=== PATIENT | male | born 1960 | race Caucasian/White ===

== ENCOUNTER 2018-01-22 16:58 | Inpatient (IN) | payer MEDICARE, MEDICAID ==
--- NOTE | 2018-01-22 17:34 | ED Physician Chart ---
ED Chief Complaint/HPI - Patient Information Date Seen:: 01/22/18 Time Seen:: 17:10 Chief Complaint:: Agitation History of Present Illness:: onset x 3 days of agitation and aggressive behavior; no report of trauma, H/as, neck pain, C/P, SOB, Abd. Pain, A/N/V/D/C, fever, chills, SIs, or urinary s/s Allergies:: Allergies Allergy/AdvReac Type Severity Reaction Status Date / Time fluphenazine Allergy Verified 01/22/18 17:13 haloperidol [From Haldol] Allergy Verified 01/22/18 17:12 PROLIXIN Allergy Uncoded 12/21/15 16:57 Vitals:: Vital Signs - 8 hr 01/22/18 17:14 Temp 98.7 F HR 82 RR 20 BP 136/82 O2 Sat % 100 Historian:: Patient, EMS Review:: Nurse's Note Reviewed, Old Chart Reviewed, EMS run form Reviewed ED Review of Systems - Review of Systems General/Constitutional: No fever, No chills, No weight loss, No weakness, No diaphoresis, No edema, No loss of appetite Skin: No skin lesions, No rash, No bruising Head: No headache, No light-headedness Eyes: No loss of vision, No pain, No diplopia ENT: No earache, No nasal drainage, No sore throat, No tinnitus Neck: No neck pain, No swelling, No thyromegaly, No stiffness, No mass noted Cardio Vascular: No chest pain, No palpitations, No PND, No orthopnea, No edema Pulmonary: No SOB, No cough, No sputum, No wheezing GI: No nausea, No vomiting, No diarrhea, No pain, No melena, No hematochezia, No constipation, No hematemesis G/U: No dysuria, No frequency, No hematuria, No nacturia Musculoskeletal: No bone or joint pain, No back pain, No muscle pain Endocrine: No polyuria, No polydipsia Psychiatric: Prior psych history, Depression, Anxiety, No suicidal ideation, No homicidal ideation, Auditory hallucination, No visual hallucination Hematopoietic: No bruising, No lymphadenopathy Allergic/Immuno: No urticaria, No angioedema Neurological: No syncope, No focal symptoms, No weakness, No paresthesia, No headache, No seizure, No dizziness, No confusion, No vertigo ED Past Medical History - Past Medical History Obtainable: Yes Past Medical History: HTN, DM, CAD, CHF, Asthma/COPD, ESRD Family History: HTN Social History: Non Smoker, No Alcohol, No Drug Use, Single, Care Facility Surgical History: None Psychiatricy History: Depression, Schizophrenia, Bipolar Medication: Reviewed Family Medical History - Family Member Mother History Unknown: Yes ED Physical Exam - Physical Examination General/Constitutional: Awake, Well-developed, well-nourished, Alert, No distress, GCS 15, Non-toxic appearing, Ambulatory Head: Atraumatic Eyes: Lids, conjuctiva normal, PERRL, EOMI Skin: Nl inspection, No rash, No skin lesions, No ecchymosis, Well hydrated, No lymphadenopathy ENMT: External ears, nose nl, TM canals nl, Nasal exam nl, Lips, teeth, gums nl , Oropharynx nl, Tonsils nl Neck: Nontender, Full ROM w/o pain, No JVD, No nuchal rigidity, No bruit, No mass, No stridor Respiratory: Nl effort/Exclusion, Clear to Auscultation, No Wheeze/Rhonchi/Rales Cardio Vascular: RRR, No murmur, gallop, rubs, NL S1 S2, Carotid/Femoral/Distal pulses equal bilaterally GI: No tenderness/rebounding/guarding, No organomegaly, No hernia, Normal BS's, Nondistended, No mass/bruits, No McBurney tenderness : No CVA tenderness Extremities: No tenderness or effusion, Full ROM, normal strength in all extremities, No edema, Normal digits & nails Neuro/Psych: Alert/oriented, DTR's symmetric, Normal sensory exam, Normal motor strength, Judgement/insight normal, Mood normal, Normal gait, No focal deficits Other Neuro/Psych comments:: + Psychomotor Agitation; Mood/Affect: Labile; no SIs Misc: Normal back, No paraspinal tenderness ED Labs/Radiology/EKG Results - Lab Results Comments:: unremarkable ED Septic Shock - . Is Septic Shock (SBP<90, OR Lactate>4 mmol\L) present?: No - <6hrs of presentation: Vital Signs: Vital Signs - 8 hr 01/22/18 17:14 Temp 98.7 F HR 82 RR 20 BP 136/82 O2 Sat % 100 ED Reassessment (Disposition) - Reassessment Reassessment Condition:: Improved - Diagnosis Diagnosis:: Dx: Agitation; Psychosis; Bipolar Disorder - Aftercare/Follow up Instructions Aftercare/Follow-Up Instructions:: Counseled pt regarding lab results/diagnosis & need follow up, Counseled pt & family regarding lab results/diagnosis & need follow up - Patient Disposition Discharge/Transfer:: Acute Care w/in this hosp Accepting Physician:: Dr. Foley Time Called:: 1899 Time Responded:: 19:00 Admitted to:: [facility] Spoke to:: Dr. Foley Admitting Medical Physician:: Dr. Foley Admitting Psych Physician:: Dr. Dhaliwal Condition at Disposition:: Stable, Improved
[2018-01-22 17:45] LABS: % BASOPHILS 1.3 % (0.0-2.0); % EOSINOPHILS 1.2 % (0.0-5.0); % LYMPHOCYTES 31.9 % (20.0-50.0); % MONOCYTES 10.4 % (2.0-10.0); % NEUTROPHILS 55.2 % (40.0-80.0); BASOPHILE ABSOLUTE 0.1 Th/cumm (0-0.2); EOSINOPHILE ABSOLUTE 0.1 Th/cmm (0.1-0.4); HEMATOCRIT 45.8 % (41.0-60); HEMOGLOBIN 15.5 gm/dL (12-16); LYMPHOCYTE ABSOLUTE 2.3 Th/cmm (1.5-3.0); MEAN CELL VOLUME 93.5 fl (80-99); MEAN CORPUSCULAR HEMOGLOBIN 31.6 pg (26.0-30.0); MEAN CORPUSCULAR HGB CONC 33.8 pg (28.0-36.0); MEAN PLATELET VOLUME 7.9 fl; MONOCYTE ABSOLUTE 0.8 Th/cmm (0.3-1.0); PLATELET COUNT 214 Th/cmm (150-400); RED CELL DISTRIBUTION WIDTH 12.3 % (11.5-20.0); WHITE BLOOD COUNT 7.3 Th/cmm (4.8-10.8)
[2018-01-22 18:04] LABS: ACETAMINOPHEN < 10.0 ug/mL (10.0-30.0); ALB/GLOB RATIO 1.1 (1.0-1.8); ALBUMIN 3.7 gm/dL (4.2-5.5); ALKALINE PHOSPHATASE 28 U/L (34-104); BILIRUBIN,TOTAL 0.3 mg/dL (0.3-1.0); BUN - UREA NITROGEN 29 mg/dL (7-25); CALCIUM SERUM 9.9 mg/dL (8.6-10.3); CARBON DIOXIDE 21.2 mEq/L (21.0-31.0); CHLORIDE 103 mEq/L (98-107); CHOLESTEROL 209 mg/dL (<200); CREATININE - SERUM 1.8 mg/dL (0.7-1.3); GFR AFRICAN-AMERICAN 50.4 ml/min (>90); GFR NON AFRICAN-AMERICAN 41.7 ml/min; GLUCOSE 186 mg/dL (70-105); HDL -HIGH DENSITY LIPOPROTEIN 34 mg/dL (23-92); POTASSIUM SERUM 4.2 mEq/L (3.5-5.1); SALICYLATES (ASPIRIN) < 25.0 mg/L (30.0-100.0); SGOT 16 U/L (13-39); SGPT/ALT 22 U/L (7-52); SODIUM SERUM 130 mEq/L (136-145); TRIGLYCERIDES 435 mg/dL (<150)
[2018-01-22 20:30] VITALS: BP 146/89
[2018-01-22] MEDS ORDERED: Non-Formulary Item 1 EA (Glucagon,Human Recombinant [Glucagon Emergency Kit] 1 MG) SUBQ PRN (22:56)
--- NOTE | 2018-01-23 02:03 | History & Physical ---
ADMIT DATE: 01/22/2018 HISTORY OF PRESENT ILLNESS: The patient is a 58-year-old male with long history of diabetes mellitus, hypertension, psychosis and Alzheimer disease, admitted to our [facility] and Dr. Dhaliwal's service for treatment. The patient will resume his medication and diet. No fever, no chills, no nausea, no vomiting. PAST MEDICAL HISTORY: Significant for psychosis, hypertension, diabetes mellitus and hyperlipidemia. PAST SURGICAL HISTORY: No recent surgery. ALLERGIES: He is allergic to FLUPHENAZINE, HALOPERIDOL and PROLIXIN. SOCIAL HISTORY: No smoking, no alcohol, no drug. FAMILY HISTORY: Noncontributory. REVIEW OF SYSTEMS: IMMUNOSYSTEM: No history of chronic renal disorder. CARDIOVASCULAR SYSTEM: He has history of hypertension. No coronary artery disease. ENDOCRINE SYSTEM: He has history of diabetes mellitus. GASTROINTESTINAL SYSTEM: No upper or lower gastrointestinal bleed. NEUROLOGICAL: He has history of psychosis. SKELETOMUSCULAR SYSTEM: No muscular dystrophy. HEMATOLOGICAL SYSTEM: No bleeding tendency. RESPIRATORY SYSTEM: No asthma. GENITOURINARY: No dysuria or hematuria. PHYSICAL EXAMINATION: GENERAL: He is awake. Not coherent. VITAL SIGNS: Temperature 98.7, heart rate 82 and blood pressure is 132/92. HEENT: Normocephalic. Pupils reactive to light and accommodation. Sclerae clear. NECK: Supple. Negative for lymphadenopathy, JVD or bruit. CHEST: Entry of air bilateral normal. No rhonchi or wheezing. HEART: S1 and S2 normal. No gallop rhythm. ABDOMEN: Soft, bowel sounds positive. EXTREMITIES: No edema. BACK: Nontender. SKIN: Intact. GENITALIA AND RECTAL: Done by primary physician. NEUROLOGIC: Awake, alert and confused. No focal motor or sensory deficit. Cranial nerves 2-12 intact. LABORATORY DATA: White blood cell 7.3, hemoglobin 15.5, hematocrit 45.8 and platelet 214. Sodium 130, potassium 4.2, BUN 29, creatinine 2.8, triglycerides 435 and cholesterol 209. ASSESSMENT: 1. Diabetes mellitus. 2. Hypertension. 3. Hyperlipidemia. 4. Hyponatremia. 5. Chronic kidney disease. 6. Psychosis. PLAN: The patient will be admitted to the hospital under Dr. Dhaliwal's service. Medical problems addressed during the hospitalization psychosis. Medical problems addressed at discharge, hypertension, diabetes mellitus and hyperlipidemia. The patient is medically stable for activity. Thank you, Dr. Dhaliwal, for asking me to see your patient. JOB# [id number]
[2018-01-23] MEDS: INSULIN ASPART SLIDING SCALE 100 UNITS/ML UNIT SUBQ SCH ×4 (06:32→21:13)
[2018-01-23] MEDS ORDERED: INSULIN ASPART, RECOMBINANT 100 UNITS/ML SUBQ SCH (09:00)
[2018-01-23] MEDS ORDERED: LEVOCARNITINE PO SCH (09:00)
[2018-01-23] MEDS: Lactulose 10 Gm/15 mL 30mL UDC PO SCH (09:04)
[2018-01-23 18:41] LABS: A1C % 8.1 % (4.0-6.0)
[2018-01-23] MEDS ORDERED: Insulin Detemir 100 units/mL 10mL Vial SUBQ SCH (21:00)
[2018-01-23] MEDS: Atorvastatin Calcium 10 MG TAB PO SCH (21:12)
[2018-01-23] MEDS: Fenofibrate, Micronized 134 mg Cap PO SCH (21:13)
--- NOTE | 2018-01-23 21:16 | Internal Medicine Prog Note ---
Internal Medicine Subjective - Subjective Service Date: 01/23/18 Patient seen and examined:: with staff Patient is:: awake, in bed, talking Per staff patient has:: no adverse event (HE FEELS WELL) Internal Medicine Objective - Results Result Diagrams: 01/22/18 17:35 01/22/18 17:35 Recent Labs: Laboratory Last Values WBC 7.3 Th/cmm (4.8-10.8) 01/22/18 17:35 RBC 4.90 Mil/cmm (4.30-5.70) 01/22/18 17:35 Hgb 15.5 gm/dL (12-16) 01/22/18 17:35 Hct 45.8 % (41.0-60) 01/22/18 17:35 MCV 93.5 fl (80-99) 01/22/18 17:35 MCH 31.6 pg (26.0-30.0) H 01/22/18 17:35 MCHC Differential 33.8 pg (28.0-36.0) 01/22/18 17:35 RDW 12.3 % (11.5-20.0) 01/22/18 17:35 Plt Count 214 Th/cmm (150-400) 01/22/18 17:35 MPV 7.9 fl 01/22/18 17:35 Neutrophils % 55.2 % (40.0-80.0) 01/22/18 17:35 Lymphocytes % 31.9 % (20.0-50.0) 01/22/18 17:35 Monocytes % 10.4 % (2.0-10.0) H 01/22/18 17:35 Eosinophils % 1.2 % (0.0-5.0) 01/22/18 17:35 Basophils % 1.3 % (0.0-2.0) 01/22/18 17:35 Sodium 130 mEq/L (136-145) L 01/22/18 17:35 Potassium 4.2 mEq/L (3.5-5.1) 01/22/18 17:35 Chloride 103 mEq/L (98-107) 01/22/18 17:35 Carbon Dioxide 21.2 mEq/L (21.0-31.0) 01/22/18 17:35 Anion Gap 10.0 (7.0-16.0) 01/22/18 17:35 BUN 29 mg/dL (7-25) H 01/22/18 17:35 Creatinine 1.8 mg/dL (0.7-1.3) H 01/22/18 17:35 Est GFR ( Amer) 50.4 ml/min (>90) 01/22/18 17:35 Est GFR (Non-Af Amer) 41.7 ml/min 01/22/18 17:35 BUN/Creatinine Ratio 16.1 01/22/18 17:35 Glucose 186 mg/dL (70-105) H 01/22/18 17:35 POC Glucose 99 MG/DL (70 - 105) 01/23/18 17:29 Hemoglobin A1c % 8.1 % (4.0-6.0) H 01/22/18 17:35 Calcium 9.9 mg/dL (8.6-10.3) 01/22/18 17:35 Total Bilirubin 0.3 mg/dL (0.3-1.0) 01/22/18 17:35 AST 16 U/L (13-39) 01/22/18 17:35 ALT 22 U/L (7-52) 01/22/18 17:35 Alkaline Phosphatase 28 U/L (34-104) L 01/22/18 17:35 Total Protein 7.0 gm/dL (6.0-8.3) 01/22/18 17:35 Albumin 3.7 gm/dL (4.2-5.5) L 01/22/18 17:35 Globulin 3.3 gm/dL 01/22/18 17:35 Albumin/Globulin Ratio 1.1 (1.0-1.8) 01/22/18 17:35 Triglycerides 435 mg/dL (<150) H 01/22/18 17:35 Cholesterol 209 mg/dL (<200) H 01/22/18 17:35 LDL Cholesterol Direct 106 mg/dL (75-193) 01/22/18 17:35 HDL Cholesterol 34 mg/dL (23-92) 01/22/18 17:35 TSH 0.66 uIU/ml (0.34-5.60) 01/22/18 17:35 Salicylates < 25.0 mg/L (30.0-100.0) L 01/22/18 17:35 Acetaminophen < 10.0 ug/mL (10.0-30.0) L 01/22/18 17:35 Ethyl Alcohol < 10 mg/dL (0-10) 01/22/18 17:35 RPR NONREACTIVE (NONREACTIVE) 01/22/18 17:35 - Physical Exam Vitals and I&O: Vital Signs Temp 97.5 F 01/23/18 13:56 Pulse 83 01/23/18 13:56 Resp 20 01/23/18 13:56 BP 145/84 01/23/18 13:56 Pulse Ox 94 01/23/18 13:56 Intake & Output 01/23/18 01/23/18 01/24/18 06:59 18:59 06:59 Intake Total 1200 Balance 1200 Intake: Oral 1200 Other: # Voids 3 Active Medications: Current Medications Aspirin (Ecotrin) 81 mg PO DAILY [facility] Stop: 03/24/18 08:59 Last Admin: 01/23/18 09:04 Dose: Not Given Atorvastatin Calcium (Lipitor) 40 mg PO HS [facility] Stop: 03/24/18 20:59 Chlorpromazine (Thorazine) 100 mg PO BID [facility] Stop: 03/24/18 08:59 Last Admin: 01/23/18 16:22 Dose: 100 mg Clonazepam (Klonopin) 0.5 mg PO BID [facility] PRN Reason: Protocol Stop: 03/24/18 08:59 Last Admin: 01/23/18 16:22 Dose: 0.5 mg Fenofibrate (Tricor) 134 mg PO HS [facility] Stop: 03/24/18 20:59 Insulin Aspart (Novolog Insulin Sliding Scale) 0 units SUBQ ACHS [facility] PRN Reason: Protocol Stop: 03/24/18 07:29 Last Admin: 01/23/18 17:33 Dose: Not Given Insulin Aspart (Novolog) units SUBQ TID [facility] PRN Reason: Protocol Stop: 03/24/18 08:59 Insulin Detemir (Levemir Insulin) 30 units SUBQ HS [facility] Stop: 03/24/18 20:59 Lactulose (Cephulac) 30 gm PO DAILY [facility] Stop: 03/24/18 08:59 Last Admin: 01/23/18 09:04 Dose: Not Given Lisinopril (Zestril) 5 mg PO DAILY [facility] Stop: 03/24/18 16:59 Last Admin: 01/23/18 17:33 Dose: Not Given Lorazepam (Ativan) 0.5 mg PO Q6HR PRN; Protocol PRN Reason: Agitation Stop: 03/23/18 23:41 Miscellaneous (Glucagon,Human Recombinant [Glucagon Emergency Kit]) 1 mg SUBQ ONCE PRN PRN Reason: low sugar level Miscellaneous (Insulin Glargine, Recombinan [Lantus]) 30 unit SUBQ DAILY [facility] Stop: 03/24/18 08:59 Quetiapine Fumarate (Seroquel) 300 mg PO TID [facility] PRN Reason: Protocol Stop: 03/24/18 08:59 Last Admin: 01/23/18 14:11 Dose: 300 mg Zolpidem Tartrate (Ambien) 5 mg PO HS PRN PRN Reason: Insomnia Stop: 03/23/18 23:43 General: demented HEENT: NC/AT, PERRLA, EOMI, anicteric sclerae, throat clear Neck: Supple, No JVD, No thyromegaly, +2 carotid pulse wo bruit, No LAD, + JVD Lungs: CTAB Cardiovascular: RRR, Normal S1, Normal S2, without murmur Abdomen: non-tender, non-distended Neurological: no change Internal Medicine Assmt/Plan - Assessment Assessment: 1.DM. 2.HTN. 3.HYPELIPEDEMIA 4.PSYCHOSIS. - Plan Plan: CONTINUE ON CURRENT MEDICATION AND DIET. Nutritional Asmnt/Malnutr-PDOC - Dietary Evaluation Malnutrition Findings (Please click <Entered> for more info): Nutritional Asmnt/Malnutrition Start: 01/23/18 13: 46 Text: Status: Complete Freq: Document 01/23/18 13:46 HENG (Rec: 01/23/18 13:58 [email or web address] [email or web address]) Nutritional Asmnt/Malnutrition Patient General Information Nutritional Screening High Risk Diagnosis psychosis Pertinent Medical Hx/Surgical Hx psychosis, HTN, DM, hyperlipidemia Subjective Information Pt seen sitting in hallway, confused, eating lunch at time of visit. By observation, pt consumed 90% of his lunch. Pt got angry when talking about diabetes and blood sugar. Pt stated he has no diabetes. glucose 186 at admitting noted . Current [facility]/ [facility] Pertinent Medications novolog, cephulac, seroquel Pertinent Labs 3/21 Na 130, BUN 29, Cr 1.8, glucose 186, POC 267 Nutritional Hx/Data Height 1.78 m Height (Calculated Centimeters) 177.8 Current Weight (lbs) 68.039 kg Weight (Calculated Kilograms) 68.0 Weight (Calculated Grams) 79047.9 [place] Body Weight 166 % [place] Body Weight 90 Body Mass Index (BMI) 21.5 Weight Status Approriate GI Symptoms GI Symptoms None Last BM no record Difficult in: None Skin Integrity/Comment: not indicated Estimated Nutritional Goals BEE in Kcals: Using Current wt Calories/Kcals/Kg 25-30 Kcals Calculated 0458-1192 Protein: Using Current wt Protein g/k-1.2 Protein Calculated 68-82 Fluid: ml 1700-2040ml (1ml/kcal) Nutritional Problem 1. Problem Problem altered nutrition related labs Etiology chronic renal suff, hx of DM Signs/Symptoms: BUN 29, Cr 1.8, glucose 186, POC 267 Malnutrition Alert Protein-Calorie Malnutrition N/A Is there a minimum of two criteria No selected? Query Text:Check all the applicable criteria. A minimum of two criteria are recommended for diagnosis of either severe or non-severe malnutrition. Intervention/Recommendation Comments 1. Continue with CCHO-60gm diet as ordered. Monitor accucheck. 2. Monitor PO intake, wt, labs and skin integrity 3. F/U as moderate risk in 3-5 days, 01/26-01/28 Expected Outcomes/Goals Expected Outcomes/Goals 1. PO intake to meet at least 75% of nutritional needs. 2. Wt stability, skin to remain intact, labs to approach WNL.
[2018-01-24] MEDS: INSULIN ASPART SLIDING SCALE 100 UNITS/ML UNIT SUBQ SCH ×5 (07:45→20:28)
[2018-01-24] MEDS: Lactulose 10 Gm/15 mL 30mL UDC PO SCH (09:23)
[2018-01-24] MEDS: Insulin Detemir 100 units/mL 10mL Vial SUBQ SCH ×2 (10:08→22:13)
[2018-01-24] MEDS: Fenofibrate, Micronized 134 mg Cap PO SCH ×2 (20:23→20:28)
[2018-01-24] MEDS: Atorvastatin Calcium 10 MG TAB PO SCH ×2 (20:23→20:28)
--- NOTE | 2018-01-24 20:45 | Progress Notes ---
DATE: SUBJECTIVE: Chart reviewed and the patient interviewed. Also discussed the patient's condition with the staff and reviewed records and labs. The patient seems to be more depressed and isolative today and he wants to be left alone and stays by himself most of the time. The patient also is still guarded and still seems to be suspicious and paranoid. Also, easily agitated and still have episodes of threatening staff and getting aggressive. Otherwise, the patient is compliant with taking his medications with no side effect of medications. ASSESSMENT: The patient is still agitated and still psychotic. TREATMENT PLAN: Continue monitoring his behavior and work on behavioral modification. Also, yesterday, I increased Seroquel to 300 mg 3 times a day and will continue at same dose. Also, continue Thorazine in a dose of 100 mg twice a day and will continue to follow up his behavior and his condition closely. JOB# [id number]
--- NOTE | 2018-01-24 21:35 | Internal Medicine Prog Note ---
Internal Medicine Subjective - Subjective Service Date: 01/24/18 Patient seen and examined:: with staff Patient is:: awake, in bed, talking Per staff patient has:: no adverse event (HE FEELS WELL) Internal Medicine Objective - Results Result Diagrams: 01/22/18 17:35 01/22/18 17:35 Recent Labs: Laboratory Last Values WBC 7.3 Th/cmm (4.8-10.8) 01/22/18 17:35 RBC 4.90 Mil/cmm (4.30-5.70) 01/22/18 17:35 Hgb 15.5 gm/dL (12-16) 01/22/18 17:35 Hct 45.8 % (41.0-60) 01/22/18 17:35 MCV 93.5 fl (80-99) 01/22/18 17:35 MCH 31.6 pg (26.0-30.0) H 01/22/18 17:35 MCHC Differential 33.8 pg (28.0-36.0) 01/22/18 17:35 RDW 12.3 % (11.5-20.0) 01/22/18 17:35 Plt Count 214 Th/cmm (150-400) 01/22/18 17:35 MPV 7.9 fl 01/22/18 17:35 Neutrophils % 55.2 % (40.0-80.0) 01/22/18 17:35 Lymphocytes % 31.9 % (20.0-50.0) 01/22/18 17:35 Monocytes % 10.4 % (2.0-10.0) H 01/22/18 17:35 Eosinophils % 1.2 % (0.0-5.0) 01/22/18 17:35 Basophils % 1.3 % (0.0-2.0) 01/22/18 17:35 Sodium 130 mEq/L (136-145) L 01/22/18 17:35 Potassium 4.2 mEq/L (3.5-5.1) 01/22/18 17:35 Chloride 103 mEq/L (98-107) 01/22/18 17:35 Carbon Dioxide 21.2 mEq/L (21.0-31.0) 01/22/18 17:35 Anion Gap 10.0 (7.0-16.0) 01/22/18 17:35 BUN 29 mg/dL (7-25) H 01/22/18 17:35 Creatinine 1.8 mg/dL (0.7-1.3) H 01/22/18 17:35 Est GFR ( Amer) 50.4 ml/min (>90) 01/22/18 17:35 Est GFR (Non-Af Amer) 41.7 ml/min 01/22/18 17:35 BUN/Creatinine Ratio 16.1 01/22/18 17:35 Glucose 186 mg/dL (70-105) H 01/22/18 17:35 POC Glucose 99 MG/DL (70 - 105) 01/23/18 17:29 Hemoglobin A1c % 8.1 % (4.0-6.0) H 01/22/18 17:35 Calcium 9.9 mg/dL (8.6-10.3) 01/22/18 17:35 Total Bilirubin 0.3 mg/dL (0.3-1.0) 01/22/18 17:35 AST 16 U/L (13-39) 01/22/18 17:35 ALT 22 U/L (7-52) 01/22/18 17:35 Alkaline Phosphatase 28 U/L (34-104) L 01/22/18 17:35 Total Protein 7.0 gm/dL (6.0-8.3) 01/22/18 17:35 Albumin 3.7 gm/dL (4.2-5.5) L 01/22/18 17:35 Globulin 3.3 gm/dL 01/22/18 17:35 Albumin/Globulin Ratio 1.1 (1.0-1.8) 01/22/18 17:35 Triglycerides 435 mg/dL (<150) H 01/22/18 17:35 Cholesterol 209 mg/dL (<200) H 01/22/18 17:35 LDL Cholesterol Direct 106 mg/dL (75-193) 01/22/18 17:35 HDL Cholesterol 34 mg/dL (23-92) 01/22/18 17:35 TSH 0.66 uIU/ml (0.34-5.60) 01/22/18 17:35 Salicylates < 25.0 mg/L (30.0-100.0) L 01/22/18 17:35 Acetaminophen < 10.0 ug/mL (10.0-30.0) L 01/22/18 17:35 Ethyl Alcohol < 10 mg/dL (0-10) 01/22/18 17:35 RPR NONREACTIVE (NONREACTIVE) 01/22/18 17:35 - Physical Exam Vitals and I&O: Vital Signs Temp 98.7 F 01/24/18 20:31 Pulse 92 01/24/18 20:31 Resp 20 01/24/18 20:31 BP 129/67 01/24/18 20:31 Pulse Ox 98 01/24/18 20:31 Intake & Output 01/24/18 01/24/18 01/25/18 06:59 18:59 06:59 Intake Total 1000 320 Balance 1000 320 Intake: Oral 320 Other 1000 Other: # Voids 3 1 # Bowel Movements 1 Active Medications: Current Medications Aspirin (Ecotrin) 81 mg PO DAILY [facility] Stop: 03/24/18 08:59 Last Admin: 01/24/18 09:25 Dose: 81 mg Atorvastatin Calcium (Lipitor) 40 mg PO HS [facility] Stop: 03/24/18 20:59 Last Admin: 01/24/18 20:28 Dose: Not Given Chlorpromazine (Thorazine) 100 mg PO BID [facility] Stop: 03/24/18 08:59 Last Admin: 01/24/18 16:38 Dose: 100 mg Clonazepam (Klonopin) 0.5 mg PO BID [facility] PRN Reason: Protocol Stop: 03/24/18 08:59 Last Admin: 01/24/18 16:39 Dose: 0.5 mg Fenofibrate (Tricor) 134 mg PO HS [facility] Stop: 03/24/18 20:59 Last Admin: 01/24/18 20:28 Dose: Not Given Insulin Aspart (Novolog Insulin Sliding Scale) 0 units SUBQ ACHS [facility] PRN Reason: Protocol Stop: 03/24/18 07:29 Last Admin: 01/24/18 20:28 Dose: Not Given Insulin Aspart (Novolog) units SUBQ TID [facility] PRN Reason: Protocol Stop: 03/24/18 08:59 Insulin Detemir (Levemir Insulin) 30 units SUBQ Q12H [facility] Stop: 03/24/18 10:59 Last Admin: 01/24/18 10:08 Dose: Not Given Lactulose (Cephulac) 30 gm PO DAILY [facility] Stop: 03/24/18 08:59 Last Admin: 01/24/18 09:23 Dose: 30 gm Lisinopril (Zestril) 5 mg PO DAILY [facility] Stop: 03/24/18 16:59 Last Admin: 01/24/18 09:24 Dose: 5 mg Lorazepam (Ativan) 0.5 mg PO Q6HR PRN; Protocol PRN Reason: Agitation Stop: 03/23/18 23:41 Quetiapine Fumarate (Seroquel) 300 mg PO TID [facility] PRN Reason: Protocol Stop: 03/24/18 08:59 Last Admin: 01/24/18 20:29 Dose: Not Given Zolpidem Tartrate (Ambien) 5 mg PO HS PRN PRN Reason: Insomnia Stop: 03/23/18 23:43 General: demented HEENT: NC/AT, PERRLA, EOMI, anicteric sclerae, throat clear Neck: Supple, No JVD, No thyromegaly, +2 carotid pulse wo bruit, No LAD, + JVD Lungs: CTAB Cardiovascular: RRR, Normal S1, Normal S2, without murmur Abdomen: non-tender, non-distended Neurological: no change Internal Medicine Assmt/Plan - Assessment Assessment: 1.DM. 2.HTN. 3.HYPELIPEDEMIA 4.PSYCHOSIS. - Plan Plan: CONTINUE ON CURRENT MEDICATION AND DIET. Nutritional Asmnt/Malnutr-PDOC - Dietary Evaluation Malnutrition Findings (Please click <Entered> for more info): Nutritional Asmnt/Malnutrition Start: 01/23/18 13: 46 Text: Status: Complete Freq: Document 01/23/18 13:46 HENG (Rec: 01/23/18 13:58 LCHENG [email or web address]) Nutritional Asmnt/Malnutrition Patient General Information Nutritional Screening High Risk Diagnosis psychosis Pertinent Medical Hx/Surgical Hx psychosis, HTN, DM, hyperlipidemia Subjective Information Pt seen sitting in hallway, confused, eating lunch at time of visit. By observation, pt consumed 90% of his lunch. Pt got angry when talking about diabetes and blood sugar. Pt stated he has no diabetes. glucose 186 at admitting noted . Current Diet Order/ Nutrition Support CCHO-60gm Pertinent Medications novolog, cephulac, seroquel Pertinent Labs 01/22 Na 130, BUN 29, Cr 1.8, glucose 186, POC 267 Nutritional Hx/Data Height 1.78 m Height (Calculated Centimeters) 177.8 Current Weight (lbs) 68.039 kg Weight (Calculated Kilograms) 68.0 Weight (Calculated Grams) 90522.9 [place] Body Weight 166 % [place] Body Weight 90 Body Mass Index (BMI) 21.5 Weight Status Approriate GI Symptoms GI Symptoms None Last BM no record Difficult in: None Skin Integrity/Comment: not indicated Estimated Nutritional Goals BEE in Kcals: Using Current wt Calories/Kcals/Kg 25-30 Kcals Calculated 1956-3793 Protein: Using Current wt Protein g/k-1.2 Protein Calculated 68-82 Fluid: ml 1700-2040ml (1ml/kcal) Nutritional Problem 1. Problem Problem altered nutrition related labs Etiology chronic renal suff, hx of DM Signs/Symptoms: BUN 29, Cr 1.8, glucose 186, POC 267 Malnutrition Alert Protein-Calorie Malnutrition N/A Is there a minimum of two criteria No selected? Query Text:Check all the applicable criteria. A minimum of two criteria are recommended for diagnosis of either severe or non-severe malnutrition. Intervention/Recommendation Comments 1. Continue with CCHO-60gm diet as ordered. Monitor accucheck. 2. Monitor PO intake, wt, labs and skin integrity 3. F/U as moderate risk in 3-5 days, 01/26-01/28 Expected Outcomes/Goals Expected Outcomes/Goals 1. PO intake to meet at least 75% of nutritional needs. 2. Wt stability, skin to remain intact, labs to approach WNL.
--- NOTE | 2018-01-25 06:07 | Psychosocial Evaluation ---
DATE OF SERVICE: 01/22/2018 PSYCHIATRIC INITIAL EVALUATION AND MENTAL STATUS EXAMINATION PATIENT'S AGE: 58-year-old. SEX: Male. PHYSICIAN: Chanelle Dhaliwal MD, MPH CHIEF COMPLAINT: Agitation and aggressive behavior. HISTORY OF PRESENT ILLNESS: The patient is a 58-year-old male who lives in [facility]. The patient has been extremely agitated and aggressive with the staff and has not been able to follow any of staff directions. The patient was hitting other patients and staff. Also was not able to comply with taking medications. He also has been suspicious and has been paranoid. In the hospital, the patient has been in angry and in irritable mood and has been also agitated. PAST PSYCHIATRIC HISTORY: The patient has history of multiple psychiatric hospitalizations and treatment of schizophrenia. PAST MEDICAL HISTORY: The patient has diabetes mellitus as well as hypertension, hyperlipidemia, hyponatremia and chronic kidney disease. SOCIAL HISTORY: The patient lives in [facility]. No known alcohol or street drug use. ALLERGIES: No known allergies. MENTAL STATUS EXAMINATION: The patient appears slightly older than his stated age. Disheveled. Angry and irritable moods. Thought processes are circumstantial with flight of ideas. The patient denies auditory or visual hallucinations but actively responding to stimuli. The patient did not answer questions regarding suicide or homicide. The patient is alert and oriented to . Unable to assess his memory at this time, but this patient is agitated and in irritable mood. Poor insight. Poor judgment. ASSESSMENT: Primary diagnosis: Chronic paranoid schizophrenia with psychotic exacerbation. TREATMENT PLAN: We will continue to monitor the patient's behavior and condition closely. We will continue Thorazine and Seroquel and Depakote and we will adjust the dose. ESTIMATED LENGTH OF STAY: 5-7 days. THE PATIENT'S STRENGTHS AND WEAKNESSES: The patient's strength is not clear at this time. Weaknesses is ineffective coping and poor impulse control. AFTER DISCHARGE PLAN: The patient's treatment and followup will continue as an outpatient. CRITERIA FOR DISCHARGE: The patient will not be psychotic and will stabilize psychotropic medications and have better impulse control and we will establish outpatient treatment plans. JOB# [id number]
[2018-01-25] MEDS: INSULIN ASPART SLIDING SCALE 100 UNITS/ML UNIT SUBQ SCH ×4 (06:44→22:06)
[2018-01-25] MEDS: Lactulose 10 Gm/15 mL 30mL UDC PO SCH (09:21)
[2018-01-25] MEDS: Insulin Detemir 100 units/mL 10mL Vial SUBQ SCH ×2 (12:02→23:20)
--- NOTE | 2018-01-25 12:08 | Internal Medicine Prog Note ---
Internal Medicine Subjective - Subjective Service Date: 01/25/18 Patient seen and examined:: with staff Patient is:: awake, in bed, talking Per staff patient has:: no adverse event (HE FEELS WELL) Internal Medicine Objective - Results Result Diagrams: 01/22/18 17:35 01/22/18 17:35 Recent Labs: Laboratory Last Values WBC 7.3 Th/cmm (4.8-10.8) 01/22/18 17:35 RBC 4.90 Mil/cmm (4.30-5.70) 01/22/18 17:35 Hgb 15.5 gm/dL (12-16) 01/22/18 17:35 Hct 45.8 % (41.0-60) 01/22/18 17:35 MCV 93.5 fl (80-99) 01/22/18 17:35 MCH 31.6 pg (26.0-30.0) H 01/22/18 17:35 MCHC Differential 33.8 pg (28.0-36.0) 01/22/18 17:35 RDW 12.3 % (11.5-20.0) 01/22/18 17:35 Plt Count 214 Th/cmm (150-400) 01/22/18 17:35 MPV 7.9 fl 01/22/18 17:35 Neutrophils % 55.2 % (40.0-80.0) 01/22/18 17:35 Lymphocytes % 31.9 % (20.0-50.0) 01/22/18 17:35 Monocytes % 10.4 % (2.0-10.0) H 01/22/18 17:35 Eosinophils % 1.2 % (0.0-5.0) 01/22/18 17:35 Basophils % 1.3 % (0.0-2.0) 01/22/18 17:35 Sodium 130 mEq/L (136-145) L 01/22/18 17:35 Potassium 4.2 mEq/L (3.5-5.1) 01/22/18 17:35 Chloride 103 mEq/L (98-107) 01/22/18 17:35 Carbon Dioxide 21.2 mEq/L (21.0-31.0) 01/22/18 17:35 Anion Gap 10.0 (7.0-16.0) 01/22/18 17:35 BUN 29 mg/dL (7-25) H 01/22/18 17:35 Creatinine 1.8 mg/dL (0.7-1.3) H 01/22/18 17:35 Est GFR ( Amer) 50.4 ml/min (>90) 01/22/18 17:35 Est GFR (Non-Af Amer) 41.7 ml/min 01/22/18 17:35 BUN/Creatinine Ratio 16.1 01/22/18 17:35 Glucose 186 mg/dL (70-105) H 01/22/18 17:35 POC Glucose 99 MG/DL (70 - 105) 01/23/18 17:29 Hemoglobin A1c % 8.1 % (4.0-6.0) H 01/22/18 17:35 Calcium 9.9 mg/dL (8.6-10.3) 01/22/18 17:35 Total Bilirubin 0.3 mg/dL (0.3-1.0) 01/22/18 17:35 AST 16 U/L (13-39) 01/22/18 17:35 ALT 22 U/L (7-52) 01/22/18 17:35 Alkaline Phosphatase 28 U/L (34-104) L 01/22/18 17:35 Total Protein 7.0 gm/dL (6.0-8.3) 01/22/18 17:35 Albumin 3.7 gm/dL (4.2-5.5) L 01/22/18 17:35 Globulin 3.3 gm/dL 01/22/18 17:35 Albumin/Globulin Ratio 1.1 (1.0-1.8) 01/22/18 17:35 Triglycerides 435 mg/dL (<150) H 01/22/18 17:35 Cholesterol 209 mg/dL (<200) H 01/22/18 17:35 LDL Cholesterol Direct 106 mg/dL (75-193) 01/22/18 17:35 HDL Cholesterol 34 mg/dL (23-92) 01/22/18 17:35 TSH 0.66 uIU/ml (0.34-5.60) 01/22/18 17:35 Salicylates < 25.0 mg/L (30.0-100.0) L 01/22/18 17:35 Acetaminophen < 10.0 ug/mL (10.0-30.0) L 01/22/18 17:35 Ethyl Alcohol < 10 mg/dL (0-10) 01/22/18 17:35 RPR NONREACTIVE (NONREACTIVE) 01/22/18 17:35 - Physical Exam Vitals and I&O: Vital Signs Temp 97.8 F 01/25/18 05:16 Pulse 94 01/25/18 09:20 Resp 20 01/25/18 05:16 BP 154/97 01/25/18 09:20 Pulse Ox 98 01/25/18 05:16 Intake & Output 01/24/18 01/25/18 01/25/18 18:59 06:59 18:59 Intake Total 1000 880 Balance 1000 880 Intake: Oral 880 Other 1000 Other: # Voids 3 1 # Bowel Movements 1 Active Medications: Current Medications Aspirin (Ecotrin) 81 mg PO DAILY CORIE Stop: 03/24/18 08:59 Last Admin: 01/25/18 09:21 Dose: 81 mg Atorvastatin Calcium (Lipitor) 40 mg PO HS CORIE Stop: 03/24/18 20:59 Last Admin: 01/24/18 20:28 Dose: Not Given Chlorpromazine (Thorazine) 100 mg PO BID CORIE Stop: 03/24/18 08:59 Last Admin: 01/25/18 09:19 Dose: 100 mg Clonazepam (Klonopin) 0.5 mg PO BID CORIE PRN Reason: Protocol Stop: 03/24/18 08:59 Last Admin: 01/25/18 09:20 Dose: 0.5 mg Fenofibrate (Tricor) 134 mg PO HS [facility] Stop: 03/24/18 20:59 Last Admin: 01/24/18 20:28 Dose: Not Given Insulin Aspart (Novolog Insulin Sliding Scale) 0 units SUBQ ACHS CORIE PRN Reason: Protocol Stop: 03/24/18 07:29 Last Admin: 01/25/18 12:01 Dose: 5 units Insulin Aspart (Novolog) units SUBQ TID CORIE PRN Reason: Protocol Stop: 03/24/18 08:59 Insulin Detemir (Levemir Insulin) 30 units SUBQ Q12H CORIE Stop: 03/24/18 10:59 Last Admin: 01/25/18 12:02 Dose: 30 units Lactulose (Cephulac) 30 gm PO DAILY [facility] Stop: 03/24/18 08:59 Last Admin: 01/25/18 09:21 Dose: 30 gm Lisinopril (Zestril) 5 mg PO DAILY [facility] Stop: 03/24/18 16:59 Last Admin: 01/25/18 09:20 Dose: 5 mg Lorazepam (Ativan) 0.5 mg PO Q6HR PRN; Protocol PRN Reason: Agitation Stop: 03/23/18 23:41 Quetiapine Fumarate (Seroquel) 300 mg PO TID CORIE PRN Reason: Protocol Stop: 03/24/18 08:59 Last Admin: 01/25/18 09:20 Dose: 300 mg Zolpidem Tartrate (Ambien) 5 mg PO HS PRN PRN Reason: Insomnia Stop: 03/23/18 23:43 General: demented HEENT: NC/AT, PERRLA, EOMI, anicteric sclerae, throat clear Neck: Supple, No JVD, No thyromegaly, +2 carotid pulse wo bruit, No LAD, + JVD Lungs: CTAB Cardiovascular: RRR, Normal S1, Normal S2, without murmur Abdomen: non-tender, non-distended Neurological: no change Internal Medicine Assmt/Plan - Assessment Assessment: 1.DM. 2.HTN. 3.HYPELIPEDEMIA 4.PSYCHOSIS. - Plan Plan: CONTINUE ON CURRENT MEDICATION AND DIET. Nutritional Asmnt/Malnutr-PDOC - Dietary Evaluation Malnutrition Findings (Please click <Entered> for more info): Nutritional Asmnt/Malnutrition Start: 01/23/18 13: 46 Text: Status: Complete Freq: Document 01/23/18 13:46 HENG (Rec: 01/23/18 13:58 HENG [email or web address]) Nutritional Asmnt/Malnutrition Patient General Information Nutritional Screening High Risk Diagnosis psychosis Pertinent Medical Hx/Surgical Hx psychosis, HTN, DM, hyperlipidemia Subjective Information Pt seen sitting in hallway, confused, eating lunch at time of visit. By observation, pt consumed 90% of his lunch. Pt got angry when talking about diabetes and blood sugar. Pt stated he has no diabetes. glucose 186 at admitting noted . Current Diet Order/ Nutrition Support CCHO-60gm Pertinent Medications novolog, cephulac, seroquel Pertinent Labs 01/22 Na 130, BUN 29, Cr 1.8, glucose 186, POC 267 Nutritional Hx/Data Height 1.78 m Height (Calculated Centimeters) 177.8 Current Weight (lbs) 68.039 kg Weight (Calculated Kilograms) 68.0 Weight (Calculated Grams) 82323.9 [place] Body Weight 166 % [place] Body Weight 90 Body Mass Index (BMI) 21.5 Weight Status Approriate GI Symptoms GI Symptoms None Last BM no record Difficult in: None Skin Integrity/Comment: not indicated Estimated Nutritional Goals BEE in Kcals: Using Current wt Calories/Kcals/Kg 25-30 Kcals Calculated 7450-9404 Protein: Using Current wt Protein g/k-1.2 Protein Calculated 68-82 Fluid: ml 1700-2040ml (1ml/kcal) Nutritional Problem 1. Problem Problem altered nutrition related labs Etiology chronic renal suff, hx of DM Signs/Symptoms: BUN 29, Cr 1.8, glucose 186, POC 267 Malnutrition Alert Protein-Calorie Malnutrition N/A Is there a minimum of two criteria No selected? Query Text:Check all the applicable criteria. A minimum of two criteria are recommended for diagnosis of either severe or non-severe malnutrition. Intervention/Recommendation Comments 1. Continue with CCHO-60gm diet as ordered. Monitor accucheck. 2. Monitor PO intake, wt, labs and skin integrity 3. F/U as moderate risk in 3-5 days, 01/26-01/28 Expected Outcomes/Goals Expected Outcomes/Goals 1. PO intake to meet at least 75% of nutritional needs. 2. Wt stability, skin to remain intact, labs to approach WNL.
--- NOTE | 2018-01-25 20:54 | Progress Notes ---
DATE: SUBJECTIVE: The patient was seen and evaluated. The patient's chart reviewed. Psychiatric follow up now covering for Dr. Dhaliwal. He is a 58-year-old male who was initially brought in here, who lives in [facility]. He was extremely agitated and aggressive to staff and I have not been able to redirect him, becoming very psychotic and responding heavily. Today on [id number] evaluation, the patient continues to be extremely irritable, agitated. Nursing staff reported the patient continues to be verbally aggressive and easily agitated. MENTAL STATUS EXAMINATION: Irritable, agitated, responding with severe thought blocking. CURRENT MEDICATIONS: He is on Thorazine 100 mg p.o. b.i.d., clonazepam 0.5 b.i.d. and Seroquel 300 mg b.i.d. ASSESSMENT AND PLAN: The patient is a [id number] with a history of paranoid schizophrenia becoming aggressive, assaultive. We will continue with the current medication regimen as he is still reaching steady state, to continue with target the patient's severe psychotic and aggressive behavior. Overall, we will continue him on collateral baseline information. He can potentially benefit from monotherapy to continue targeting the patient's severe psychotic symptoms. [facility]# [id number]
[2018-01-25] MEDS: Fenofibrate, Micronized 134 mg Cap PO SCH (21:30)
[2018-01-25] MEDS: Atorvastatin Calcium 10 MG TAB PO SCH (21:30)
[2018-01-26] MEDS: INSULIN ASPART SLIDING SCALE 100 UNITS/ML UNIT SUBQ SCH ×4 (06:47→20:54)
[2018-01-26] MEDS: Lactulose 10 Gm/15 mL 30mL UDC PO SCH (09:31)
[2018-01-26] MEDS: Insulin Detemir 100 units/mL 10mL Vial SUBQ SCH ×3 (12:00→22:01)
--- NOTE | 2018-01-26 20:13 | Internal Medicine Prog Note ---
Internal Medicine Subjective - Subjective Service Date: 01/26/18 Patient seen and examined:: with staff Patient is:: awake, in bed, talking Per staff patient has:: no adverse event (HE FEELS WELL) Internal Medicine Objective - Results Result Diagrams: 01/22/18 17:35 01/22/18 17:35 Recent Labs: Laboratory Last Values WBC 7.3 Th/cmm (4.8-10.8) 01/22/18 17:35 RBC 4.90 Mil/cmm (4.30-5.70) 01/22/18 17:35 Hgb 15.5 gm/dL (12-16) 01/22/18 17:35 Hct 45.8 % (41.0-60) 01/22/18 17:35 MCV 93.5 fl (80-99) 01/22/18 17:35 MCH 31.6 pg (26.0-30.0) H 01/22/18 17:35 MCHC Differential 33.8 pg (28.0-36.0) 01/22/18 17:35 RDW 12.3 % (11.5-20.0) 01/22/18 17:35 Plt Count 214 Th/cmm (150-400) 01/22/18 17:35 MPV 7.9 fl 01/22/18 17:35 Neutrophils % 55.2 % (40.0-80.0) 01/22/18 17:35 Lymphocytes % 31.9 % (20.0-50.0) 01/22/18 17:35 Monocytes % 10.4 % (2.0-10.0) H 01/22/18 17:35 Eosinophils % 1.2 % (0.0-5.0) 01/22/18 17:35 Basophils % 1.3 % (0.0-2.0) 01/22/18 17:35 Sodium 130 mEq/L (136-145) L 01/22/18 17:35 Potassium 4.2 mEq/L (3.5-5.1) 01/22/18 17:35 Chloride 103 mEq/L (98-107) 01/22/18 17:35 Carbon Dioxide 21.2 mEq/L (21.0-31.0) 01/22/18 17:35 Anion Gap 10.0 (7.0-16.0) 01/22/18 17:35 BUN 29 mg/dL (7-25) H 01/22/18 17:35 Creatinine 1.8 mg/dL (0.7-1.3) H 01/22/18 17:35 Est GFR ( Amer) 50.4 ml/min (>90) 01/22/18 17:35 Est GFR (Non-Af Amer) 41.7 ml/min 01/22/18 17:35 BUN/Creatinine Ratio 16.1 01/22/18 17:35 Glucose 186 mg/dL (70-105) H 01/22/18 17:35 POC Glucose 99 MG/DL (70 - 105) 01/23/18 17:29 Hemoglobin A1c % 8.1 % (4.0-6.0) H 01/22/18 17:35 Calcium 9.9 mg/dL (8.6-10.3) 01/22/18 17:35 Total Bilirubin 0.3 mg/dL (0.3-1.0) 01/22/18 17:35 AST 16 U/L (13-39) 01/22/18 17:35 ALT 22 U/L (7-52) 01/22/18 17:35 Alkaline Phosphatase 28 U/L (34-104) L 01/22/18 17:35 Total Protein 7.0 gm/dL (6.0-8.3) 01/22/18 17:35 Albumin 3.7 gm/dL (4.2-5.5) L 01/22/18 17:35 Globulin 3.3 gm/dL 01/22/18 17:35 Albumin/Globulin Ratio 1.1 (1.0-1.8) 01/22/18 17:35 Triglycerides 435 mg/dL (<150) H 01/22/18 17:35 Cholesterol 209 mg/dL (<200) H 01/22/18 17:35 LDL Cholesterol Direct 106 mg/dL (75-193) 01/22/18 17:35 HDL Cholesterol 34 mg/dL (23-92) 01/22/18 17:35 TSH 0.66 uIU/ml (0.34-5.60) 01/22/18 17:35 Salicylates < 25.0 mg/L (30.0-100.0) L 01/22/18 17:35 Acetaminophen < 10.0 ug/mL (10.0-30.0) L 01/22/18 17:35 Ethyl Alcohol < 10 mg/dL (0-10) 01/22/18 17:35 RPR NONREACTIVE (NONREACTIVE) 01/22/18 17:35 - Physical Exam Vitals and I&O: Vital Signs Temp 97.7 F 01/26/18 14:00 Pulse 85 01/26/18 14:00 Resp 20 01/26/18 14:00 BP 151/87 01/26/18 14:00 Pulse Ox 96 01/26/18 14:00 Intake & Output 01/26/18 01/26/18 01/27/18 06:59 18:59 06:59 Intake Total 120 Balance 120 Intake: Oral 120 Other: # Voids 3 # Bowel Movements 0 Active Medications: Current Medications Aspirin (Ecotrin) 81 mg PO DAILY CORIE Stop: 03/24/18 08:59 Last Admin: 01/26/18 09:30 Dose: 81 mg Atorvastatin Calcium (Lipitor) 40 mg PO HS [facility] Stop: 03/24/18 20:59 Last Admin: 01/25/18 21:30 Dose: 40 mg Chlorpromazine (Thorazine) 100 mg PO BID CORIE Stop: 03/24/18 08:59 Last Admin: 01/26/18 17:01 Dose: 100 mg Clonazepam (Klonopin) 0.5 mg PO BID [facility] PRN Reason: Protocol Stop: 03/24/18 08:59 Last Admin: 01/26/18 17:01 Dose: 0.5 mg Fenofibrate (Tricor) 134 mg PO HS [facility] Stop: 03/24/18 20:59 Last Admin: 01/25/18 21:30 Dose: 134 mg Insulin Aspart (Novolog Insulin Sliding Scale) 0 units SUBQ ACHS [facility] PRN Reason: Protocol Stop: 03/24/18 07:29 Last Admin: 01/26/18 17:00 Dose: 5 units Insulin Detemir (Levemir Insulin) 30 units SUBQ Q12H CORIE Stop: 03/24/18 10:59 Last Admin: 01/26/18 12:02 Dose: 30 units Lactulose (Cephulac) 30 gm PO DAILY CORIE Stop: 03/24/18 08:59 Last Admin: 01/26/18 09:31 Dose: 30 gm Lisinopril (Zestril) 5 mg PO DAILY CORIE Stop: 03/24/18 16:59 Last Admin: 01/26/18 09:30 Dose: 5 mg Lorazepam (Ativan) 0.5 mg PO Q6HR PRN; Protocol PRN Reason: Agitation Stop: 03/23/18 23:41 Quetiapine Fumarate (Seroquel) 300 mg PO TID CORIE PRN Reason: Protocol Stop: 03/24/18 08:59 Last Admin: 01/26/18 14:29 Dose: 300 mg Zolpidem Tartrate (Ambien) 5 mg PO HS PRN PRN Reason: Insomnia Stop: 03/23/18 23:43 General: demented HEENT: NC/AT, PERRLA, EOMI, anicteric sclerae, throat clear Neck: Supple, No JVD, No thyromegaly, +2 carotid pulse wo bruit, No LAD, + JVD Lungs: CTAB Cardiovascular: RRR, Normal S1, Normal S2, without murmur Abdomen: non-tender, non-distended Neurological: no change Internal Medicine Assmt/Plan - Assessment Assessment: 1.DM. 2.HTN. 3.HYPELIPEDEMIA 4.PSYCHOSIS. - Plan Plan: CONTINUE ON CURRENT MEDICATION AND DIET. Nutritional Asmnt/Malnutr-PDOC - Dietary Evaluation Malnutrition Findings (Please click <Entered> for more info): Nutritional Asmnt/Malnutrition Start: 01/23/18 13: 46 Text: Status: Complete Freq: Document 01/23/18 13:46 BRUNA (Rec: 01/23/18 13:58 [email or web address] Nutritional Asmnt/Malnutrition Patient General Information Nutritional Screening High Risk Diagnosis psychosis Pertinent Medical Hx/Surgical Hx psychosis, HTN, DM, hyperlipidemia Subjective Information Pt seen sitting in hallway, confused, eating lunch at time of visit. By observation, pt consumed 90% of his lunch. Pt got angry when talking about diabetes and blood sugar. Pt stated he has no diabetes. glucose 186 at admitting noted . Current Diet Order/ [facility] Pertinent Medications novolog, cephulac, seroquel Pertinent Labs 01/22 Na 130, BUN 29, Cr 1.8, glucose 186, POC 267 Nutritional Hx/Data Height 1.78 m Height (Calculated Centimeters) 177.8 Current Weight (lbs) 68.039 kg Weight (Calculated Kilograms) 68.0 Weight (Calculated Grams) 43602.9 [place] Body Weight 166 % [place] Body Weight 90 Body Mass Index (BMI) 21.5 Weight Status Approriate GI Symptoms GI Symptoms None Last BM no record Difficult in: None Skin Integrity/Comment: not indicated Estimated Nutritional Goals BEE in Kcals: Using Current wt Calories/Kcals/Kg 25-30 Kcals Calculated 6128-3563 Protein: Using Current wt Protein g/k-1.2 Protein Calculated 68-82 Fluid: ml 1700-2040ml (1ml/kcal) Nutritional Problem 1. Problem Problem altered nutrition related labs Etiology chronic renal suff, hx of DM Signs/Symptoms: BUN 29, Cr 1.8, glucose 186, POC 267 Malnutrition Alert Protein-Calorie Malnutrition N/A Is there a minimum of two criteria No selected? Query Text:Check all the applicable criteria. A minimum of two criteria are recommended for diagnosis of either severe or non-severe malnutrition. Intervention/Recommendation Comments 1. Continue with CCHO-60gm diet as ordered. Monitor accucheck. 2. Monitor PO intake, wt, labs and skin integrity 3. F/U as moderate risk in 3-5 days, 01/26-01/28 Expected Outcomes/Goals Expected Outcomes/Goals 1. PO intake to meet at least 75% of nutritional needs. 2. Wt stability, skin to remain intact, labs to approach WNL.
[2018-01-26] MEDS: Fenofibrate, Micronized 134 mg Cap PO SCH (20:54)
[2018-01-26] MEDS: Atorvastatin Calcium 10 MG TAB PO SCH (20:54)
[2018-01-27] MEDS: INSULIN ASPART SLIDING SCALE 100 UNITS/ML UNIT SUBQ SCH ×3 (06:31→21:28)
[2018-01-27] MEDS: Insulin Detemir 100 units/mL 10mL Vial SUBQ SCH ×2 (09:59→21:15)
[2018-01-27] MEDS: Lactulose 10 Gm/15 mL 30mL UDC PO SCH (10:00)
--- NOTE | 2018-01-27 10:05 | Progress Notes ---
DATE: 01/26/2018 SUBJECTIVE: The patient was seen and evaluated. The patient's chart reviewed. Overnight, the patient continued to present disorganized via [id number] evaluation. When asked the patient how he was doing, the patient talks about ____ there needs to be good air on and then he talks about how in the old days there were different ways of being able to shake hard. ____ better linear conversation becomes ____ agitated. MENTAL STATUS EXAMINATION: Still observed to be disorganized in ____ agitated. ASSESSMENT AND PLAN: A 58-year-old male with a history of paranoid schizophrenia, continues to present ____ disorganized that impaired his ability to maintain a linear conversation ____. We will continue monitoring ____ his medications are currently being ____ without complications. JOB# [id number]
[2018-01-27] MEDS: Fenofibrate, Micronized 134 mg Cap PO SCH (21:29)
--- NOTE | 2018-01-27 21:35 | Progress Notes ---
DATE: 01/27/[address] Dhaliwal. Case was discussed with staff of the patient, reviewed records. This is a 58-year-old male who was admitted on the 01/22/2018 because of aggressive behavior, agitation. He came from [facility] has been extremely agitated with the staff. Unable to follow staff direction, hitting other patients and staff, not taking his medication, very paranoid, angry, irritable. When I talked to him, he was preoccupied to talk about his medication. He believes that he needs to be on Thorazine, which is here, he was already on Thorazine 100 mg twice a day and Klonopin 0.5 mg twice a day, and Seroquel 300 mg 3 times a day with no side effects, no sedation, no nausea and no extrapyramidal symptoms and still unable to follow direction appropriately, but in general, he seems to be a bit calmer. We will continue to work with the patient in group therapy, milieu therapy, and adjust the medications as needed. JOB# [id number]
--- NOTE | 2018-01-27 23:30 | Internal Medicine Prog Note ---
Internal Medicine Subjective - Subjective Service Date: 01/27/18 Patient seen and examined:: without staff Patient is:: awake, in bed, talking Per staff patient has:: no adverse event (HE FEELS WELL) Internal Medicine Objective - Results Result Diagrams: 01/22/18 17:35 01/22/18 17:35 Recent Labs: Laboratory Last Values WBC 7.3 Th/cmm (4.8-10.8) 01/22/18 17:35 RBC 4.90 Mil/cmm (4.30-5.70) 01/22/18 17:35 Hgb 15.5 gm/dL (12-16) 01/22/18 17:35 Hct 45.8 % (41.0-60) 01/22/18 17:35 MCV 93.5 fl (80-99) 01/22/18 17:35 MCH 31.6 pg (26.0-30.0) H 01/22/18 17:35 MCHC Differential 33.8 pg (28.0-36.0) 01/22/18 17:35 RDW 12.3 % (11.5-20.0) 01/22/18 17:35 Plt Count 214 Th/cmm (150-400) 01/22/18 17:35 MPV 7.9 fl 01/22/18 17:35 Neutrophils % 55.2 % (40.0-80.0) 01/22/18 17:35 Lymphocytes % 31.9 % (20.0-50.0) 01/22/18 17:35 Monocytes % 10.4 % (2.0-10.0) H 01/22/18 17:35 Eosinophils % 1.2 % (0.0-5.0) 01/22/18 17:35 Basophils % 1.3 % (0.0-2.0) 01/22/18 17:35 Sodium 130 mEq/L (136-145) L 01/22/18 17:35 Potassium 4.2 mEq/L (3.5-5.1) 01/22/18 17:35 Chloride 103 mEq/L (98-107) 01/22/18 17:35 Carbon Dioxide 21.2 mEq/L (21.0-31.0) 01/22/18 17:35 Anion Gap 10.0 (7.0-16.0) 01/22/18 17:35 BUN 29 mg/dL (7-25) H 01/22/18 17:35 Creatinine 1.8 mg/dL (0.7-1.3) H 01/22/18 17:35 Est GFR ( Amer) 50.4 ml/min (>90) 01/22/18 17:35 Est GFR (Non-Af Amer) 41.7 ml/min 01/22/18 17:35 BUN/Creatinine Ratio 16.1 01/22/18 17:35 Glucose 186 mg/dL (70-105) H 01/22/18 17:35 POC Glucose 99 MG/DL (70 - 105) 01/23/18 17:29 Hemoglobin A1c % 8.1 % (4.0-6.0) H 01/22/18 17:35 Calcium 9.9 mg/dL (8.6-10.3) 01/22/18 17:35 Total Bilirubin 0.3 mg/dL (0.3-1.0) 01/22/18 17:35 AST 16 U/L (13-39) 01/22/18 17:35 ALT 22 U/L (7-52) 01/22/18 17:35 Alkaline Phosphatase 28 U/L (34-104) L 01/22/18 17:35 Total Protein 7.0 gm/dL (6.0-8.3) 01/22/18 17:35 Albumin 3.7 gm/dL (4.2-5.5) L 01/22/18 17:35 Globulin 3.3 gm/dL 01/22/18 17:35 Albumin/Globulin Ratio 1.1 (1.0-1.8) 01/22/18 17:35 Triglycerides 435 mg/dL (<150) H 01/22/18 17:35 Cholesterol 209 mg/dL (<200) H 01/22/18 17:35 LDL Cholesterol Direct 106 mg/dL (75-193) 01/22/18 17:35 HDL Cholesterol 34 mg/dL (23-92) 01/22/18 17:35 TSH 0.66 uIU/ml (0.34-5.60) 01/22/18 17:35 Salicylates < 25.0 mg/L (30.0-100.0) L 01/22/18 17:35 Acetaminophen < 10.0 ug/mL (10.0-30.0) L 01/22/18 17:35 Ethyl Alcohol < 10 mg/dL (0-10) 01/22/18 17:35 RPR NONREACTIVE (NONREACTIVE) 01/22/18 17:35 - Physical Exam Vitals and I&O: Vital Signs Temp 98.1 F 01/27/18 20:10 Pulse 76 01/27/18 20:10 Resp 18 01/27/18 20:10 BP 123/68 01/27/18 20:10 Pulse Ox 94 01/27/18 20:10 Intake & Output 01/27/18 01/27/18 01/28/18 06:59 18:59 06:59 Intake Total 240 240 Balance 240 240 Intake: Oral 240 240 Other: # Voids 1 1 Active Medications: Current Medications Aspirin (Ecotrin) 81 mg PO DAILY CORIE Stop: 03/24/18 08:59 Last Admin: 01/27/18 09:58 Dose: 81 mg Atorvastatin Calcium (Lipitor) 40 mg PO HS [facility] Stop: 03/28/18 20:59 Last Admin: 01/27/18 21:29 Dose: 40 mg Chlorpromazine (Thorazine) 100 mg PO BID CORIE Stop: 03/24/18 08:59 Last Admin: 01/27/18 16:27 Dose: 100 mg Clonazepam (Klonopin) 0.5 mg PO BID CORIE PRN Reason: Protocol Stop: 03/24/18 08:59 Last Admin: 01/27/18 16:27 Dose: 0.5 mg Fenofibrate (Tricor) 134 mg PO HS [facility] Stop: 03/24/18 20:59 Last Admin: 01/27/18 21:29 Dose: 134 mg Insulin Aspart (Novolog Insulin Sliding Scale) 0 units SUBQ ACHS CORIE PRN Reason: Protocol Stop: 03/24/18 07:29 Last Admin: 01/27/18 21:28 Dose: Not Given Insulin Detemir (Levemir Insulin) 30 units SUBQ Q12HR CORIE Stop: 03/28/18 08:59 Last Admin: 01/27/18 21:15 Dose: Not Given Lactulose (Cephulac) 30 gm PO DAILY CORIE Stop: 03/24/18 08:59 Last Admin: 01/27/18 10:00 Dose: 30 gm Lisinopril (Zestril) 5 mg PO DAILY CORIE Stop: 03/24/18 16:59 Last Admin: 01/27/18 10:00 Dose: Not Given Lorazepam (Ativan) 0.5 mg PO Q6HR PRN; Protocol PRN Reason: Agitation Stop: 03/23/18 23:41 Quetiapine Fumarate (Seroquel) 300 mg PO TID CORIE PRN Reason: Protocol Stop: 03/24/18 08:59 Last Admin: 01/27/18 21:30 Dose: 300 mg Zolpidem Tartrate (Ambien) 5 mg PO HS PRN PRN Reason: Insomnia Stop: 03/23/18 23:43 General: demented HEENT: NC/AT, PERRLA, EOMI, anicteric sclerae, throat clear Neck: Supple, No JVD, No thyromegaly, +2 carotid pulse wo bruit, No LAD, + JVD Lungs: CTAB Cardiovascular: RRR, Normal S1, Normal S2, without murmur Abdomen: non-tender, non-distended Neurological: no change Internal Medicine Assmt/Plan - Assessment Assessment: 1.DM. 2.HTN. 3.HYPELIPEDEMIA 4.PSYCHOSIS. - Plan Plan: CONTINUE ON CURRENT MEDICATION AND DIET. Nutritional Asmnt/Malnutr-PDOC - Dietary Evaluation Malnutrition Findings (Please click <Entered> for more info): Nutritional Asmnt/Malnutrition Start: 01/23/18 13: 46 Text: Status: Complete Freq: Document 01/23/18 13:46 BRUNA (Rec: 01/23/18 13:58 [email or web address] Nutritional Asmnt/Malnutrition Patient General Information Nutritional Screening High Risk Diagnosis psychosis Pertinent Medical Hx/Surgical Hx psychosis, HTN, DM, hyperlipidemia Subjective Information Pt seen sitting in hallway, confused, eating lunch at time of visit. By observation, pt consumed 90% of his lunch. Pt got angry when talking about diabetes and blood sugar. Pt stated he has no diabetes. glucose 186 at admitting noted . Current Diet Order/ [facility] Pertinent Medications novolog, cephulac, seroquel Pertinent Labs 01/22 Na 130, BUN 29, Cr 1.8, glucose 186, POC 267 Nutritional Hx/Data Height 1.78 m Height (Calculated Centimeters) 177.8 Current Weight (lbs) 68.039 kg Weight (Calculated Kilograms) 68.0 Weight (Calculated Grams) 43863.9 [place] Body Weight 166 % [place] Body Weight 90 Body Mass Index (BMI) 21.5 Weight Status Approriate GI Symptoms GI Symptoms None Last BM no record Difficult in: None Skin Integrity/Comment: not indicated Estimated Nutritional Goals BEE in Kcals: Using Current wt Calories/Kcals/Kg 25-30 Kcals Calculated 0493-8267 Protein: Using Current wt Protein g/k-1.2 Protein Calculated 68-82 Fluid: ml 1700-2040ml (1ml/kcal) Nutritional Problem 1. Problem Problem altered nutrition related labs Etiology chronic renal suff, hx of DM Signs/Symptoms: BUN 29, Cr 1.8, glucose 186, POC 267 Malnutrition Alert Protein-Calorie Malnutrition N/A Is there a minimum of two criteria No selected? Query Text:Check all the applicable criteria. A minimum of two criteria are recommended for diagnosis of either severe or non-severe malnutrition. Intervention/Recommendation Comments 1. Continue with CCHO-60gm diet as ordered. Monitor accucheck. 2. Monitor PO intake, wt, labs and skin integrity 3. F/U as moderate risk in 3-5 days, 01/26-01/28 Expected Outcomes/Goals Expected Outcomes/Goals 1. PO intake to meet at least 75% of nutritional needs. 2. Wt stability, skin to remain intact, labs to approach WNL.
[2018-01-28] MEDS: INSULIN ASPART SLIDING SCALE 100 UNITS/ML UNIT SUBQ SCH ×5 (06:45→21:16)
[2018-01-28] MEDS: Insulin Detemir 100 units/mL 10mL Vial SUBQ SCH ×2 (08:28→21:16)
[2018-01-28] MEDS: Lactulose 10 Gm/15 mL 30mL UDC PO SCH (08:29)
--- NOTE | 2018-01-28 19:13 | Internal Medicine Prog Note ---
Internal Medicine Subjective - Subjective Service Date: 01/28/18 Patient seen and examined:: with staff Patient is:: awake, in bed, talking Per staff patient has:: no adverse event (HE FEELS WELL) Internal Medicine Objective - Results Result Diagrams: 01/22/18 17:35 01/22/18 17:35 Recent Labs: Laboratory Last Values WBC 7.3 Th/cmm (4.8-10.8) 01/22/18 17:35 RBC 4.90 Mil/cmm (4.30-5.70) 01/22/18 17:35 Hgb 15.5 gm/dL (12-16) 01/22/18 17:35 Hct 45.8 % (41.0-60) 01/22/18 17:35 MCV 93.5 fl (80-99) 01/22/18 17:35 MCH 31.6 pg (26.0-30.0) H 01/22/18 17:35 MCHC Differential 33.8 pg (28.0-36.0) 01/22/18 17:35 RDW 12.3 % (11.5-20.0) 01/22/18 17:35 Plt Count 214 Th/cmm (150-400) 01/22/18 17:35 MPV 7.9 fl 01/22/18 17:35 Neutrophils % 55.2 % (40.0-80.0) 01/22/18 17:35 Lymphocytes % 31.9 % (20.0-50.0) 01/22/18 17:35 Monocytes % 10.4 % (2.0-10.0) H 01/22/18 17:35 Eosinophils % 1.2 % (0.0-5.0) 01/22/18 17:35 Basophils % 1.3 % (0.0-2.0) 01/22/18 17:35 Sodium 130 mEq/L (136-145) L 01/22/18 17:35 Potassium 4.2 mEq/L (3.5-5.1) 01/22/18 17:35 Chloride 103 mEq/L (98-107) 01/22/18 17:35 Carbon Dioxide 21.2 mEq/L (21.0-31.0) 01/22/18 17:35 Anion Gap 10.0 (7.0-16.0) 01/22/18 17:35 BUN 29 mg/dL (7-25) H 01/22/18 17:35 Creatinine 1.8 mg/dL (0.7-1.3) H 01/22/18 17:35 Est GFR ( Amer) 50.4 ml/min (>90) 01/22/18 17:35 Est GFR (Non-Af Amer) 41.7 ml/min 01/22/18 17:35 BUN/Creatinine Ratio 16.1 01/22/18 17:35 Glucose 186 mg/dL (70-105) H 01/22/18 17:35 POC Glucose 99 MG/DL (70 - 105) 01/23/18 17:29 Hemoglobin A1c % 8.1 % (4.0-6.0) H 01/22/18 17:35 Calcium 9.9 mg/dL (8.6-10.3) 01/22/18 17:35 Total Bilirubin 0.3 mg/dL (0.3-1.0) 01/22/18 17:35 AST 16 U/L (13-39) 01/22/18 17:35 ALT 22 U/L (7-52) 01/22/18 17:35 Alkaline Phosphatase 28 U/L (34-104) L 01/22/18 17:35 Total Protein 7.0 gm/dL (6.0-8.3) 01/22/18 17:35 Albumin 3.7 gm/dL (4.2-5.5) L 01/22/18 17:35 Globulin 3.3 gm/dL 01/22/18 17:35 Albumin/Globulin Ratio 1.1 (1.0-1.8) 01/22/18 17:35 Triglycerides 435 mg/dL (<150) H 01/22/18 17:35 Cholesterol 209 mg/dL (<200) H 01/22/18 17:35 LDL Cholesterol Direct 106 mg/dL (75-193) 01/22/18 17:35 HDL Cholesterol 34 mg/dL (23-92) 01/22/18 17:35 TSH 0.66 uIU/ml (0.34-5.60) 01/22/18 17:35 Salicylates < 25.0 mg/L (30.0-100.0) L 01/22/18 17:35 Acetaminophen < 10.0 ug/mL (10.0-30.0) L 01/22/18 17:35 Ethyl Alcohol < 10 mg/dL (0-10) 01/22/18 17:35 RPR NONREACTIVE (NONREACTIVE) 01/22/18 17:35 - Physical Exam Vitals and I&O: Vital Signs Temp 98.1 F 01/27/18 20:10 Pulse 76 01/27/18 20:10 Resp 18 01/28/18 18:49 BP 123/68 01/27/18 20:10 Pulse Ox 94 01/27/18 20:10 Intake & Output 01/28/18 01/28/18 01/29/18 06:59 18:59 06:59 Intake Total 240 Balance 240 Intake: Oral 240 Other: # Voids 1 Active Medications: Current Medications Aspirin (Ecotrin) 81 mg PO DAILY CORIE Stop: 03/24/18 08:59 Last Admin: 01/28/18 08:28 Dose: 81 mg Atorvastatin Calcium (Lipitor) 40 mg PO HS [facility] Stop: 03/28/18 20:59 Last Admin: 01/27/18 21:29 Dose: 40 mg Chlorpromazine (Thorazine) 100 mg PO TID CORIE Stop: 03/29/18 13:59 Last Admin: 01/28/18 14:33 Dose: 100 mg Clonazepam (Klonopin) 0.5 mg PO BID CORIE PRN Reason: Protocol Stop: 03/24/18 08:59 Last Admin: 01/28/18 16:11 Dose: 0.5 mg Fenofibrate (Tricor) 134 mg PO HS [facility] Stop: 03/24/18 20:59 Last Admin: 01/27/18 21:29 Dose: 134 mg Insulin Aspart (Novolog Insulin Sliding Scale) 0 units SUBQ ACHS CORIE PRN Reason: Protocol Stop: 03/24/18 07:29 Last Admin: 01/28/18 16:11 Dose: Not Given Insulin Detemir (Levemir Insulin) 30 units SUBQ Q12HR CORIE Stop: 03/28/18 08:59 Last Admin: 01/28/18 08:28 Dose: Not Given Lactulose (Cephulac) 30 gm PO DAILY CORIE Stop: 03/24/18 08:59 Last Admin: 01/28/18 08:29 Dose: Not Given Lisinopril (Zestril) 5 mg PO DAILY CORIE Stop: 03/24/18 16:59 Last Admin: 01/28/18 08:29 Dose: Not Given Lorazepam (Ativan) 0.5 mg PO Q6HR PRN; Protocol PRN Reason: Agitation Stop: 03/23/18 23:41 Quetiapine Fumarate (Seroquel) 300 mg PO TID CORIE PRN Reason: Protocol Stop: 03/24/18 08:59 Last Admin: 01/28/18 14:33 Dose: 300 mg Zolpidem Tartrate (Ambien) 5 mg PO HS PRN PRN Reason: Insomnia Stop: 03/23/18 23:43 General: demented HEENT: NC/AT, PERRLA, EOMI, anicteric sclerae, throat clear Neck: Supple, No JVD, No thyromegaly, +2 carotid pulse wo bruit, No LAD, + JVD Lungs: CTAB Cardiovascular: RRR, Normal S1, Normal S2, without murmur Abdomen: non-tender, non-distended Neurological: no change Internal Medicine Assmt/Plan - Assessment Assessment: 1.DM. 2.HTN. 3.HYPELIPEDEMIA 4.PSYCHOSIS. - Plan Plan: CONTINUE ON CURRENT MEDICATION AND DIET. Nutritional Asmnt/Malnutr-PDOC - Dietary Evaluation Malnutrition Findings (Please click <Entered> for more info): Nutritional Asmnt/Malnutrition Start: 01/23/18 13: 46 Text: Status: Complete Freq: Document 01/23/18 13:46 BRUNA (Rec: 01/23/18 13:58 [email or web address]) Nutritional Asmnt/Malnutrition Patient General Information Nutritional Screening High Risk Diagnosis psychosis Pertinent Medical Hx/Surgical Hx psychosis, HTN, DM, hyperlipidemia Subjective Information Pt seen sitting in hallway, confused, eating lunch at time of visit. By observation, pt consumed 90% of his lunch. Pt got angry when talking about diabetes and blood sugar. Pt stated he has no diabetes. glucose 186 at admitting noted . [facility] Pertinent Medications novolog, cephulac, seroquel Pertinent Labs 01/22 Na 130, BUN 29, Cr 1.8, glucose 186, POC 267 Nutritional Hx/Data Height 1.78 m Height (Calculated Centimeters) 177.8 Current Weight (lbs) 68.039 kg Weight (Calculated Kilograms) 68.0 Weight (Calculated Grams) 48323.9 [place] Body Weight 166 % [place] Body Weight 90 Body Mass Index (BMI) 21.5 Weight Status Approriate GI Symptoms GI Symptoms None Last BM no record Difficult in: None Skin Integrity/Comment: not indicated Estimated Nutritional Goals BEE in Kcals: Using Current wt Calories/Kcals/Kg 25-30 Kcals Calculated 8799-5792 Protein: Using Current wt Protein g/k-1.2 Protein Calculated 68-82 Fluid: ml 1700-2040ml (1ml/kcal) Nutritional Problem 1. Problem Problem altered nutrition related labs Etiology chronic renal suff, hx of DM Signs/Symptoms: BUN 29, Cr 1.8, glucose 186, POC 267 Malnutrition Alert Protein-Calorie Malnutrition N/A Is there a minimum of two criteria No selected? Query Text:Check all the applicable criteria. A minimum of two criteria are recommended for diagnosis of either severe or non-severe malnutrition. Intervention/Recommendation Comments 1. Continue with CCHO-60gm diet as ordered. Monitor accucheck. 2. Monitor PO intake, wt, labs and skin integrity 3. F/U as moderate risk in 3-5 days, 01/26-01/28 Expected Outcomes/Goals Expected Outcomes/Goals 1. PO intake to meet at least 75% of nutritional needs. 2. Wt stability, skin to remain intact, labs to approach WNL.
[2018-01-28] MEDS: Fenofibrate, Micronized 134 mg Cap PO SCH (21:13)
--- NOTE | 2018-01-28 23:07 | Progress Notes ---
DATE: 01/28/2018 Case was discussed with staff of the patient, reviewed records. The patient continues to isolate himself. He is in his room preoccupied, wanting to be on Thorazine. Though he is on Thorazine, I did explain back to him, he said that he kept repeating himself. Continues to be inappropriate looking disheveled, disorganized, internally preoccupied. Continues to have poor insight. He is compliance with the medication with no side effects, no sedation, no nausea, no extrapyramidal symptoms. I will be increasing his Thorazine to 3 times a day as he reports he used to be on 500 mg a day and that his current dose is not enough so far no side effects. We will continue outpatient in group therapy, milieu therapy, and adjust the medications as needed. JOB# [id number]
[2018-01-29] MEDS: INSULIN ASPART SLIDING SCALE 100 UNITS/ML UNIT SUBQ SCH ×4 (06:37→21:03)
[2018-01-29] MEDS: Lactulose 10 Gm/15 mL 30mL UDC PO SCH (09:19)
[2018-01-29] MEDS: Insulin Detemir 100 units/mL 10mL Vial SUBQ SCH ×2 (09:19→21:04)
--- NOTE | 2018-01-29 19:53 | Internal Medicine Prog Note ---
Internal Medicine Subjective - Subjective Service Date: 01/29/18 Patient seen and examined:: with staff Patient is:: awake, in bed, talking Per staff patient has:: no adverse event (HE FEELS WELL) Internal Medicine Objective - Results Result Diagrams: 01/22/18 17:35 01/22/18 17:35 Recent Labs: Laboratory Last Values WBC 7.3 Th/cmm (4.8-10.8) 01/22/18 17:35 RBC 4.90 Mil/cmm (4.30-5.70) 01/22/18 17:35 Hgb 15.5 gm/dL (12-16) 01/22/18 17:35 Hct 45.8 % (41.0-60) 01/22/18 17:35 MCV 93.5 fl (80-99) 01/22/18 17:35 MCH 31.6 pg (26.0-30.0) H 01/22/18 17:35 MCHC Differential 33.8 pg (28.0-36.0) 01/22/18 17:35 RDW 12.3 % (11.5-20.0) 01/22/18 17:35 Plt Count 214 Th/cmm (150-400) 01/22/18 17:35 MPV 7.9 fl 01/22/18 17:35 Neutrophils % 55.2 % (40.0-80.0) 01/22/18 17:35 Lymphocytes % 31.9 % (20.0-50.0) 01/22/18 17:35 Monocytes % 10.4 % (2.0-10.0) H 01/22/18 17:35 Eosinophils % 1.2 % (0.0-5.0) 01/22/18 17:35 Basophils % 1.3 % (0.0-2.0) 01/22/18 17:35 Sodium 130 mEq/L (136-145) L 01/22/18 17:35 Potassium 4.2 mEq/L (3.5-5.1) 01/22/18 17:35 Chloride 103 mEq/L (98-107) 01/22/18 17:35 Carbon Dioxide 21.2 mEq/L (21.0-31.0) 01/22/18 17:35 Anion Gap 10.0 (7.0-16.0) 01/22/18 17:35 BUN 29 mg/dL (7-25) H 01/22/18 17:35 Creatinine 1.8 mg/dL (0.7-1.3) H 01/22/18 17:35 Est GFR ( Amer) 50.4 ml/min (>90) 01/22/18 17:35 Est GFR (Non-Af Amer) 41.7 ml/min 01/22/18 17:35 BUN/Creatinine Ratio 16.1 01/22/18 17:35 Glucose 186 mg/dL (70-105) H 01/22/18 17:35 POC Glucose 99 MG/DL (70 - 105) 01/23/18 17:29 Hemoglobin A1c % 8.1 % (4.0-6.0) H 01/22/18 17:35 Calcium 9.9 mg/dL (8.6-10.3) 01/22/18 17:35 Total Bilirubin 0.3 mg/dL (0.3-1.0) 01/22/18 17:35 AST 16 U/L (13-39) 01/22/18 17:35 ALT 22 U/L (7-52) 01/22/18 17:35 Alkaline Phosphatase 28 U/L (34-104) L 01/22/18 17:35 Total Protein 7.0 gm/dL (6.0-8.3) 01/22/18 17:35 Albumin 3.7 gm/dL (4.2-5.5) L 01/22/18 17:35 Globulin 3.3 gm/dL 01/22/18 17:35 Albumin/Globulin Ratio 1.1 (1.0-1.8) 01/22/18 17:35 Triglycerides 435 mg/dL (<150) H 01/22/18 17:35 Cholesterol 209 mg/dL (<200) H 01/22/18 17:35 LDL Cholesterol Direct 106 mg/dL (75-193) 01/22/18 17:35 HDL Cholesterol 34 mg/dL (23-92) 01/22/18 17:35 TSH 0.66 uIU/ml (0.34-5.60) 01/22/18 17:35 Salicylates < 25.0 mg/L (30.0-100.0) L 01/22/18 17:35 Acetaminophen < 10.0 ug/mL (10.0-30.0) L 01/22/18 17:35 Ethyl Alcohol < 10 mg/dL (0-10) 01/22/18 17:35 RPR NONREACTIVE (NONREACTIVE) 01/22/18 17:35 - Physical Exam Vitals and I&O: Vital Signs Temp 97.5 F 01/29/18 14:45 Pulse 113 01/29/18 14:45 Resp 20 01/29/18 19:13 BP 136/93 01/29/18 14:45 Pulse Ox 99 01/29/18 14:45 Intake & Output 01/29/18 01/29/18 01/30/18 06:59 18:59 06:59 Intake Total 200 1200 Balance 200 1200 Intake: Oral 200 1200 Other: # Voids 3 3 # Bowel Movements 0 Active Medications: Current Medications Aspirin (Ecotrin) 81 mg PO DAILY CORIE Stop: 03/24/18 08:59 Last Admin: 01/29/18 09:19 Dose: Not Given Atorvastatin Calcium (Lipitor) 40 mg PO HS [facility]IE Stop: 03/28/18 20:59 Last Admin: 01/28/18 21:13 Dose: Not Given Chlorpromazine (Thorazine) 100 mg PO TID CORIE Stop: 03/29/18 13:59 Last Admin: 01/29/18 13:04 Dose: 100 mg Clonazepam (Klonopin) 0.5 mg PO BID CORIE PRN Reason: Protocol Stop: 03/24/18 08:59 Last Admin: 01/29/18 16:34 Dose: Not Given Fenofibrate (Tricor) 134 mg PO HS [facility] Stop: 03/24/18 20:59 Last Admin: 01/28/18 21:13 Dose: Not Given Insulin Aspart (Novolog Insulin Sliding Scale) 0 units SUBQ ACHS CORIE PRN Reason: Protocol Stop: 03/24/18 07:29 Last Admin: 01/29/18 16:34 Dose: Not Given Insulin Detemir (Levemir Insulin) 30 units SUBQ Q12HR CORIE Stop: 03/28/18 08:59 Last Admin: 01/29/18 09:19 Dose: Not Given Lactulose (Cephulac) 30 gm PO DAILY CORIE Stop: 03/24/18 08:59 Last Admin: 01/29/18 09:19 Dose: Not Given Lisinopril (Zestril) 5 mg PO DAILY CORIE Stop: 03/24/18 16:59 Last Admin: 01/29/18 09:19 Dose: Not Given Lorazepam (Ativan) 0.5 mg PO Q6HR PRN; Protocol PRN Reason: Agitation Stop: 03/23/18 23:41 Quetiapine Fumarate (Seroquel) 300 mg PO TID CORIE PRN Reason: Protocol Stop: 03/24/18 08:59 Last Admin: 01/29/18 12:59 Dose: Not Given Zolpidem Tartrate (Ambien) 5 mg PO HS PRN PRN Reason: Insomnia Stop: 03/23/18 23:43 General: demented HEENT: NC/AT, PERRLA, EOMI, anicteric sclerae, throat clear Neck: Supple, No JVD, No thyromegaly, +2 carotid pulse wo bruit, No LAD, + JVD Lungs: CTAB Cardiovascular: RRR, Normal S1, Normal S2, without murmur Abdomen: non-tender, non-distended Neurological: no change Internal Medicine Assmt/Plan - Assessment Assessment: 1.DM. 2.HTN. 3.HYPELIPEDEMIA 4.PSYCHOSIS. - Plan Plan: CONTINUE ON CURRENT MEDICATION AND DIET. Nutritional Asmnt/Malnutr-PDOC - Dietary Evaluation Malnutrition Findings (Please click <Entered> for more info): Nutritional Asmnt/Malnutrition Start: 01/23/18 13: 46 Text: Status: Complete Freq: Document 01/23/18 13:46 LCBRUNAG (Rec: 01/23/18 13:58 [email or web address] Nutritional Asmnt/Malnutrition Patient General Information Nutritional Screening High Risk Diagnosis psychosis Pertinent Medical Hx/Surgical Hx psychosis, HTN, DM, hyperlipidemia Subjective Information Pt seen sitting in hallway, confused, eating lunch at time of visit. By observation, pt consumed 90% of his lunch. Pt got angry when talking about diabetes and blood sugar. Pt stated he has no diabetes. glucose 186 at admitting noted . Current Diet [facility]/ [facility] Pertinent Medications novolog, cephulac, seroquel Pertinent Labs 01/22 Na 130, BUN 29, Cr 1.8, glucose 186, POC 267 Nutritional Hx/Data Height 1.78 m Height (Calculated Centimeters) 177.8 Current Weight (lbs) 68.039 kg Weight (Calculated Kilograms) 68.0 Weight (Calculated Grams) 47286.9 [place] Body Weight 166 % [place] Body Weight 90 Body Mass Index (BMI) 21.5 Weight Status Approriate GI Symptoms GI Symptoms None Last BM no record Difficult in: None Skin Integrity/Comment: not indicated Estimated Nutritional Goals BEE in Kcals: Using Current wt Calories/Kcals/Kg 25-30 Kcals Calculated 9206-8530 Protein: Using Current wt Protein g/k-1.2 Protein Calculated 68-82 Fluid: ml 1700-2040ml (1ml/kcal) Nutritional Problem 1. Problem Problem altered nutrition related labs Etiology chronic renal suff, hx of DM Signs/Symptoms: BUN 29, Cr 1.8, glucose 186, POC 267 Malnutrition Alert Protein-Calorie Malnutrition N/A Is there a minimum of two criteria No selected? Query Text:Check all the applicable criteria. A minimum of two criteria are recommended for diagnosis of either severe or non-severe malnutrition. Intervention/Recommendation Comments 1. Continue with [facility] diet as ordered. Monitor accucheck. 2. Monitor PO intake, wt, labs and skin integrity 3. F/U as moderate risk in 3-5 days, 01/26-01/28 Expected Outcomes/Goals Expected Outcomes/Goals 1. PO intake to meet at least 75% of nutritional needs. 2. Wt stability, skin to remain intact, labs to approach WNL.
[2018-01-29] MEDS: Fenofibrate, Micronized 134 mg Cap PO SCH (21:23)
--- NOTE | 2018-01-30 00:50 | Progress Notes ---
DATE: Chart reviewed and the patient interviewed. Also discussed the patient's condition with the staff and reviewed records and labs. The patient continued to be easily agitated and easily irritable. He also is still paranoid. The patient also is still reluctant to take medications and seems to be selective when tried to take the medications. He needs prompts and instructions when taking medications. Otherwise, the patient denies any side effect of medications. ASSESSMENT: The patient is still agitated and in irritable mood. TREATMENT PLAN: We will continue Thorazine 100 mg 3 times a day and we will add Klonopin 1 mg twice a day and will continue to follow up closely. JOB# [id number]
[2018-01-30] MEDS: INSULIN ASPART SLIDING SCALE 100 UNITS/ML UNIT SUBQ SCH ×4 (06:49→21:02)
[2018-01-30] MEDS: Lactulose 10 Gm/15 mL 30mL UDC PO SCH (10:00)
[2018-01-30] MEDS: Insulin Detemir 100 units/mL 10mL Vial SUBQ SCH ×2 (10:00→21:03)
[2018-01-30] MEDS: Fenofibrate, Micronized 134 mg Cap PO SCH (21:02)
--- NOTE | 2018-01-31 00:13 | Internal Medicine Prog Note ---
Internal Medicine Subjective - Subjective Service Date: 01/30/18 Patient is:: awake, in bed, talking Per staff patient has:: no adverse event (HE FEELS WELL) Internal Medicine Objective - Results Result Diagrams: 01/22/18 17:35 01/22/18 17:35 Recent Labs: Laboratory Last Values WBC 7.3 Th/cmm (4.8-10.8) 01/22/18 17:35 RBC 4.90 Mil/cmm (4.30-5.70) 01/22/18 17:35 Hgb 15.5 gm/dL (12-16) 01/22/18 17:35 Hct 45.8 % (41.0-60) 01/22/18 17:35 MCV 93.5 fl (80-99) 01/22/18 17:35 MCH 31.6 pg (26.0-30.0) H 01/22/18 17:35 MCHC Differential 33.8 pg (28.0-36.0) 01/22/18 17:35 RDW 12.3 % (11.5-20.0) 01/22/18 17:35 Plt Count 214 Th/cmm (150-400) 01/22/18 17:35 MPV 7.9 fl 01/22/18 17:35 Neutrophils % 55.2 % (40.0-80.0) 01/22/18 17:35 Lymphocytes % 31.9 % (20.0-50.0) 01/22/18 17:35 Monocytes % 10.4 % (2.0-10.0) H 01/22/18 17:35 Eosinophils % 1.2 % (0.0-5.0) 01/22/18 17:35 Basophils % 1.3 % (0.0-2.0) 01/22/18 17:35 Sodium 130 mEq/L (136-145) L 01/22/18 17:35 Potassium 4.2 mEq/L (3.5-5.1) 01/22/18 17:35 Chloride 103 mEq/L (98-107) 01/22/18 17:35 Carbon Dioxide 21.2 mEq/L (21.0-31.0) 01/22/18 17:35 Anion Gap 10.0 (7.0-16.0) 01/22/18 17:35 BUN 29 mg/dL (7-25) H 01/22/18 17:35 Creatinine 1.8 mg/dL (0.7-1.3) H 01/22/18 17:35 Est GFR ( Amer) 50.4 ml/min (>90) 01/22/18 17:35 Est GFR (Non-Af Amer) 41.7 ml/min 01/22/18 17:35 BUN/Creatinine Ratio 16.1 01/22/18 17:35 Glucose 186 mg/dL (70-105) H 01/22/18 17:35 POC Glucose 99 MG/DL (70 - 105) 01/23/18 17:29 Hemoglobin A1c % 8.1 % (4.0-6.0) H 01/22/18 17:35 Calcium 9.9 mg/dL (8.6-10.3) 01/22/18 17:35 Total Bilirubin 0.3 mg/dL (0.3-1.0) 01/22/18 17:35 AST 16 U/L (13-39) 01/22/18 17:35 ALT 22 U/L (7-52) 01/22/18 17:35 Alkaline Phosphatase 28 U/L (34-104) L 01/22/18 17:35 Total Protein 7.0 gm/dL (6.0-8.3) 01/22/18 17:35 Albumin 3.7 gm/dL (4.2-5.5) L 01/22/18 17:35 Globulin 3.3 gm/dL 01/22/18 17:35 Albumin/Globulin Ratio 1.1 (1.0-1.8) 01/22/18 17:35 Triglycerides 435 mg/dL (<150) H 01/22/18 17:35 Cholesterol 209 mg/dL (<200) H 01/22/18 17:35 LDL Cholesterol Direct 106 mg/dL (75-193) 01/22/18 17:35 HDL Cholesterol 34 mg/dL (23-92) 01/22/18 17:35 TSH 0.66 uIU/ml (0.34-5.60) 01/22/18 17:35 Salicylates < 25.0 mg/L (30.0-100.0) L 01/22/18 17:35 Acetaminophen < 10.0 ug/mL (10.0-30.0) L 01/22/18 17:35 Ethyl Alcohol < 10 mg/dL (0-10) 01/22/18 17:35 RPR NONREACTIVE (NONREACTIVE) 01/22/18 17:35 - Physical Exam Vitals and I&O: Vital Signs Temp 97.8 F 01/30/18 21:32 Pulse 99 01/30/18 21:32 Resp 20 01/30/18 21:32 BP 120/74 01/30/18 21:32 Pulse Ox 98 01/30/18 21:32 Intake & Output 01/30/18 01/30/18 01/31/18 06:59 18:59 06:59 Intake Total 480 1100 420 Balance 480 1100 420 Intake: Oral 480 1100 420 Other: # Voids 1 5 1 # Bowel Movements 0 Active Medications: Current Medications Aspirin (Ecotrin) 81 mg PO DAILY [facility] Stop: 03/24/18 08:59 Last Admin: 01/30/18 10:00 Dose: Not Given Atorvastatin Calcium (Lipitor) 40 mg PO HS [facility] Stop: 03/28/18 20:59 Last Admin: 01/30/18 21:02 Dose: Not Given Chlorpromazine (Thorazine) 100 mg PO TID [facility] Stop: 03/29/18 13:59 Last Admin: 01/30/18 21:02 Dose: 100 mg Clonazepam (Klonopin) 0.5 mg PO BID [facility] PRN Reason: Protocol Stop: 03/24/18 08:59 Last Admin: 01/30/18 17:12 Dose: Not Given Fenofibrate (Tricor) 134 mg PO HS [facility] Stop: 03/24/18 20:59 Last Admin: 01/30/18 21:02 Dose: Not Given Insulin Aspart (Novolog Insulin Sliding Scale) 0 units SUBQ ACHS [facility] PRN Reason: Protocol Stop: 03/24/18 07:29 Last Admin: 01/30/18 21:02 Dose: Not Given Insulin Detemir (Levemir Insulin) 30 units SUBQ Q12HR [facility] Stop: 03/28/18 08:59 Last Admin: 01/30/18 21:03 Dose: Not Given Lactulose (Cephulac) 30 gm PO DAILY [facility] Stop: 03/24/18 08:59 Last Admin: 01/30/18 10:00 Dose: Not Given Lisinopril (Zestril) 5 mg PO DAILY [facility] Stop: 03/24/18 16:59 Last Admin: 01/30/18 10:00 Dose: Not Given Lorazepam (Ativan) 0.5 mg PO Q6HR PRN; Protocol PRN Reason: Agitation Stop: 03/23/18 23:41 Quetiapine Fumarate (Seroquel) 300 mg PO TID [facility] PRN Reason: Protocol Stop: 03/24/18 08:59 Last Admin: 01/30/18 21:03 Dose: Not Given Zolpidem Tartrate (Ambien) 5 mg PO HS PRN PRN Reason: Insomnia Stop: 03/23/18 23:43 General: demented HEENT: NC/AT, PERRLA, EOMI, anicteric sclerae, throat clear Neck: Supple, No JVD, No thyromegaly, +2 carotid pulse wo bruit, No LAD, + JVD Lungs: CTAB Cardiovascular: RRR, Normal S1, Normal S2, without murmur Abdomen: non-tender, non-distended Neurological: no change Internal Medicine Assmt/Plan - Assessment Assessment: 1.DM. 2.HTN. 3.HYPELIPEDEMIA 4.PSYCHOSIS. - Plan Plan: CONTINUE ON CURRENT MEDICATION AND DIET. Nutritional Asmnt/Malnutr-PDOC - Dietary Evaluation Malnutrition Findings (Please click <Entered> for more info): Nutritional Asmnt/Malnutrition Start: 01/23/18 13: 46 Text: Status: Complete Freq: Document 01/23/18 13:46 BRUNA (Rec: 01/23/18 13:58 [email or web address] Nutritional Asmnt/Malnutrition Patient General Information Nutritional Screening High Risk Diagnosis psychosis Pertinent Medical Hx/Surgical Hx psychosis, HTN, DM, hyperlipidemia Subjective Information Pt seen sitting in hallway, confused, eating lunch at time of visit. By observation, pt consumed 90% of his lunch. Pt got angry when talking about diabetes and blood sugar. Pt stated he has no diabetes. glucose 186 at admitting noted . [facility] Pertinent Medications novolog, cephulac, seroquel Pertinent Labs 01/22 Na 130, BUN 29, Cr 1.8, glucose 186, POC 267 Nutritional Hx/Data Height 1.78 m Height (Calculated Centimeters) 177.8 Current Weight (lbs) 68.039 kg Weight (Calculated Kilograms) 68.0 Weight (Calculated Grams) 94420.9 [place] Body Weight 166 % [place] Body Weight 90 Body Mass Index (BMI) 21.5 Weight Status Approriate GI Symptoms GI Symptoms None Last BM no record Difficult in: None Skin Integrity/Comment: not indicated Estimated Nutritional Goals BEE in Kcals: Using Current wt Calories/Kcals/Kg 25-30 Kcals Calculated 8326-0103 Protein: Using Current wt Protein g/k-1.2 Protein Calculated 68-82 Fluid: ml 1700-2040ml (1ml/kcal) Nutritional Problem 1. Problem Problem altered nutrition related labs Etiology chronic renal suff, hx of DM Signs/Symptoms: BUN 29, Cr 1.8, glucose 186, POC 267 Malnutrition Alert Protein-Calorie Malnutrition N/A Is there a minimum of two criteria No selected? Query Text:Check all the applicable criteria. A minimum of two criteria are recommended for diagnosis of either severe or non-severe malnutrition. Intervention/Recommendation Comments 1. Continue with CCHO-60gm diet as ordered. Monitor accucheck. 2. Monitor PO intake, wt, labs and skin integrity 3. F/U as moderate risk in 3-5 days, 01/26-01/28 Expected Outcomes/Goals Expected Outcomes/Goals 1. PO intake to meet at least 75% of nutritional needs. 2. Wt stability, skin to remain intact, labs to approach WNL.
[2018-01-31] MEDS: INSULIN ASPART SLIDING SCALE 100 UNITS/ML UNIT SUBQ SCH ×4 (06:59→20:29)
[2018-01-31] MEDS: Insulin Detemir 100 units/mL 10mL Vial SUBQ SCH ×3 (09:02→20:30)
[2018-01-31] MEDS: Lactulose 10 Gm/15 mL 30mL UDC PO SCH ×2 (10:01→10:22)
--- NOTE | 2018-01-31 19:16 | Internal Medicine Prog Note ---
Internal Medicine Subjective - Subjective Service Date: 01/31/18 Patient seen and examined:: with staff Patient is:: awake, in bed, talking Per staff patient has:: no adverse event (HE FEELS WELL) Internal Medicine Objective - Results Result Diagrams: 01/22/18 17:35 01/22/18 17:35 Recent Labs: Laboratory Last Values WBC 7.3 Th/cmm (4.8-10.8) 01/22/18 17:35 RBC 4.90 Mil/cmm (4.30-5.70) 01/22/18 17:35 Hgb 15.5 gm/dL (12-16) 01/22/18 17:35 Hct 45.8 % (41.0-60) 01/22/18 17:35 MCV 93.5 fl (80-99) 01/22/18 17:35 MCH 31.6 pg (26.0-30.0) H 01/22/18 17:35 MCHC Differential 33.8 pg (28.0-36.0) 01/22/18 17:35 RDW 12.3 % (11.5-20.0) 01/22/18 17:35 Plt Count 214 Th/cmm (150-400) 01/22/18 17:35 MPV 7.9 fl 01/22/18 17:35 Neutrophils % 55.2 % (40.0-80.0) 01/22/18 17:35 Lymphocytes % 31.9 % (20.0-50.0) 01/22/18 17:35 Monocytes % 10.4 % (2.0-10.0) H 01/22/18 17:35 Eosinophils % 1.2 % (0.0-5.0) 01/22/18 17:35 Basophils % 1.3 % (0.0-2.0) 01/22/18 17:35 Sodium 130 mEq/L (136-145) L 01/22/18 17:35 Potassium 4.2 mEq/L (3.5-5.1) 01/22/18 17:35 Chloride 103 mEq/L (98-107) 01/22/18 17:35 Carbon Dioxide 21.2 mEq/L (21.0-31.0) 01/22/18 17:35 Anion Gap 10.0 (7.0-16.0) 01/22/18 17:35 BUN 29 mg/dL (7-25) H 01/22/18 17:35 Creatinine 1.8 mg/dL (0.7-1.3) H 01/22/18 17:35 Est GFR ( Amer) 50.4 ml/min (>90) 01/22/18 17:35 Est GFR (Non-Af Amer) 41.7 ml/min 01/22/18 17:35 BUN/Creatinine Ratio 16.1 01/22/18 17:35 Glucose 186 mg/dL (70-105) H 01/22/18 17:35 POC Glucose 99 MG/DL (70 - 105) 01/23/18 17:29 Hemoglobin A1c % 8.1 % (4.0-6.0) H 01/22/18 17:35 Calcium 9.9 mg/dL (8.6-10.3) 01/22/18 17:35 Total Bilirubin 0.3 mg/dL (0.3-1.0) 01/22/18 17:35 AST 16 U/L (13-39) 01/22/18 17:35 ALT 22 U/L (7-52) 01/22/18 17:35 Alkaline Phosphatase 28 U/L (34-104) L 01/22/18 17:35 Total Protein 7.0 gm/dL (6.0-8.3) 01/22/18 17:35 Albumin 3.7 gm/dL (4.2-5.5) L 01/22/18 17:35 Globulin 3.3 gm/dL 01/22/18 17:35 Albumin/Globulin Ratio 1.1 (1.0-1.8) 01/22/18 17:35 Triglycerides 435 mg/dL (<150) H 01/22/18 17:35 Cholesterol 209 mg/dL (<200) H 01/22/18 17:35 LDL Cholesterol Direct 106 mg/dL (75-193) 01/22/18 17:35 HDL Cholesterol 34 mg/dL (23-92) 01/22/18 17:35 TSH 0.66 uIU/ml (0.34-5.60) 01/22/18 17:35 Salicylates < 25.0 mg/L (30.0-100.0) L 01/22/18 17:35 Acetaminophen < 10.0 ug/mL (10.0-30.0) L 01/22/18 17:35 Ethyl Alcohol < 10 mg/dL (0-10) 01/22/18 17:35 RPR NONREACTIVE (NONREACTIVE) 01/22/18 17:35 - Physical Exam Vitals and I&O: Vital Signs Temp 98.3 F 01/31/18 14:00 Pulse 99 01/31/18 14:00 Resp 20 01/31/18 14:00 BP 166/96 01/31/18 14:00 Pulse Ox 98 01/31/18 14:00 Intake & Output 01/31/18 01/31/18 02/01/18 06:59 18:59 06:59 Intake Total 740 1100 Balance 740 1100 Intake: Oral 740 1100 Other: # Voids 1 3 # Bowel Movements 0 Active Medications: Current Medications Aspirin (Ecotrin) 81 mg PO DAILY [facility] Stop: 03/24/18 08:59 Last Admin: 01/31/18 10:25 Dose: Not Given Atorvastatin Calcium (Lipitor) 40 mg PO HS [facility] Stop: 03/28/18 20:59 Last Admin: 01/30/18 21:02 Dose: Not Given Chlorpromazine (Thorazine) 100 mg PO TID [facility] Stop: 03/29/18 13:59 Last Admin: 01/31/18 14:21 Dose: 100 mg Clonazepam (Klonopin) 0.5 mg PO BID [facility] PRN Reason: Protocol Stop: 03/24/18 08:59 Last Admin: 01/31/18 17:40 Dose: Not Given Fenofibrate (Tricor) 134 mg PO HS [facility] Stop: 03/24/18 20:59 Last Admin: 01/30/18 21:02 Dose: Not Given Insulin Aspart (Novolog Insulin Sliding Scale) 0 units SUBQ ACHS [facility] PRN Reason: Protocol Stop: 03/24/18 07:29 Last Admin: 01/31/18 17:40 Dose: Not Given Insulin Detemir (Levemir Insulin) 30 units SUBQ Q12HR [facility] Stop: 03/28/18 08:59 Last Admin: 01/31/18 10:23 Dose: Not Given Lactulose (Cephulac) 30 gm PO DAILY [facility] Stop: 03/24/18 08:59 Last Admin: 01/31/18 10:22 Dose: Not Given Lisinopril (Zestril) 5 mg PO DAILY [facility] Stop: 03/24/18 16:59 Last Admin: 01/31/18 10:22 Dose: Not Given Lorazepam (Ativan) 0.5 mg PO Q6HR PRN; Protocol PRN Reason: Agitation Stop: 03/23/18 23:41 Quetiapine Fumarate (Seroquel) 300 mg PO TID [facility] PRN Reason: Protocol Stop: 03/24/18 08:59 Last Admin: 01/31/18 14:22 Dose: Not Given Zolpidem Tartrate (Ambien) 5 mg PO HS PRN PRN Reason: Insomnia Stop: 03/23/18 23:43 General: demented HEENT: NC/AT, PERRLA, EOMI, anicteric sclerae, throat clear Neck: Supple, No JVD, No thyromegaly, +2 carotid pulse wo bruit, No LAD, + JVD Lungs: CTAB Cardiovascular: RRR, Normal S1, Normal S2, without murmur Abdomen: non-tender, non-distended Neurological: no change Internal Medicine Assmt/Plan - Assessment Assessment: 1.DM. 2.HTN. 3.HYPELIPEDEMIA 4.PSYCHOSIS. - Plan Plan: CONTINUE ON CURRENT MEDICATION AND DIET. Nutritional Asmnt/Malnutr-PDOC - Dietary Evaluation Malnutrition Findings (Please click <Entered> for more info): Nutritional Asmnt/Malnutrition Start: 01/23/18 13: 46 Text: Status: Complete Freq: Document 01/23/18 13:46 LCHENG (Rec: 01/23/18 13:58 [email or web address] Nutritional Asmnt/Malnutrition Patient General Information Nutritional Screening High Risk Diagnosis psychosis Pertinent Medical Hx/Surgical Hx psychosis, HTN, DM, hyperlipidemia Subjective Information Pt seen sitting in hallway, confused, eating lunch at time of visit. By observation, pt consumed 90% of his lunch. Pt got angry when talking about diabetes and blood sugar. Pt stated he has no diabetes. glucose 186 at admitting noted . [facility] Pertinent Medications novolog, cephulac, seroquel Pertinent Labs 01/22 Na 130, BUN 29, Cr 1.8, glucose 186, POC 267 Nutritional Hx/Data Height 1.78 m Height (Calculated Centimeters) 177.8 Current Weight (lbs) 68.039 kg Weight (Calculated Kilograms) 68.0 Weight (Calculated Grams) 79197.9 [place] Body Weight 166 % [place] Body Weight 90 Body Mass Index (BMI) 21.5 Weight Status Approriate GI Symptoms GI Symptoms None Last BM no record Difficult in: None Skin Integrity/Comment: not indicated Estimated Nutritional Goals BEE in Kcals: Using Current wt Calories/Kcals/Kg 25-30 Kcals Calculated 9609-5406 Protein: Using Current wt Protein g/k-1.2 Protein Calculated 68-82 Fluid: ml 1700-2040ml (1ml/kcal) Nutritional Problem 1. Problem Problem altered nutrition related labs Etiology chronic renal suff, hx of DM Signs/Symptoms: BUN 29, Cr 1.8, glucose 186, POC 267 Malnutrition Alert Protein-Calorie Malnutrition N/A Is there a minimum of two criteria No selected? Query Text:Check all the applicable criteria. A minimum of two criteria are recommended for diagnosis of either severe or non-severe malnutrition. Intervention/Recommendation Comments 1. Continue with CCHO-60gm diet as ordered. Monitor accucheck. 2. Monitor PO intake, wt, labs and skin integrity 3. F/U as moderate risk in 3-5 days, 01/26-01/28 Expected Outcomes/Goals Expected Outcomes/Goals 1. PO intake to meet at least 75% of nutritional needs. 2. Wt stability, skin to remain intact, labs to approach WNL.
[2018-01-31] MEDS: Fenofibrate, Micronized 134 mg Cap PO SCH (20:29)
[2018-02-01] MEDS: INSULIN ASPART SLIDING SCALE 100 UNITS/ML UNIT SUBQ SCH ×4 (06:45→20:41)
[2018-02-01] MEDS: Insulin Detemir 100 units/mL 10mL Vial SUBQ SCH ×2 (09:23→20:41)
[2018-02-01] MEDS: Lactulose 10 Gm/15 mL 30mL UDC PO SCH (09:23)
--- NOTE | 2018-02-01 14:14 | General Progress Note ---
Subjective - Review of Systems Service Date: 02/01/18 Subjective: awake and alert no distress Objective - Results Result Diagrams: 01/22/18 17:35 01/22/18 17:35 Recent Labs: Laboratory Last Values WBC 7.3 Th/cmm (4.8-10.8) 01/22/18 17:35 RBC 4.90 Mil/cmm (4.30-5.70) 01/22/18 17:35 Hgb 15.5 gm/dL (12-16) 01/22/18 17:35 Hct 45.8 % (41.0-60) 01/22/18 17:35 MCV 93.5 fl (80-99) 01/22/18 17:35 MCH 31.6 pg (26.0-30.0) H 01/22/18 17:35 MCHC Differential 33.8 pg (28.0-36.0) 01/22/18 17:35 RDW 12.3 % (11.5-20.0) 01/22/18 17:35 Plt Count 214 Th/cmm (150-400) 01/22/18 17:35 MPV 7.9 fl 01/22/18 17:35 Neutrophils % 55.2 % (40.0-80.0) 01/22/18 17:35 Lymphocytes % 31.9 % (20.0-50.0) 01/22/18 17:35 Monocytes % 10.4 % (2.0-10.0) H 01/22/18 17:35 Eosinophils % 1.2 % (0.0-5.0) 01/22/18 17:35 Basophils % 1.3 % (0.0-2.0) 01/22/18 17:35 Sodium 130 mEq/L (136-145) L 01/22/18 17:35 Potassium 4.2 mEq/L (3.5-5.1) 01/22/18 17:35 Chloride 103 mEq/L (98-107) 01/22/18 17:35 Carbon Dioxide 21.2 mEq/L (21.0-31.0) 01/22/18 17:35 Anion Gap 10.0 (7.0-16.0) 01/22/18 17:35 BUN 29 mg/dL (7-25) H 03/21/18 17:35 Creatinine 1.8 mg/dL (0.7-1.3) H 01/22/18 17:35 Est GFR ( Amer) 50.4 ml/min (>90) 01/22/18 17:35 Est GFR (Non-Af Amer) 41.7 ml/min 01/22/18 17:35 BUN/Creatinine Ratio 16.1 01/22/18 17:35 Glucose 186 mg/dL (70-105) H 01/22/18 17:35 POC Glucose 99 MG/DL (70 - 105) 01/23/18 17:29 Hemoglobin A1c % 8.1 % (4.0-6.0) H 01/22/18 17:35 Calcium 9.9 mg/dL (8.6-10.3) 01/22/18 17:35 Total Bilirubin 0.3 mg/dL (0.3-1.0) 01/22/18 17:35 AST 16 U/L (13-39) 01/22/18 17:35 ALT 22 U/L (7-52) 01/22/18 17:35 Alkaline Phosphatase 28 U/L (34-104) L 01/22/18 17:35 Total Protein 7.0 gm/dL (6.0-8.3) 01/22/18 17:35 Albumin 3.7 gm/dL (4.2-5.5) L 01/22/18 17:35 Globulin 3.3 gm/dL 01/22/18 17:35 Albumin/Globulin Ratio 1.1 (1.0-1.8) 01/22/18 17:35 Triglycerides 435 mg/dL (<150) H 01/22/18 17:35 Cholesterol 209 mg/dL (<200) H 01/22/18 17:35 LDL Cholesterol Direct 106 mg/dL (75-193) 01/22/18 17:35 HDL Cholesterol 34 mg/dL (23-92) 01/22/18 17:35 TSH 0.66 uIU/ml (0.34-5.60) 01/22/18 17:35 Salicylates < 25.0 mg/L (30.0-100.0) L 01/22/18 17:35 Acetaminophen < 10.0 ug/mL (10.0-30.0) L 01/22/18 17:35 Ethyl Alcohol < 10 mg/dL (0-10) 01/22/18 17:35 RPR NONREACTIVE (NONREACTIVE) 01/22/18 17:35 - Physical Exam Vitals and I&O: Vital Signs Temp 97.5 F 01/31/18 20:00 Pulse 70 01/31/18 20:00 Resp 20 02/01/18 08:00 BP 135/80 01/31/18 20:00 Pulse Ox 97 01/31/18 20:00 Intake & Output 01/31/18 02/01/18 02/01/18 18:59 06:59 18:59 Intake Total 1100 480 Balance 1100 480 Intake: Oral 1100 480 Other: # Voids 3 2 # Bowel Movements 0 Active Medications: Current Medications Aspirin (Ecotrin) 81 mg PO DAILY [facility] Stop: 03/24/18 08:59 Last Admin: 02/01/18 09:23 Dose: Not Given Atorvastatin Calcium (Lipitor) 40 mg PO HS [facility] Stop: 03/28/18 20:59 Last Admin: 01/31/18 20:29 Dose: Not Given Chlorpromazine (Thorazine) 100 mg PO TID [facility] Stop: 03/29/18 13:59 Last Admin: 02/01/18 13:25 Dose: 100 mg Clonazepam (Klonopin) 0.5 mg PO BID [facility] PRN Reason: Protocol Stop: 03/24/18 08:59 Last Admin: 02/01/18 09:23 Dose: Not Given Fenofibrate (Tricor) 134 mg PO HS [facility] Stop: 03/24/18 20:59 Last Admin: 01/31/18 20:29 Dose: Not Given Insulin Aspart (Novolog Insulin Sliding Scale) 0 units SUBQ ACHS [facility] PRN Reason: Protocol Stop: 03/24/18 07:29 Last Admin: 02/01/18 13:23 Dose: Not Given Insulin Detemir (Levemir Insulin) 30 units SUBQ Q12HR [facility] Stop: 03/28/18 08:59 Last Admin: 02/01/18 09:23 Dose: Not Given Lactulose (Cephulac) 30 gm PO DAILY [facility] Stop: 03/24/18 08:59 Last Admin: 02/01/18 09:23 Dose: Not Given Lisinopril (Zestril) 5 mg PO DAILY [facility] Stop: 03/24/18 16:59 Last Admin: 02/01/18 09:23 Dose: Not Given Lorazepam (Ativan) 0.5 mg PO Q6HR PRN; Protocol PRN Reason: Agitation Stop: 03/23/18 23:41 Quetiapine Fumarate (Seroquel) 300 mg PO TID [facility] PRN Reason: Protocol Stop: 03/24/18 08:59 Last Admin: 02/01/18 13:25 Dose: 300 mg Zolpidem Tartrate (Ambien) 5 mg PO HS PRN PRN Reason: Insomnia Stop: 03/23/18 23:43 General: Alert, No acute distress HEENT: Atraumatic, PERRLA, EOMI Neck: Supple, JVD, Thyromegaly Cardiovascular: Regular rate, Normal S1, Normal S2 Abdomen: Bowel sounds, Soft Assessment/Plan - Assessment Assessment: 1.DM. 2.HTN. 3.HYPELIPEDEMIA 4.PSYCHOSIS. - Plan Plan: cont current treatment Nutritional Asmnt/Malnutr-PDOC - Dietary Evaluation Malnutrition Findings (Please click <Entered> for more info): Nutritional Asmnt/Malnutrition Start: 01/23/18 13: 46 Text: Status: Complete Freq: Document 01/23/18 13:46 LCHENG (Rec: 01/23/18 13:58 [email or web address]) Nutritional Asmnt/Malnutrition Patient General Information Nutritional Screening High Risk Diagnosis psychosis Pertinent Medical Hx/Surgical Hx psychosis, HTN, DM, hyperlipidemia Subjective Information Pt seen sitting in hallway, confused, eating lunch at time of visit. By observation, pt consumed 90% of his lunch. Pt got angry when talking about diabetes and blood sugar. Pt stated he has no diabetes. glucose 186 at admitting noted . [facility] Pertinent Medications novolog, cephulac, seroquel Pertinent Labs 01/22 Na 130, BUN 29, Cr 1.8, glucose 186, POC 267 Nutritional Hx/Data Height 1.78 m Height (Calculated Centimeters) 177.8 Current Weight (lbs) 68.039 kg Weight (Calculated Kilograms) 68.0 Weight (Calculated Grams) 74850.9 [place] Body Weight 166 % [place] Body Weight 90 Body Mass Index (BMI) 21.5 Weight Status Approriate GI Symptoms GI Symptoms None Last BM no record Difficult in: None Skin Integrity/Comment: not indicated Estimated Nutritional Goals BEE in Kcals: Using Current wt Calories/Kcals/Kg 25-30 Kcals Calculated 5274-3056 Protein: Using Current wt Protein g/k-1.2 Protein Calculated 68-82 Fluid: ml 1700-2040ml (1ml/kcal) Nutritional Problem 1. Problem Problem altered nutrition related labs Etiology chronic renal suff, hx of DM Signs/Symptoms: BUN 29, Cr 1.8, glucose 186, POC 267 Malnutrition Alert Protein-Calorie Malnutrition N/A Is there a minimum of two criteria No selected? Query Text:Check all the applicable criteria. A minimum of two criteria are recommended for diagnosis of either severe or non-severe malnutrition. Intervention/Recommendation Comments 1. Continue with CCHO-60gm diet as ordered. Monitor accucheck. 2. Monitor PO intake, wt, labs and skin integrity 3. F/U as moderate risk in 3-5 days, 01/26-01/28 Expected Outcomes/Goals Expected Outcomes/Goals 1. PO intake to meet at least 75% of nutritional needs. 2. Wt stability, skin to remain intact, labs to approach WNL.
[2018-02-01] MEDS: Fenofibrate, Micronized 134 mg Cap PO SCH (20:41)
--- NOTE | 2018-02-02 02:36 | Progress Notes ---
DATE: 02/01/2018 SUBJECTIVE: A 58-year-old male living in [facility] was agitated, aggressive with the staff, not following directions, hitting others, unable to comply with medication, suspicious and paranoid. On [id number], the patient remains unruly, talking about different topics, disorganized, paranoid, posturing at times, irritable, yelling for unknown reasons, unable to care for himself. He cannot be cared for at a lower level of care given his ongoing psychotic symptoms. Medications were noted. The patient talking about gasoline and then talking about "red people." ASSESSMENT: The patient is agitated, irritable, disorganized, nonsensical, talking nonsequiturs. PLAN: We will continue to monitor. Continue to titrate and adjust medications. The patient will likely need titration of antipsychotic medications. [facility]# [id number]
[2018-02-02] MEDS: INSULIN ASPART SLIDING SCALE 100 UNITS/ML UNIT SUBQ SCH ×4 (06:41→21:09)
--- NOTE | 2018-02-02 08:10 | General Progress Note ---
Subjective - Review of Systems Service Date: 02/02/18 Subjective: awake and alert no distress Objective - Results Result Diagrams: 01/22/18 17:35 01/22/18 17:35 Recent Labs: Laboratory Last Values WBC 7.3 Th/cmm (4.8-10.8) 01/22/18 17:35 RBC 4.90 Mil/cmm (4.30-5.70) 01/22/18 17:35 Hgb 15.5 gm/dL (12-16) 01/22/18 17:35 Hct 45.8 % (41.0-60) 01/22/18 17:35 MCV 93.5 fl (80-99) 01/22/18 17:35 MCH 31.6 pg (26.0-30.0) H 01/22/18 17:35 MCHC Differential 33.8 pg (28.0-36.0) 01/22/18 17:35 RDW 12.3 % (11.5-20.0) 01/22/18 17:35 Plt Count 214 Th/cmm (150-400) 01/22/18 17:35 MPV 7.9 fl 01/22/18 17:35 Neutrophils % 55.2 % (40.0-80.0) 01/22/18 17:35 Lymphocytes % 31.9 % (20.0-50.0) 01/22/18 17:35 Monocytes % 10.4 % (2.0-10.0) H 01/22/18 17:35 Eosinophils % 1.2 % (0.0-5.0) 01/22/18 17:35 Basophils % 1.3 % (0.0-2.0) 01/22/18 17:35 Sodium 130 mEq/L (136-145) L 01/22/18 17:35 Potassium 4.2 mEq/L (3.5-5.1) 01/22/18 17:35 Chloride 103 mEq/L (98-107) 01/22/18 17:35 Carbon Dioxide 21.2 mEq/L (21.0-31.0) 01/22/18 17:35 Anion Gap 10.0 (7.0-16.0) 01/22/18 17:35 BUN 29 mg/dL (7-25) H 03/21/18 17:35 Creatinine 1.8 mg/dL (0.7-1.3) H 01/22/18 17:35 Est GFR ( Amer) 50.4 ml/min (>90) 01/22/18 17:35 Est GFR (Non-Af Amer) 41.7 ml/min 01/22/18 17:35 BUN/Creatinine Ratio 16.1 01/22/18 17:35 Glucose 186 mg/dL (70-105) H 01/22/18 17:35 POC Glucose 99 MG/DL (70 - 105) 01/23/18 17:29 Hemoglobin A1c % 8.1 % (4.0-6.0) H 01/22/18 17:35 Calcium 9.9 mg/dL (8.6-10.3) 01/22/18 17:35 Total Bilirubin 0.3 mg/dL (0.3-1.0) 01/22/18 17:35 AST 16 U/L (13-39) 01/22/18 17:35 ALT 22 U/L (7-52) 01/22/18 17:35 Alkaline Phosphatase 28 U/L (34-104) L 01/22/18 17:35 Total Protein 7.0 gm/dL (6.0-8.3) 01/22/18 17:35 Albumin 3.7 gm/dL (4.2-5.5) L 01/22/18 17:35 Globulin 3.3 gm/dL 01/22/18 17:35 Albumin/Globulin Ratio 1.1 (1.0-1.8) 01/22/18 17:35 Triglycerides 435 mg/dL (<150) H 01/22/18 17:35 Cholesterol 209 mg/dL (<200) H 01/22/18 17:35 LDL Cholesterol Direct 106 mg/dL (75-193) 01/22/18 17:35 HDL Cholesterol 34 mg/dL (23-92) 01/22/18 17:35 TSH 0.66 uIU/ml (0.34-5.60) 01/22/18 17:35 Salicylates < 25.0 mg/L (30.0-100.0) L 01/22/18 17:35 Acetaminophen < 10.0 ug/mL (10.0-30.0) L 01/22/18 17:35 Ethyl Alcohol < 10 mg/dL (0-10) 01/22/18 17:35 RPR NONREACTIVE (NONREACTIVE) 01/22/18 17:35 - Physical Exam Vitals and I&O: Vital Signs Temp 98.4 F 02/01/18 20:11 Pulse 102 02/01/18 20:11 Resp 20 02/01/18 20:11 BP 139/82 02/01/18 20:11 Pulse Ox 97 02/01/18 20:11 Intake & Output 02/01/18 02/02/18 02/02/18 18:59 06:59 18:59 Intake Total 900 720 Balance 900 720 Intake: Oral 900 720 Other: # Voids 3 2 Active Medications: Current Medications Aspirin (Ecotrin) 81 mg PO DAILY [facility] Stop: 03/24/18 08:59 Last Admin: 02/01/18 09:23 Dose: Not Given Atorvastatin Calcium (Lipitor) 40 mg PO HS [facility] Stop: 03/28/18 20:59 Last Admin: 02/01/18 20:41 Dose: Not Given Chlorpromazine (Thorazine) 100 mg PO TID [facility] Stop: 03/29/18 13:59 Last Admin: 02/01/18 20:39 Dose: 100 mg Clonazepam (Klonopin) 0.5 mg PO BID [facility] PRN Reason: Protocol Stop: 03/24/18 08:59 Last Admin: 02/01/18 18:20 Dose: Not Given Fenofibrate (Tricor) 134 mg PO HS [facility] Stop: 03/24/18 20:59 Last Admin: 02/01/18 20:41 Dose: Not Given Insulin Aspart (Novolog Insulin Sliding Scale) 0 units SUBQ ACHS [facility] PRN Reason: Protocol Stop: 03/24/18 07:29 Last Admin: 02/02/18 06:41 Dose: Not Given Insulin Detemir (Levemir Insulin) 30 units SUBQ Q12HR [facility] Stop: 03/28/18 08:59 Last Admin: 02/01/18 20:41 Dose: Not Given Lactulose (Cephulac) 30 gm PO DAILY [facility] Stop: 03/24/18 08:59 Last Admin: 02/01/18 09:23 Dose: Not Given Lisinopril (Zestril) 5 mg PO DAILY [facility] Stop: 03/24/18 16:59 Last Admin: 02/01/18 09:23 Dose: Not Given Lorazepam (Ativan) 0.5 mg PO Q6HR PRN; Protocol PRN Reason: Agitation Stop: 03/23/18 23:41 Quetiapine Fumarate (Seroquel) 300 mg PO TID [facility] PRN Reason: Protocol Stop: 03/24/18 08:59 Last Admin: 02/01/18 20:42 Dose: Not Given Zolpidem Tartrate (Ambien) 5 mg PO HS PRN PRN Reason: Insomnia Stop: 03/23/18 23:43 General: Alert, No acute distress HEENT: Atraumatic, PERRLA, EOMI Neck: Supple, JVD, Thyromegaly Cardiovascular: Regular rate, Normal S1, Normal S2 Abdomen: Bowel sounds, Soft Assessment/Plan - Assessment Assessment: 1.DM. 2.HTN. 3.HYPELIPEDEMIA 4.PSYCHOSIS. - Plan Plan: cont current treatment Nutritional Asmnt/Malnutr-PDOC - Dietary Evaluation Malnutrition Findings (Please click <Entered> for more info): Nutritional Asmnt/Malnutrition Start: 01/23/18 13: 46 Text: Status: Complete Freq: Document 01/23/18 13:46 LCHENG (Rec: 01/23/18 13:58 [email or web address]) Nutritional Asmnt/Malnutrition Patient General Information Nutritional Screening High Risk Diagnosis psychosis Pertinent Medical Hx/Surgical Hx psychosis, HTN, DM, hyperlipidemia Subjective Information Pt seen sitting in hallway, confused, eating lunch at time of visit. By observation, pt consumed 90% of his lunch. Pt got angry when talking about diabetes and blood sugar. Pt stated he has no diabetes. glucose 186 at admitting noted . Current Diet Order/ [facility] Pertinent Medications novolog, cephulac, seroquel Pertinent Labs 01/22 Na 130, BUN 29, Cr 1.8, glucose 186, POC 267 Nutritional Hx/Data Height 1.78 m Height (Calculated Centimeters) 177.8 Current Weight (lbs) 68.039 kg Weight (Calculated Kilograms) 68.0 Weight (Calculated Grams) 35105.9 [place] Body Weight 166 % [place] Body Weight 90 Body Mass Index (BMI) 21.5 Weight Status Approriate GI Symptoms GI Symptoms None Last BM no record Difficult in: None Skin Integrity/Comment: not indicated Estimated Nutritional Goals BEE in Kcals: Using Current wt Calories/Kcals/Kg 25-30 Kcals Calculated 4939-6783 Protein: Using Current wt Protein g/k-1.2 Protein Calculated 68-82 Fluid: ml 1700-2040ml (1ml/kcal) Nutritional Problem 1. Problem Problem altered nutrition related labs Etiology chronic renal suff, hx of DM Signs/Symptoms: BUN 29, Cr 1.8, glucose 186, POC 267 Malnutrition Alert Protein-Calorie Malnutrition N/A Is there a minimum of two criteria No selected? Query Text:Check all the applicable criteria. A minimum of two criteria are recommended for diagnosis of either severe or non-severe malnutrition. Intervention/Recommendation Comments 1. Continue with CCHO-60gm diet as ordered. Monitor accucheck. 2. Monitor PO intake, wt, labs and skin integrity 3. F/U as moderate risk in 3-5 days, 01/26-01/28 Expected Outcomes/Goals Expected Outcomes/Goals 1. PO intake to meet at least 75% of nutritional needs. 2. Wt stability, skin to remain intact, labs to approach WNL.
[2018-02-02] MEDS: Insulin Detemir 100 units/mL 10mL Vial SUBQ SCH ×2 (09:06→21:09)
[2018-02-02] MEDS: Lactulose 10 Gm/15 mL 30mL UDC PO SCH (09:06)
--- NOTE | 2018-02-02 17:52 | Progress Notes ---
DATE: 02/02/2018 The patient remains bizarre, disoriented, asking for more Thorazine, not making any sense, speaking in , disorganized behaviors, yelling for unknown reasons. Medications were noted. He remains isolative, paranoid and suspicious. ASSESSMENT: The patient remains symptomatic, bizarre behaviors, disorganized behaviors, disorganized thoughts. PLAN: We will continue to monitor given ongoing symptoms. The patient is too psychotic to be cared for at a lower level of care. [facility]# [id number]
--- NOTE | 2018-02-02 18:12 | Progress Notes ---
DATE: 01/29/2018 SUBJECTIVE: Chart reviewed and the patient interviewed. Also discussed the patient's condition with the staff and reviewed the records and labs. The patient is still confused. The patient also is rambling. He is still actively hallucinating. During interview, the patient was talking to himself and easily irritable and agitated. Otherwise, the patient is compliant with taking his medications with no side effects of medications. ASSESSMENT: The patient is still psychotic. TREATMENT PLAN: We will continue Seroquel 300 mg twice a day, Thorazine 100 mg 3 times a day as well as Klonopin 0.5 twice a day and we will continue to follow up his behavior and his condition closely. [facility]# [id number]
--- NOTE | 2018-02-02 20:14 | Progress Notes ---
DATE: SUBJECTIVE: Chart reviewed and the patient interviewed. Also discussed the patient's condition with the staff and reviewed records and labs. The patient is still irritable and is still agitated. Also, still needs re-directions. Also, is still actively hallucinating. The patient also refused medications except taking Thorazine and the patient said that he likes Thorazine only. The patient also still threatening staff and is aggressive. Otherwise, the patient is compliant with taking his medications, Thorazine. ASSESSMENT: The patient is still psychotic and agitated. TREATMENT PLAN: Continue Thorazine same dose and will continue to follow up with his behavior and his condition closely. JOB# [id number]
[2018-02-02] MEDS: Fenofibrate, Micronized 134 mg Cap PO SCH (21:09)
[2018-02-03] MEDS: INSULIN ASPART SLIDING SCALE 100 UNITS/ML UNIT SUBQ SCH ×4 (06:33→21:10)
[2018-02-03] MEDS: Lactulose 10 Gm/15 mL 30mL UDC PO SCH (09:59)
[2018-02-03] MEDS: Insulin Detemir 100 units/mL 10mL Vial SUBQ SCH ×2 (09:59→21:10)
--- NOTE | 2018-02-03 18:20 | Internal Medicine Prog Note ---
Internal Medicine Subjective - Subjective Service Date: 02/03/18 Patient seen and examined:: with staff Patient is:: awake, in bed, talking Per staff patient has:: no adverse event (HE FEELS WELL) Internal Medicine Objective - Results Result Diagrams: 01/22/18 17:35 01/22/18 17:35 Recent Labs: Laboratory Last Values WBC 7.3 Th/cmm (4.8-10.8) 01/22/18 17:35 RBC 4.90 Mil/cmm (4.30-5.70) 01/22/18 17:35 Hgb 15.5 gm/dL (12-16) 01/22/18 17:35 Hct 45.8 % (41.0-60) 01/22/18 17:35 MCV 93.5 fl (80-99) 01/22/18 17:35 MCH 31.6 pg (26.0-30.0) H 01/22/18 17:35 MCHC Differential 33.8 pg (28.0-36.0) 01/22/18 17:35 RDW 12.3 % (11.5-20.0) 01/22/18 17:35 Plt Count 214 Th/cmm (150-400) 01/22/18 17:35 MPV 7.9 fl 01/22/18 17:35 Neutrophils % 55.2 % (40.0-80.0) 01/22/18 17:35 Lymphocytes % 31.9 % (20.0-50.0) 01/22/18 17:35 Monocytes % 10.4 % (2.0-10.0) H 01/22/18 17:35 Eosinophils % 1.2 % (0.0-5.0) 01/22/18 17:35 Basophils % 1.3 % (0.0-2.0) 01/22/18 17:35 Sodium 130 mEq/L (136-145) L 01/22/18 17:35 Potassium 4.2 mEq/L (3.5-5.1) 01/22/18 17:35 Chloride 103 mEq/L (98-107) 01/22/18 17:35 Carbon Dioxide 21.2 mEq/L (21.0-31.0) 01/22/18 17:35 Anion Gap 10.0 (7.0-16.0) 01/22/18 17:35 BUN 29 mg/dL (7-25) H 01/22/18 17:35 Creatinine 1.8 mg/dL (0.7-1.3) H 01/22/18 17:35 Est GFR ( Amer) 50.4 ml/min (>90) 01/22/18 17:35 Est GFR (Non-Af Amer) 41.7 ml/min 01/22/18 17:35 BUN/Creatinine Ratio 16.1 01/22/18 17:35 Glucose 186 mg/dL (70-105) H 01/22/18 17:35 POC Glucose 99 MG/DL (70 - 105) 01/23/18 17:29 Hemoglobin A1c % 8.1 % (4.0-6.0) H 01/22/18 17:35 Calcium 9.9 mg/dL (8.6-10.3) 01/22/18 17:35 Total Bilirubin 0.3 mg/dL (0.3-1.0) 01/22/18 17:35 AST 16 U/L (13-39) 01/22/18 17:35 ALT 22 U/L (7-52) 01/22/18 17:35 Alkaline Phosphatase 28 U/L (34-104) L 01/22/18 17:35 Total Protein 7.0 gm/dL (6.0-8.3) 01/22/18 17:35 Albumin 3.7 gm/dL (4.2-5.5) L 01/22/18 17:35 Globulin 3.3 gm/dL 01/22/18 17:35 Albumin/Globulin Ratio 1.1 (1.0-1.8) 01/22/18 17:35 Triglycerides 435 mg/dL (<150) H 01/22/18 17:35 Cholesterol 209 mg/dL (<200) H 01/22/18 17:35 LDL Cholesterol Direct 106 mg/dL (75-193) 01/22/18 17:35 HDL Cholesterol 34 mg/dL (23-92) 01/22/18 17:35 TSH 0.66 uIU/ml (0.34-5.60) 01/22/18 17:35 Salicylates < 25.0 mg/L (30.0-100.0) L 01/22/18 17:35 Acetaminophen < 10.0 ug/mL (10.0-30.0) L 01/22/18 17:35 Ethyl Alcohol < 10 mg/dL (0-10) 01/22/18 17:35 RPR NONREACTIVE (NONREACTIVE) 01/22/18 17:35 - Physical Exam Vitals and I&O: Vital Signs Temp 97.9 F 02/03/18 06:07 Pulse 82 02/03/18 10:00 Resp 20 02/03/18 08:00 BP 118/82 02/03/18 10:00 Pulse Ox 100 02/03/18 06:07 Intake & Output 02/02/18 02/03/18 02/03/18 18:59 06:59 18:59 Intake Total 620 720 Balance 620 720 Intake: Oral 620 720 Other: # Voids 2 1 Active Medications: Current Medications Aspirin (Ecotrin) 81 mg PO DAILY [facility] Stop: 03/24/18 08:59 Last Admin: 02/03/18 09:59 Dose: Not Given Atorvastatin Calcium (Lipitor) 40 mg PO HS [facility] Stop: 03/28/18 20:59 Last Admin: 02/02/18 21:40 Dose: Not Given Chlorpromazine (Thorazine) 200 mg PO TID [facility] Stop: 04/04/18 08:59 Last Admin: 02/03/18 14:28 Dose: 200 mg Clonazepam (Klonopin) 0.5 mg PO BID [facility] PRN Reason: Protocol Stop: 03/24/18 08:59 Last Admin: 02/03/18 09:59 Dose: Not Given Fenofibrate (Tricor) 134 mg PO HS [facility] Stop: 03/24/18 20:59 Last Admin: 02/02/18 21:09 Dose: Not Given Insulin Aspart (Novolog Insulin Sliding Scale) 0 units SUBQ ACHS [facility] PRN Reason: Protocol Stop: 03/24/18 07:29 Last Admin: 02/03/18 16:58 Dose: Not Given Insulin Detemir (Levemir Insulin) 30 units SUBQ Q12HR [facility] Stop: 03/28/18 08:59 Last Admin: 02/03/18 09:59 Dose: Not Given Lactulose (Cephulac) 30 gm PO DAILY [facility] Stop: 03/24/18 08:59 Last Admin: 02/03/18 09:59 Dose: Not Given Lisinopril (Zestril) 5 mg PO DAILY [facility] Stop: 03/24/18 16:59 Last Admin: 02/03/18 10:00 Dose: Not Given Lorazepam (Ativan) 0.5 mg PO Q6HR PRN; Protocol PRN Reason: Agitation Stop: 03/23/18 23:41 Quetiapine Fumarate (Seroquel) 100 mg PO TID [facility] PRN Reason: Protocol Stop: 04/04/18 08:59 Last Admin: 02/03/18 14:28 Dose: Not Given Zolpidem Tartrate (Ambien) 5 mg PO HS PRN PRN Reason: Insomnia Stop: 03/23/18 23:43 General: demented HEENT: NC/AT, PERRLA, EOMI, anicteric sclerae, throat clear Neck: Supple, No JVD, No thyromegaly, +2 carotid pulse wo bruit, No LAD, + JVD Lungs: CTAB Cardiovascular: RRR, Normal S1, Normal S2, without murmur Abdomen: non-tender, non-distended Neurological: no change Internal Medicine Assmt/Plan - Assessment Assessment: 1.DM. 2.HTN. 3.HYPELIPEDEMIA 4.PSYCHOSIS. - Plan Plan: CONTINUE ON CURRENT MEDICATION AND DIET. Nutritional Asmnt/Malnutr-PDOC - Dietary Evaluation Malnutrition Findings (Please click <Entered> for more info): Nutritional Asmnt/Malnutrition Start: 01/23/18 13: 46 Text: Status: Complete Freq: Document 01/23/18 13:46 BRUNA (Rec: 01/23/18 13:58 [email or web address] Nutritional Asmnt/Malnutrition Patient General Information Nutritional Screening High Risk Diagnosis psychosis Pertinent Medical Hx/Surgical Hx psychosis, HTN, DM, hyperlipidemia Subjective Information Pt seen sitting in hallway, confused, eating lunch at time of visit. By observation, pt consumed 90% of his lunch. Pt got angry when talking about diabetes and blood sugar. Pt stated he has no diabetes. glucose 186 at admitting noted . [facility] Pertinent Medications novolog, cephulac, seroquel Pertinent Labs 01/22 Na 130, BUN 29, Cr 1.8, glucose 186, POC 267 Nutritional Hx/Data Height 1.78 m Height (Calculated Centimeters) 177.8 Current Weight (lbs) 68.039 kg Weight (Calculated Kilograms) 68.0 Weight (Calculated Grams) 66871.9 [place] Body Weight 166 % [place] Body Weight 90 Body Mass Index (BMI) 21.5 Weight Status Approriate GI Symptoms GI Symptoms None Last BM no record Difficult in: None Skin Integrity/Comment: not indicated Estimated Nutritional Goals BEE in Kcals: Using Current wt Calories/Kcals/Kg 25-30 Kcals Calculated 1113-5033 Protein: Using Current wt Protein g/k-1.2 Protein Calculated 68-82 Fluid: ml 1700-2040ml (1ml/kcal) Nutritional Problem 1. Problem Problem altered nutrition related labs Etiology chronic renal suff, hx of DM Signs/Symptoms: BUN 29, Cr 1.8, glucose 186, POC 267 Malnutrition Alert Protein-Calorie Malnutrition N/A Is there a minimum of two criteria No selected? Query Text:Check all the applicable criteria. A minimum of two criteria are recommended for diagnosis of either severe or non-severe malnutrition. Intervention/Recommendation Comments 1. Continue with CCHO-60gm diet as ordered. Monitor accucheck. 2. Monitor PO intake, wt, labs and skin integrity 3. F/U as moderate risk in 3-5 days, 01/26-01/28 Expected Outcomes/Goals Expected Outcomes/Goals 1. PO intake to meet at least 75% of nutritional needs. 2. Wt stability, skin to remain intact, labs to approach WNL.
[2018-02-03] MEDS: Fenofibrate, Micronized 134 mg Cap PO SCH (21:10)
[2018-02-04] MEDS: INSULIN ASPART SLIDING SCALE 100 UNITS/ML UNIT SUBQ SCH ×4 (06:54→21:12)
[2018-02-04] MEDS: Lactulose 10 Gm/15 mL 30mL UDC PO SCH (09:13)
[2018-02-04] MEDS: Insulin Detemir 100 units/mL 10mL Vial SUBQ SCH ×2 (09:23→21:13)
[2018-02-04] MEDS: Fenofibrate, Micronized 134 mg Cap PO SCH (21:12)
--- NOTE | 2018-02-04 23:18 | Internal Medicine Prog Note ---
Internal Medicine Subjective - Subjective Service Date: 02/04/18 Patient seen and examined:: with staff Patient is:: awake, in bed, talking Per staff patient has:: no adverse event (HE FEELS WELL) Internal Medicine Objective - Results Result Diagrams: 01/22/18 17:35 01/22/18 17:35 Recent Labs: Laboratory Last Values WBC 7.3 Th/cmm (4.8-10.8) 01/22/18 17:35 RBC 4.90 Mil/cmm (4.30-5.70) 01/22/18 17:35 Hgb 15.5 gm/dL (12-16) 01/22/18 17:35 Hct 45.8 % (41.0-60) 01/22/18 17:35 MCV 93.5 fl (80-99) 01/22/18 17:35 MCH 31.6 pg (26.0-30.0) H 01/22/18 17:35 MCHC Differential 33.8 pg (28.0-36.0) 01/22/18 17:35 RDW 12.3 % (11.5-20.0) 01/22/18 17:35 Plt Count 214 Th/cmm (150-400) 01/22/18 17:35 MPV 7.9 fl 01/22/18 17:35 Neutrophils % 55.2 % (40.0-80.0) 01/22/18 17:35 Lymphocytes % 31.9 % (20.0-50.0) 01/22/18 17:35 Monocytes % 10.4 % (2.0-10.0) H 01/22/18 17:35 Eosinophils % 1.2 % (0.0-5.0) 01/22/18 17:35 Basophils % 1.3 % (0.0-2.0) 01/22/18 17:35 Sodium 130 mEq/L (136-145) L 01/22/18 17:35 Potassium 4.2 mEq/L (3.5-5.1) 01/22/18 17:35 Chloride 103 mEq/L (98-107) 01/22/18 17:35 Carbon Dioxide 21.2 mEq/L (21.0-31.0) 01/22/18 17:35 Anion Gap 10.0 (7.0-16.0) 01/22/18 17:35 BUN 29 mg/dL (7-25) H 01/22/18 17:35 Creatinine 1.8 mg/dL (0.7-1.3) H 01/22/18 17:35 Est GFR ( Amer) 50.4 ml/min (>90) 01/22/18 17:35 Est GFR (Non-Af Amer) 41.7 ml/min 01/22/18 17:35 BUN/Creatinine Ratio 16.1 01/22/18 17:35 Glucose 186 mg/dL (70-105) H 01/22/18 17:35 POC Glucose 99 MG/DL (70 - 105) 01/23/18 17:29 Hemoglobin A1c % 8.1 % (4.0-6.0) H 01/22/18 17:35 Calcium 9.9 mg/dL (8.6-10.3) 01/22/18 17:35 Total Bilirubin 0.3 mg/dL (0.3-1.0) 01/22/18 17:35 AST 16 U/L (13-39) 01/22/18 17:35 ALT 22 U/L (7-52) 01/22/18 17:35 Alkaline Phosphatase 28 U/L (34-104) L 01/22/18 17:35 Total Protein 7.0 gm/dL (6.0-8.3) 01/22/18 17:35 Albumin 3.7 gm/dL (4.2-5.5) L 01/22/18 17:35 Globulin 3.3 gm/dL 01/22/18 17:35 Albumin/Globulin Ratio 1.1 (1.0-1.8) 01/22/18 17:35 Triglycerides 435 mg/dL (<150) H 01/22/18 17:35 Cholesterol 209 mg/dL (<200) H 01/22/18 17:35 LDL Cholesterol Direct 106 mg/dL (75-193) 01/22/18 17:35 HDL Cholesterol 34 mg/dL (23-92) 01/22/18 17:35 TSH 0.66 uIU/ml (0.34-5.60) 01/22/18 17:35 Salicylates < 25.0 mg/L (30.0-100.0) L 01/22/18 17:35 Acetaminophen < 10.0 ug/mL (10.0-30.0) L 01/22/18 17:35 Ethyl Alcohol < 10 mg/dL (0-10) 01/22/18 17:35 RPR NONREACTIVE (NONREACTIVE) 01/22/18 17:35 - Physical Exam Vitals and I&O: Vital Signs Temp 0 F 02/04/18 19:52 Pulse 99 02/03/18 20:25 Resp 20 02/04/18 08:00 BP 152/89 02/03/18 20:25 Pulse Ox 96 02/03/18 20:25 Intake & Output 02/04/18 02/04/18 02/05/18 06:59 18:59 06:59 Intake Total 240 1000 120 Balance 240 1000 120 Intake: Oral 240 1000 120 Other: # Voids 1 3 3 # Bowel Movements 0 0 Active Medications: Current Medications Aspirin (Ecotrin) 81 mg PO DAILY [facility] Stop: 03/24/18 08:59 Last Admin: 02/04/18 09:23 Dose: Not Given Atorvastatin Calcium (Lipitor) 40 mg PO HS [facility] Stop: 03/28/18 20:59 Last Admin: 02/04/18 21:12 Dose: Not Given Chlorpromazine (Thorazine) 300 mg PO TID [facility] Stop: 04/05/18 06:16 Last Admin: 02/04/18 21:11 Dose: 300 mg Clonazepam (Klonopin) 0.5 mg PO BID [facility] PRN Reason: Protocol Stop: 03/24/18 08:59 Last Admin: 02/04/18 16:44 Dose: Not Given Fenofibrate (Tricor) 134 mg PO HS [facility] Stop: 03/24/18 20:59 Last Admin: 02/04/18 21:12 Dose: Not Given Insulin Aspart (Novolog Insulin Sliding Scale) 0 units SUBQ ACHS [facility] PRN Reason: Protocol Stop: 03/24/18 07:29 Last Admin: 02/04/18 21:12 Dose: Not Given Insulin Detemir (Levemir Insulin) 30 units SUBQ Q12HR [facility] Stop: 03/28/18 08:59 Last Admin: 02/04/18 21:13 Dose: Not Given Lactulose (Cephulac) 30 gm PO DAILY [facility] Stop: 03/24/18 08:59 Last Admin: 02/04/18 09:13 Dose: Not Given Lisinopril (Zestril) 5 mg PO DAILY [facility] Stop: 03/24/18 16:59 Last Admin: 02/04/18 09:13 Dose: Not Given Lorazepam (Ativan) 0.5 mg PO Q6HR PRN; Protocol PRN Reason: Agitation Stop: 03/23/18 23:41 Quetiapine Fumarate (Seroquel) 100 mg PO TID [facility] PRN Reason: Protocol Stop: 04/04/18 08:59 Last Admin: 02/04/18 21:13 Dose: Not Given Zolpidem Tartrate (Ambien) 5 mg PO HS PRN PRN Reason: Insomnia Stop: 03/23/18 23:43 General: demented HEENT: NC/AT, PERRLA, EOMI, anicteric sclerae, throat clear Neck: Supple, No JVD, No thyromegaly, +2 carotid pulse wo bruit, No LAD, + JVD Lungs: CTAB Cardiovascular: RRR, Normal S1, Normal S2, without murmur Abdomen: non-tender, non-distended Neurological: no change Internal Medicine Assmt/Plan - Assessment Assessment: 1.DM. 2.HTN. 3.HYPELIPEDEMIA 4.PSYCHOSIS. - Plan Plan: CONTINUE ON CURRENT MEDICATION AND DIET. Nutritional Asmnt/Malnutr-PDOC - Dietary Evaluation Malnutrition Findings (Please click <Entered> for more info): Nutritional Asmnt/Malnutrition Start: 01/23/18 13: 46 Text: Status: Complete Freq: Document 01/23/18 13:46 BRUNA (Rec: 01/23/18 13:58 [facility]-[email or web address]) Nutritional Asmnt/Malnutrition Patient General Information Nutritional Screening High Risk Diagnosis psychosis Pertinent Medical Hx/Surgical Hx psychosis, HTN, DM, hyperlipidemia Subjective Information Pt seen sitting in hallway, confused, eating lunch at time of visit. By observation, pt consumed 90% of his lunch. Pt got angry when talking about diabetes and blood sugar. Pt stated he has no diabetes. glucose 186 at admitting noted . Current Diet Order/ Nutrition Support [facility]-60gm Pertinent Medications novolog, cephulac, seroquel Pertinent Labs 01/22 Na 130, BUN 29, Cr 1.8, glucose 186, POC 267 Nutritional Hx/Data Height 1.78 m Height (Calculated Centimeters) 177.8 Current Weight (lbs) 68.039 kg Weight (Calculated Kilograms) 68.0 Weight (Calculated Grams) 78670.9 [place] Body Weight 166 % [place] Body Weight 90 Body Mass Index (BMI) 21.5 Weight Status Approriate GI Symptoms GI Symptoms None Last BM no record Difficult in: None Skin Integrity/Comment: not indicated Estimated Nutritional Goals BEE in Kcals: Using Current wt Calories/Kcals/Kg 25-30 Kcals Calculated 3769-1549 Protein: Using Current wt Protein g/k-1.2 Protein Calculated 68-82 Fluid: ml 1700-2040ml (1ml/kcal) Nutritional Problem 1. Problem Problem altered nutrition related labs Etiology chronic renal suff, hx of DM Signs/Symptoms: BUN 29, Cr 1.8, glucose 186, POC 267 Malnutrition Alert Protein-Calorie Malnutrition N/A Is there a minimum of two criteria No selected? Query Text:Check all the applicable criteria. A minimum of two criteria are recommended for diagnosis of either severe or non-severe malnutrition. Intervention/Recommendation Comments 1. Continue with CCHO-60gm diet as ordered. Monitor accucheck. 2. Monitor PO intake, wt, labs and skin integrity 3. F/U as moderate risk in 3-5 days, 01/26-01/28 Expected Outcomes/Goals Expected Outcomes/Goals 1. PO intake to meet at least 75% of nutritional needs. 2. Wt stability, skin to remain intact, labs to approach WNL.
[2018-02-05] MEDS: INSULIN ASPART SLIDING SCALE 100 UNITS/ML UNIT SUBQ SCH ×4 (07:04→20:43)
[2018-02-05] MEDS: Insulin Detemir 100 units/mL 10mL Vial SUBQ SCH ×2 (09:28→20:43)
[2018-02-05] MEDS: Lactulose 10 Gm/15 mL 30mL UDC PO SCH (09:29)
--- NOTE | 2018-02-05 14:53 | Progress Notes ---
DATE: 02/05/2018 Case was discussed with staff of the patient and reviewed records. The patient continues to be psychotic, rambling, talking to himself, unable to be redirected, unpredictable, impulsive. Dr. Dhaliwal increased his ____ 3 times a day with no side effects, no sedation, no nausea, no extrapyramidal symptoms. He is also on Seroquel 100 mg 3 times a day. No side effects with the medication, no sedation, no nausea, no extrapyramidal symptoms. We will continue to work with the patient in group therapy, milieu therapy, and adjust the medications as needed. JOB# [id number]
--- NOTE | 2018-02-05 20:21 | Internal Medicine Prog Note ---
Internal Medicine Subjective - Subjective Service Date: 02/05/18 Patient seen and examined:: with staff Patient is:: awake, in bed, talking Per staff patient has:: no adverse event (HE FEELS WELL) Internal Medicine Objective - Results Result Diagrams: 01/22/18 17:35 01/22/18 17:35 Recent Labs: Laboratory Last Values WBC 7.3 Th/cmm (4.8-10.8) 01/22/18 17:35 RBC 4.90 Mil/cmm (4.30-5.70) 01/22/18 17:35 Hgb 15.5 gm/dL (12-16) 01/22/18 17:35 Hct 45.8 % (41.0-60) 01/22/18 17:35 MCV 93.5 fl (80-99) 01/22/18 17:35 MCH 31.6 pg (26.0-30.0) H 01/22/18 17:35 MCHC Differential 33.8 pg (28.0-36.0) 01/22/18 17:35 RDW 12.3 % (11.5-20.0) 01/22/18 17:35 Plt Count 214 Th/cmm (150-400) 01/22/18 17:35 MPV 7.9 fl 01/22/18 17:35 Neutrophils % 55.2 % (40.0-80.0) 01/22/18 17:35 Lymphocytes % 31.9 % (20.0-50.0) 01/22/18 17:35 Monocytes % 10.4 % (2.0-10.0) H 01/22/18 17:35 Eosinophils % 1.2 % (0.0-5.0) 01/22/18 17:35 Basophils % 1.3 % (0.0-2.0) 01/22/18 17:35 Sodium 130 mEq/L (136-145) L 01/22/18 17:35 Potassium 4.2 mEq/L (3.5-5.1) 01/22/18 17:35 Chloride 103 mEq/L (98-107) 01/22/18 17:35 Carbon Dioxide 21.2 mEq/L (21.0-31.0) 01/22/18 17:35 Anion Gap 10.0 (7.0-16.0) 01/22/18 17:35 BUN 29 mg/dL (7-25) H 01/22/18 17:35 Creatinine 1.8 mg/dL (0.7-1.3) H 01/22/18 17:35 Est GFR ( Amer) 50.4 ml/min (>90) 01/22/18 17:35 Est GFR (Non-Af Amer) 41.7 ml/min 01/22/18 17:35 BUN/Creatinine Ratio 16.1 01/22/18 17:35 Glucose 186 mg/dL (70-105) H 01/22/18 17:35 POC Glucose 99 MG/DL (70 - 105) 01/23/18 17:29 Hemoglobin A1c % 8.1 % (4.0-6.0) H 01/22/18 17:35 Calcium 9.9 mg/dL (8.6-10.3) 01/22/18 17:35 Total Bilirubin 0.3 mg/dL (0.3-1.0) 01/22/18 17:35 AST 16 U/L (13-39) 01/22/18 17:35 ALT 22 U/L (7-52) 01/22/18 17:35 Alkaline Phosphatase 28 U/L (34-104) L 01/22/18 17:35 Total Protein 7.0 gm/dL (6.0-8.3) 01/22/18 17:35 Albumin 3.7 gm/dL (4.2-5.5) L 01/22/18 17:35 Globulin 3.3 gm/dL 01/22/18 17:35 Albumin/Globulin Ratio 1.1 (1.0-1.8) 01/22/18 17:35 Triglycerides 435 mg/dL (<150) H 01/22/18 17:35 Cholesterol 209 mg/dL (<200) H 01/22/18 17:35 LDL Cholesterol Direct 106 mg/dL (75-193) 01/22/18 17:35 HDL Cholesterol 34 mg/dL (23-92) 01/22/18 17:35 TSH 0.66 uIU/ml (0.34-5.60) 01/22/18 17:35 Salicylates < 25.0 mg/L (30.0-100.0) L 01/22/18 17:35 Acetaminophen < 10.0 ug/mL (10.0-30.0) L 01/22/18 17:35 Ethyl Alcohol < 10 mg/dL (0-10) 01/22/18 17:35 RPR NONREACTIVE (NONREACTIVE) 01/22/18 17:35 - Physical Exam Vitals and I&O: Vital Signs Temp 98.5 F 02/05/18 20:00 Pulse 67 02/05/18 20:00 Resp 20 02/05/18 20:00 BP 138/70 02/05/18 20:00 Pulse Ox 96 02/03/18 20:25 Intake & Output 02/05/18 02/05/18 02/06/18 06:59 18:59 06:59 Intake Total 240 1100 Balance 240 1100 Intake: Oral 240 1100 Other: # Voids 1 4 # Bowel Movements 0 1 Active Medications: Current Medications Aspirin (Ecotrin) 81 mg PO DAILY [facility] Stop: 03/24/18 08:59 Last Admin: 02/05/18 09:28 Dose: Not Given Atorvastatin Calcium (Lipitor) 40 mg PO HS [facility] Stop: 03/28/18 20:59 Last Admin: 02/04/18 21:12 Dose: Not Given Chlorpromazine (Thorazine) 300 mg PO TID [facility] Stop: 04/05/18 06:16 Last Admin: 02/05/18 14:30 Dose: 300 mg Clonazepam (Klonopin) 0.5 mg PO BID [facility] PRN Reason: Protocol Stop: 03/24/18 08:59 Last Admin: 02/05/18 17:42 Dose: Not Given Fenofibrate (Tricor) 134 mg PO HS [facility] Stop: 03/24/18 20:59 Last Admin: 02/04/18 21:12 Dose: Not Given Insulin Aspart (Novolog Insulin Sliding Scale) 0 units SUBQ ACHS [facility] PRN Reason: Protocol Stop: 03/24/18 07:29 Last Admin: 02/05/18 16:45 Dose: Not Given Insulin Detemir (Levemir Insulin) 30 units SUBQ Q12HR [facility] Stop: 03/28/18 08:59 Last Admin: 02/05/18 09:28 Dose: Not Given Lactulose (Cephulac) 30 gm PO DAILY [facility] Stop: 03/24/18 08:59 Last Admin: 02/05/18 09:29 Dose: Not Given Lisinopril (Zestril) 5 mg PO DAILY [facility] Stop: 03/24/18 16:59 Last Admin: 02/05/18 09:29 Dose: Not Given Lorazepam (Ativan) 0.5 mg PO Q6HR PRN; Protocol PRN Reason: Agitation Stop: 03/23/18 23:41 Quetiapine Fumarate (Seroquel) 100 mg PO TID [facility] PRN Reason: Protocol Stop: 04/04/18 08:59 Last Admin: 02/05/18 14:30 Dose: Not Given Zolpidem Tartrate (Ambien) 5 mg PO HS PRN PRN Reason: Insomnia Stop: 03/23/18 23:43 General: demented HEENT: NC/AT, PERRLA, EOMI, anicteric sclerae, throat clear Neck: Supple, No JVD, No thyromegaly, +2 carotid pulse wo bruit, No LAD, + JVD Lungs: CTAB Cardiovascular: RRR, Normal S1, Normal S2, without murmur Abdomen: non-tender, non-distended Neurological: no change Internal Medicine Assmt/Plan - Assessment Assessment: 1.DM. 2.HTN. 3.HYPELIPEDEMIA 4.PSYCHOSIS. - Plan Plan: CONTINUE ON CURRENT MEDICATION AND DIET. Nutritional Asmnt/Malnutr-PDOC - Dietary Evaluation Malnutrition Findings (Please click <Entered> for more info): Nutritional Asmnt/Malnutrition Start: 01/23/18 13: 46 Text: Status: Complete Freq: Document 01/23/18 13:46 LCBRUNA (Rec: 01/23/18 13:58 [email or web address] Nutritional Asmnt/Malnutrition Patient General Information Nutritional Screening High Risk Diagnosis psychosis Pertinent Medical Hx/Surgical Hx psychosis, HTN, DM, hyperlipidemia Subjective Information Pt seen sitting in hallway, confused, eating lunch at time of visit. By observation, pt consumed 90% of his lunch. Pt got angry when talking about diabetes and blood sugar. Pt stated he has no diabetes. glucose 186 at admitting noted . [facility] Pertinent Medications novolog, cephulac, seroquel Pertinent Labs 01/22 Na 130, BUN 29, Cr 1.8, glucose 186, POC 267 Nutritional Hx/Data Height 1.78 m Height (Calculated Centimeters) 177.8 Current Weight (lbs) 68.039 kg Weight (Calculated Kilograms) 68.0 Weight (Calculated Grams) 77839.9 [place] Body Weight 166 % [place] Body Weight 90 Body Mass Index (BMI) 21.5 Weight Status Approriate GI Symptoms GI Symptoms None Last BM no record Difficult in: None Skin Integrity/Comment: not indicated Estimated Nutritional Goals BEE in Kcals: Using Current wt Calories/Kcals/Kg 25-30 Kcals Calculated 7928-7764 Protein: Using Current wt Protein g/k-1.2 Protein Calculated 68-82 Fluid: ml 1700-2040ml (1ml/kcal) Nutritional Problem 1. Problem Problem altered nutrition related labs Etiology chronic renal suff, hx of DM Signs/Symptoms: BUN 29, Cr 1.8, glucose 186, POC 267 Malnutrition Alert Protein-Calorie Malnutrition N/A Is there a minimum of two criteria No selected? Query Text:Check all the applicable criteria. A minimum of two criteria are recommended for diagnosis of either severe or non-severe malnutrition. Intervention/Recommendation Comments 1. [facility] as ordered. Monitor accucheck. 2. Monitor PO intake, wt, labs and skin integrity 3. F/U as moderate risk in 3-5 days, 01/26-01/28 Expected Outcomes/Goals Expected Outcomes/Goals 1. PO intake to meet at least 75% of nutritional needs. 2. Wt stability, skin to remain intact, labs to approach WNL.
[2018-02-05] MEDS: Fenofibrate, Micronized 134 mg Cap PO SCH (20:44)
[2018-02-06] MEDS: INSULIN ASPART SLIDING SCALE 100 UNITS/ML UNIT SUBQ SCH ×2 (06:39→11:21)
[2018-02-06] MEDS: Insulin Detemir 100 units/mL 10mL Vial SUBQ SCH (08:00)
[2018-02-06] MEDS: Lactulose 10 Gm/15 mL 30mL UDC PO SCH (08:00)
--- NOTE | 2018-02-06 08:07 | Internal Medicine Prog Note ---
Internal Medicine Subjective - Subjective Service Date: 02/06/18 Patient seen and examined:: with staff Patient is:: awake, in bed, talking Per staff patient has:: no adverse event (HE FEELS WELL) Internal Medicine Objective - Results Result Diagrams: 01/22/18 17:35 01/22/18 17:35 Recent Labs: Laboratory Last Values WBC 7.3 Th/cmm (4.8-10.8) 01/22/18 17:35 RBC 4.90 Mil/cmm (4.30-5.70) 01/22/18 17:35 Hgb 15.5 gm/dL (12-16) 01/22/18 17:35 Hct 45.8 % (41.0-60) 01/22/18 17:35 MCV 93.5 fl (80-99) 01/22/18 17:35 MCH 31.6 pg (26.0-30.0) H 01/22/18 17:35 MCHC Differential 33.8 pg (28.0-36.0) 01/22/18 17:35 RDW 12.3 % (11.5-20.0) 01/22/18 17:35 Plt Count 214 Th/cmm (150-400) 01/22/18 17:35 MPV 7.9 fl 01/22/18 17:35 Neutrophils % 55.2 % (40.0-80.0) 01/22/18 17:35 Lymphocytes % 31.9 % (20.0-50.0) 01/22/18 17:35 Monocytes % 10.4 % (2.0-10.0) H 01/22/18 17:35 Eosinophils % 1.2 % (0.0-5.0) 01/22/18 17:35 Basophils % 1.3 % (0.0-2.0) 01/22/18 17:35 Sodium 130 mEq/L (136-145) L 01/22/18 17:35 Potassium 4.2 mEq/L (3.5-5.1) 01/22/18 17:35 Chloride 103 mEq/L (98-107) 01/22/18 17:35 Carbon Dioxide 21.2 mEq/L (21.0-31.0) 01/22/18 17:35 Anion Gap 10.0 (7.0-16.0) 01/22/18 17:35 BUN 29 mg/dL (7-25) H 01/22/18 17:35 Creatinine 1.8 mg/dL (0.7-1.3) H 01/22/18 17:35 Est GFR ( Amer) 50.4 ml/min (>90) 01/22/18 17:35 Est GFR (Non-Af Amer) 41.7 ml/min 01/22/18 17:35 BUN/Creatinine Ratio 16.1 01/22/18 17:35 Glucose 186 mg/dL (70-105) H 01/22/18 17:35 POC Glucose 99 MG/DL (70 - 105) 01/23/18 17:29 Hemoglobin A1c % 8.1 % (4.0-6.0) H 01/22/18 17:35 Calcium 9.9 mg/dL (8.6-10.3) 01/22/18 17:35 Total Bilirubin 0.3 mg/dL (0.3-1.0) 01/22/18 17:35 AST 16 U/L (13-39) 01/22/18 17:35 ALT 22 U/L (7-52) 01/22/18 17:35 Alkaline Phosphatase 28 U/L (34-104) L 01/22/18 17:35 Total Protein 7.0 gm/dL (6.0-8.3) 01/22/18 17:35 Albumin 3.7 gm/dL (4.2-5.5) L 01/22/18 17:35 Globulin 3.3 gm/dL 01/22/18 17:35 Albumin/Globulin Ratio 1.1 (1.0-1.8) 01/22/18 17:35 Triglycerides 435 mg/dL (<150) H 01/22/18 17:35 Cholesterol 209 mg/dL (<200) H 01/22/18 17:35 LDL Cholesterol Direct 106 mg/dL (75-193) 01/22/18 17:35 HDL Cholesterol 34 mg/dL (23-92) 01/22/18 17:35 TSH 0.66 uIU/ml (0.34-5.60) 01/22/18 17:35 Salicylates < 25.0 mg/L (30.0-100.0) L 01/22/18 17:35 Acetaminophen < 10.0 ug/mL (10.0-30.0) L 01/22/18 17:35 Ethyl Alcohol < 10 mg/dL (0-10) 01/22/18 17:35 RPR NONREACTIVE (NONREACTIVE) 01/22/18 17:35 - Physical Exam Vitals and I&O: Vital Signs Temp 98.5 F 02/05/18 20:00 Pulse 67 02/05/18 20:00 Resp 20 02/05/18 20:00 BP 138/70 02/05/18 20:00 Pulse Ox 96 02/03/18 20:25 Intake & Output 02/05/18 02/06/18 02/06/18 18:59 06:59 18:59 Intake Total 1100 Balance 1100 Intake: Oral 1100 Other: # Voids 4 # Bowel Movements 1 Active Medications: Current Medications Aspirin (Ecotrin) 81 mg PO DAILY [facility] Stop: 03/24/18 08:59 Last Admin: 02/06/18 08:00 Dose: Not Given Atorvastatin Calcium (Lipitor) 40 mg PO HS [facility] Stop: 03/28/18 20:59 Last Admin: 02/05/18 20:44 Dose: Not Given Chlorpromazine (Thorazine) 300 mg PO TID [facility] Stop: 04/05/18 06:16 Last Admin: 02/06/18 08:00 Dose: 300 mg Clonazepam (Klonopin) 0.5 mg PO BID [facility] PRN Reason: Protocol Stop: 03/24/18 08:59 Last Admin: 02/06/18 08:00 Dose: Not Given Fenofibrate (Tricor) 134 mg PO HS [facility] Stop: 03/24/18 20:59 Last Admin: 02/05/18 20:44 Dose: Not Given Insulin Aspart (Novolog Insulin Sliding Scale) 0 units SUBQ ACHS [facility] PRN Reason: Protocol Stop: 03/24/18 07:29 Last Admin: 02/06/18 06:39 Dose: Not Given Insulin Detemir (Levemir Insulin) 30 units SUBQ Q12HR [facility] Stop: 03/28/18 08:59 Last Admin: 02/06/18 08:00 Dose: Not Given Lactulose (Cephulac) 30 gm PO DAILY [facility] Stop: 03/24/18 08:59 Last Admin: 02/06/18 08:00 Dose: Not Given Lisinopril (Zestril) 5 mg PO DAILY [facility] Stop: 03/24/18 16:59 Last Admin: 02/06/18 08:01 Dose: Not Given Lorazepam (Ativan) 0.5 mg PO Q6HR PRN; Protocol PRN Reason: Agitation Stop: 03/23/18 23:41 Quetiapine Fumarate (Seroquel) 100 mg PO TID [facility] PRN Reason: Protocol Stop: 04/04/18 08:59 Last Admin: 02/06/18 08:01 Dose: Not Given Zolpidem Tartrate (Ambien) 5 mg PO HS PRN PRN Reason: Insomnia Stop: 03/23/18 23:43 General: demented HEENT: NC/AT, PERRLA, EOMI, anicteric sclerae, throat clear Neck: Supple, No JVD, No thyromegaly, +2 carotid pulse wo bruit, No LAD, + JVD Lungs: CTAB Cardiovascular: RRR, Normal S1, Normal S2, without murmur Abdomen: non-tender, non-distended Neurological: no change Internal Medicine Assmt/Plan - Assessment Assessment: 1.DM. 2.HTN. 3.HYPELIPEDEMIA 4.PSYCHOSIS. - Plan Plan: CONTINUE ON CURRENT MEDICATION AND DIET. Nutritional Asmnt/Malnutr-PDOC - Dietary Evaluation Malnutrition Findings (Please click <Entered> for more info): Nutritional Asmnt/Malnutrition Start: 01/23/18 13: 46 Text: Status: Complete Freq: Document 01/23/18 13:46 BRUNA (Rec: 01/23/18 13:58 [email or web address] Nutritional Asmnt/Malnutrition Patient General Information Nutritional Screening High Risk Diagnosis psychosis Pertinent Medical Hx/Surgical Hx psychosis, HTN, DM, hyperlipidemia Subjective Information Pt seen sitting in hallway, confused, eating lunch at time of visit. By observation, pt consumed 90% of his lunch. Pt got angry when talking about diabetes and blood sugar. Pt stated he has no diabetes. glucose 186 at admitting noted . [facility] Pertinent Medications novolog, cephulac, seroquel Pertinent Labs 01/22 Na 130, BUN 29, Cr 1.8, glucose 186, POC 267 Nutritional Hx/Data Height 1.78 m Height (Calculated Centimeters) 177.8 Current Weight (lbs) 68.039 kg Weight (Calculated Kilograms) 68.0 Weight (Calculated Grams) 71895.9 [place] Body Weight 166 % [place] Body Weight 90 Body Mass Index (BMI) 21.5 Weight Status Approriate GI Symptoms GI Symptoms None Last BM no record Difficult in: None Skin Integrity/Comment: not indicated Estimated Nutritional Goals BEE in Kcals: Using Current wt Calories/Kcals/Kg 25-30 Kcals Calculated 4101-2250 Protein: Using Current wt Protein g/k-1.2 Protein Calculated 68-82 Fluid: ml 1700-2040ml (1ml/kcal) Nutritional Problem 1. Problem Problem altered nutrition related labs Etiology chronic renal suff, hx of DM Signs/Symptoms: BUN 29, Cr 1.8, glucose 186, POC 267 Malnutrition Alert Protein-Calorie Malnutrition N/A Is there a minimum of two criteria No selected? Query Text:Check all the applicable criteria. A minimum of two criteria are recommended for diagnosis of either severe or non-severe malnutrition. Intervention/Recommendation Comments 1. Continue with [facility]-60gm diet as ordered. Monitor accucheck. 2. Monitor PO intake, wt, labs and skin integrity 3. F/U as moderate risk in 3-5 days, 01/26-01/28 Expected Outcomes/Goals Expected Outcomes/Goals 1. PO intake to meet at least 75% of nutritional needs. 2. Wt stability, skin to remain intact, labs to approach WNL.
[2018-02-06] MEDS ORDERED: chlorproMAZINE 25 mg/mL 2mL Amp IM STA (12:04)
[2018-02-06] MEDS ORDERED: chlorproMAZINE 25 mg/mL 2mL Amp ONE (12:04)
--- NOTE | 2018-02-06 15:35 | Progress Notes ---
DATE: 02/06/2018 Case was discussed with staff of patient and reviewed records. Apparently when I came here, they already have a discharge order to discharge him today. The patient will be apparently was accepted [facility]. The patient seems to be a little bit calmer. He is sleeping well, eating well. The way he is working and the way he is doing now, he could be managed at a lesser level of care. He denies any current intent to harm himself or anybody. He is on Thorazine 300 mg 3 times a day with no side effects, no sedation, no nausea, no extrapyramidal symptoms. Dr. Dhaliwal will follow up with him at [facility], so the patient seemed to be okay according to Dr. Dhaliwal to be discharged to a lesser level, who tell him last on 02/04/2018 and gave the order for discharge this morning and the patient will be discharged to a lesser level of care to follow up with Dr. Dhaliwal and follow up with him. JOB# [id number]
== END 2018-02-06 15:20 | DRG 885 ==
LOC: ER 16:58 → GERO2 19:20
PROVIDERS: ADMIT Psychiatry & Neurology Psychiatry; ATTEND Psychiatry & Neurology Psychiatry
DX: F20.0 Paranoid schizophrenia (principal); F02.81 Dementia in other diseases classified elsewhere, unspecified severity, with behavioral disturbance; N18.6 End stage renal disease; E87.1 Hypo-osmolality and hyponatremia; I13.2 Hypertensive heart and chronic kidney disease with heart failure and with stage 5 chronic kidney disease, or end stage renal disease; E11.22 Type 2 diabetes mellitus with diabetic chronic kidney disease; E78.5 Hyperlipidemia, unspecified; I50.9 Heart failure, unspecified; I25.10 Atherosclerotic heart disease of native coronary artery without angina pectoris; F31.9 Bipolar disorder, unspecified; J44.9 Chronic obstructive pulmonary disease, unspecified; F29 Unspecified psychosis not due to a substance or known physiological condition; G30.9 Alzheimer's disease, unspecified; Z88.8 Allergy status to other drugs, medicaments and biological substances; Z82.49 Family history of ischemic heart disease and other diseases of the circulatory system
CPT/HCPCS: 36415-UA; 80053-TC; 80061-TC; 80320-TC; 80329-TC; 82948-90; 83036-90; 84443-TC; 85025-TC; 86592-TC; 93005; J1815; J2060; J3230; Q0161; Z7610

== ENCOUNTER 2018-08-04 19:28 | Inpatient (IN) | payer MEDICARE, MEDICAID ==
--- NOTE | 2018-08-04 19:52 | ED Physician Chart ---
ED Chief Complaint/HPI - Patient Information Date Seen:: 08/04/18 Time Seen:: 19:46 Chief Complaint:: agitation History of Present Illness:: 58 yr old male from [facility] with agitation anxiety with dementia psychosis pt loud very agitated and grabs at people keeps calling doctor Allergies:: Allergies Allergy/AdvReac Type Severity Reaction Status Date / Time fluphenazine Allergy Verified 08/04/18 19:33 haloperidol [From Haldol] Allergy Verified 08/04/18 19:33 PROLIXIN Allergy Uncoded 12/21/15 16:57 ED Review of Systems - Review of Systems General/Constitutional: No fever Skin: No skin lesions Head: No headache Eyes: No loss of vision ENT: No earache Neck: No neck pain Cardio Vascular: No chest pain Pulmonary: No SOB GI: No nausea, No vomiting G/U: No dysuria Psychiatric: Anxiety Hematopoietic: No bruising Allergic/Immuno: No urticaria Neurological: No syncope ED Past Medical History - Past Medical History Obtainable: No Past Medical History: HTN, DM, Dyslipidemia (psychosis agitation), Dementia, Other Social History: Non Smoker, No Alcohol, No Drug Use Surgical History: None Family Medical History - Family Member Mother History Unknown: Yes Ethnicity: Unknown Living Status: Unknown Hx Family Cancer: (unknown) Hx Family Coronary Artery Disease: (unknown) Hx Family Congestive Heart Failure: (unknown) Hx Family Hypertension: (unknown) Hx Family Stroke: (unknown) Hx Family Diabetes: (unknown) Hx Family Seizures: (unknown) Hx Family Dementia: (unknown) Hx Family AIDS: (unknown) Hx Family HIV: No Hx Family COPD: (unknown) Hx Family Hepatitis: (unknown) Hx Family Psychiatric Problems: (unknown) Hx Family Tuberculosis: (unknown) ED Physical Exam - Physical Examination Other Gen/Cons comments:: pt agitated and constantly swaring does not stop talking and difficult to understand even after 2mg im ativan Head: Atraumatic Eyes: Lids, conjuctiva normal Skin: Nl inspection ENMT: External ears, nose nl Neck: Nontender Respiratory: Nl effort/Exclusion GI: No organomegaly ED Assessment - Assessment General Assessment: psychosis agitation dementia ED Septic Shock - . Is Septic Shock (SBP<90, OR Lactate>4 mmol\L) present?: No ED Reassessment (Disposition) - Diagnosis Diagnosis:: psychosis agitation dementia - Aftercare/Follow up Instructions Aftercare/Follow-Up Instructions:: Counseled pt regarding lab results/diagnosis & need follow up - Patient Disposition Discharge/Transfer:: Acute Care w/in this hosp Condition at Disposition:: Stable (agitated on arrival 2mg im given and still very difficult to control)
[2018-08-04 20:58] LABS: % BASOPHILS 0.2 % (0.0-2.0); % EOSINOPHILS 0.4 % (0.0-5.0); % LYMPHOCYTES 18.6 % (20.0-50.0); % MONOCYTES 11.4 % (2.0-10.0); % NEUTROPHILS 69.4 % (40.0-80.0); HEMATOCRIT 35.3 % (41.0-60); HEMOGLOBIN 12.2 gm/dL (12-16); LYMPHOCYTE ABSOLUTE 1.5 Th/cmm (1.5-3.0); MEAN CELL VOLUME 91.3 fl (80-99); MEAN CORPUSCULAR HEMOGLOBIN 31.5 pg (26.0-30.0); MEAN CORPUSCULAR HGB CONC 34.5 pg (28.0-36.0); MEAN PLATELET VOLUME 8.4 fl; MONOCYTE ABSOLUTE 0.9 Th/cmm (0.3-1.0); NEUTROPHILE ABSOLUTE 5.7 Th/cmm (1.8-8.0); PLATELET COUNT 200 Th/cmm (150-400); RED BLOOD COUNT 3.86 Mil/cmm (4.30-5.70); RED CELL DISTRIBUTION WIDTH 11.5 % (11.5-20.0); WHITE BLOOD COUNT 8.1 Th/cmm (4.8-10.8)
[2018-08-04 21:03] LABS: URINE BILIRUBIN NEGATIVE (NEGATIVE); URINE BLOOD LARGE (NEGATIVE); URINE GLUCOSE (UA) >=1000 mg/dL (NEGATIVE); URINE KETONE NEGATIVE (NEGATIVE); URINE LEUKOCYTE ESTERASE NEGATIVE (NEGATIVE); URINE MICROSCOPIC INDICATED? YES; URINE NITRATE NEGATIVE (NEGATIVE); URINE PH 5.5 (4.6 - 8.0); URINE PROTEIN 100 mg/dL (NEGATIVE); URINE SOURCE CLEAN C; URINE UROBILINOGEN 0.2 E.U./dL (0.2 - 1.0)
[2018-08-04 21:04] LABS: URINE CLARITY CLEAR (CLEAR); URINE COLOR YELLOW
[2018-08-04 21:08] LABS: URINE BACTERIA OCCASIONAL /hpf (NONE SEEN); URINE EPITHELIAL CELLS FEW /lpf (FEW); URINE WBC 0-2 /hpf (0-5)
[2018-08-04 21:14] LABS: ALB/GLOB RATIO 1.3 (1.0-1.8); ALBUMIN 3.5 gm/dL (4.2-5.5); ANION GAP 13.1 (7.0-16.0); BILIRUBIN,TOTAL 0.7 mg/dL (0.3-1.0); CALCIUM SERUM 9.8 mg/dL (8.6-10.3); CARBON DIOXIDE 23.2 mEq/L (21.0-31.0); CREATININE - SERUM 1.9 mg/dL (0.7-1.3); GFR AFRICAN-AMERICAN 47.4 ml/min (>90); GFR NON AFRICAN-AMERICAN 39.2 ml/min; POTASSIUM SERUM 4.3 mEq/L (3.5-5.1); TOTAL PROTEIN,SERUM 6.3 gm/dL (6.0-8.3)
[2018-08-04] MEDS ORDERED: Sodium Chloride 0.9% 1,000 ML IV ONE ×2 (21:27→22:54)
[2018-08-04] MEDS ORDERED: INSULIN ASPART, RECOMBINANT 100 UNITS/ML SUBQ SCH (21:45)
[2018-08-04] MEDS ORDERED: INSULIN ASPART, RECOMBINANT 100 UNITS/ML SUBQ ONE (21:50)
[2018-08-04] MEDS ORDERED: INSULIN HUMAN REGULAR 100 UNITS/ML UNIT SUBQ ONE (21:51)
[2018-08-05] MEDS ORDERED: INSULIN HUMAN REGULAR 100 UNITS/ML UNIT SUBQ ONE (00:29)
[2018-08-05] MEDS ORDERED: INSULIN HUMAN REGULAR 100 UNITS/ML UNIT ONE (00:31)
[2018-08-05 02:50] VITALS: BP 157/97
[2018-08-05] MEDS ORDERED: INSULIN HUMAN REGULAR 100 UNITS/ML UNIT SUBQ SCH (07:30)
[2018-08-05] MEDS ORDERED: INSULIN ASPART SLIDING SCALE 100 UNITS/ML UNIT SUBQ SCH ×2 (07:42→09:00)
[2018-08-05] MEDS ORDERED: Albuterol Nebulizer 2.5mg/3mL HHN PRN (07:49)
[2018-08-05] MEDS ORDERED: Ipratropium Neb 0.5 mg/2.5 mL UD IH PRN (07:49)
[2018-08-05] MEDS ORDERED: Sodium Chloride 0.9% 1,000 ML IV SCH (08:00)
[2018-08-05] MEDS ORDERED: Albuterol/Ipratropium Neb 3 ML AERS HHN PRN (08:09)
[2018-08-05] MEDS ORDERED: GLUCAGON HCl 1 MG KIT IM PRN (08:30)
[2018-08-05] MEDS ORDERED: Insulin Detemir 100 units/mL 10mL Vial SUBQ SCH (09:00)
[2018-08-05] MEDS ORDERED: Fenofibrate, Micronized 134 mg Cap PO SCH (09:00)
[2018-08-05] MEDS ORDERED: INSULIN ASPART, RECOMBINANT 100 UNITS/ML SUBQ SCH (11:30)
--- NOTE | 2018-08-05 13:35 | History and Physical ---
History of Present Illness - HPI Chief Complaint: agitation/dm out of control HPI: This is a 58-year old male who is a skilled nursing resident admitted to the [facility] due to agitation and elevated glucose level. Vital Signs: Last Vital Signs Temp 99.3 F 08/05/18 11:32 Pulse 113 08/05/18 11:32 Resp 18 08/05/18 11:32 BP 152/95 08/05/18 11:32 Pulse Ox 99 08/05/18 02:43 Past Medical History Other History: HTN, DM, Dyslipidemia, psychosis, agitation, Dementia Family Medical History - Family Member Mother History Unknown: Yes Ethnicity: Unknown Living Status: Unknown Hx Family Cancer: (unknown) Hx Family Coronary Artery Disease: (unknown) Hx Family Congestive Heart Failure: (unknown) Hx Family Hypertension: (unknown) Hx Family Stroke: (unknown) Hx Family Diabetes: (unknown) Hx Family Seizures: (unknown) Hx Family Dementia: (unknown) Hx Family AIDS: (unknown) Hx Family HIV: No Hx Family COPD: (unknown) Hx Family Hepatitis: (unknown) Hx Family Psychiatric Problems: (unknown) Hx Family Tuberculosis: (unknown) Social History Smoke: No Alcohol: None Drugs: None Lives: Jail - Medications Home Medications: Home Medication Medication Instructions Recorded Type Aspirin [Adult Low Dose Aspirin EC] 81 mg PO DAILY 01/22/18 History Clonazepam [Klonopin] 0.5 mg PO BID 01/22/18 History Glucagon,Human Recombinant 1 mg SUBQ ONCE PRN 01/22/18 History [Glucagon Emergency Kit] Lisinopril 1 tab PO 1300 01/22/18 History Fenofibrate,Micronized 134 mg PO DAILY 08/04/18 History [Fenofibrate] Insulin Aspart Sliding Scale See Protocol SUBQ TID 08/04/18 History [NovoLOG INSULIN SLIDING SCALE] chlorproMAZINE [Thorazine] 300 mg PO TID 08/04/18 History Acetaminophen [Tylenol] 650 mg PO Q4H PRN tab 08/05/18 Rx Albuterol/Ipratropium Neb [Duoneb 3 ml HHN Q2HRT PRN aers 08/05/18 Rx Neb] Insulin Aspart, Recombinant See Protocol SUBQ ACHS unit 08/05/18 Rx [NovoLOG] Insulin Detemir [Levemir Insulin] 34 units SUBQ BID vial 08/05/18 Rx Lisinopril [Zestril] 5 mg PO DAILY@1300 tab 08/05/18 Rx cloNIDine HCl [Catapres] 0.1 mg PO Q6H PRN tab 08/05/18 Rx levOCARNitine [Carnitor] 990 mg PO BID tab 08/05/18 Rx - Allergies Allergies/Adverse Reactions: Allergies Allergy/AdvReac Type Severity Reaction Status Date / Time fluphenazine Allergy Verified 08/04/18 19:33 haloperidol [From Haldol] Allergy Verified 08/04/18 19:33 PROLIXIN Allergy Uncoded 12/21/15 16:57 Review of Systems - Review of Systems Constitutional: Report: No Significant Eyes: Report: No Significant ENT: Report: No Significant Respiratory: Report: No Significant Cardiovascular: Report: No Significant Gastrointestinal: Report: No Significant Neurological: Report: No Significant Physical Exam - Physical Exam HEENT: Report: Ears Nose Throat within normal limits Neck: Report: Within normal limits Cardiovascular Systems: Report: +s1/s2 noted, Regular, Rate and Rhythm Respiratory: Report: Breath Sounds are within normal limits Abdomen: Report: Non-tender to palpation Back: Report: Inspection of back is within normal limits. Extremities: Report: Non-tender to palpation. Skin: Report: Color of skin is within normal limits, Warm, Dry, Other (abrasion on forehead) Neuro/Psych: Report: Mood affect is within normal limits - Lab Results All Lab Results last 24 hours: Laboratory Results - last 24 hr 08/04/18 08/04/18 08/04/18 19:56 20:40 20:40 WBC 8.1 RBC 3.86 L Hgb 12.2 Hct 35.3 L MCV 91.3 MCH 31.5 H MCHC Differential 34.5 RDW 11.5 Plt Count 200 MPV 8.4 Neutrophils % 69.4 Lymphocytes % 18.6 L Monocytes % 11.4 H Eosinophils % 0.4 Basophils % 0.2 Sodium 128 L Potassium 4.3 Chloride 96 L Carbon Dioxide 23.2 Anion Gap 13.1 BUN 39 H Creatinine 1.9 H Est GFR ( Amer) 47.4 Est GFR (Non-Af Amer) 39.2 BUN/Creatinine Ratio 20.5 Glucose 568 H* POC Glucose Calcium 9.8 Total Bilirubin 0.7 AST 153 H ALT 90 H Alkaline Phosphatase 39 Total Protein 6.3 Albumin 3.5 L Globulin 2.8 Albumin/Globulin Ratio 1.3 Urine Source CLEAN C Urine Color YELLOW Urine Clarity CLEAR Urine pH 5.5 Ur Specific [place] 1.015 Urine Protein 100 H Urine Glucose (UA) >=1000 H Urine Ketones NEGATIVE Urine Blood LARGE H Urine Nitrate NEGATIVE Urine Bilirubin NEGATIVE Urine Urobilinogen 0.2 Ur Leukocyte Esterase NEGATIVE Urine RBC 2-5 H Urine WBC 0-2 Ur Epithelial Cells FEW Urine Bacteria OCCASIONAL Serum Ketones 08/04/18 08/05/18 08/05/18 20:40 00:04 07:55 WBC RBC Hgb Hct MCV MCH MCHC Differential RDW Plt Count MPV Neutrophils % Lymphocytes % Monocytes % Eosinophils % Basophils % Sodium Potassium Chloride Carbon Dioxide Anion Gap BUN Creatinine Est GFR ( Amer) Est GFR (Non-Af Amer) BUN/Creatinine Ratio Glucose POC Glucose 324 H 242 H Calcium Total Bilirubin AST ALT Alkaline Phosphatase Total Protein Albumin Globulin Albumin/Globulin Ratio Urine Source Urine Color Urine Clarity Urine pH Ur Specific [place] Urine Protein Urine Glucose (UA) Urine Ketones Urine Blood Urine Nitrate Urine Bilirubin Urine Urobilinogen Ur Leukocyte Esterase Urine RBC Urine WBC Ur Epithelial Cells Urine Bacteria Serum Ketones NEGATIVE - Assessment Assessment: out of control dm HTN Dyslipidemia agitation Dementia - Plan Plan: monitor glucose with high dose sliding scale fall precautions psych consultation follow up labs in am continue current plan of care
[2018-08-05] MEDS ORDERED: Influenza Vaccine (5 yr & older) 0.5 ml Syr IM ONE (14:00)
== END 2018-08-05 12:20 | DRG 638 ==
LOC: ER 19:28 → MSI 08-05 01:20 → UNDOADMIN 08-05 01:20 → GERO 08-05 01:20
PROVIDERS: ADMIT Internal Medicine; ATTEND Internal Medicine
DX: E11.65 Type 2 diabetes mellitus with hyperglycemia (principal); E87.1 Hypo-osmolality and hyponatremia; I10 Essential (primary) hypertension; F03.90 Unspecified dementia, unspecified severity, without behavioral disturbance, psychotic disturbance, mood disturbance, and anxiety; F41.9 Anxiety disorder, unspecified; E78.5 Hyperlipidemia, unspecified; F29 Unspecified psychosis not due to a substance or known physiological condition; Z79.4 Long term (current) use of insulin; Z88.8 Allergy status to other drugs, medicaments and biological substances
CPT/HCPCS: 36415-UA; 80053-TC; 81001-TC; 82010-TC; 82948-90; 83036-90; 85025-TC; 93005; 94760; 96374; J1815; J2060; J7030; Q0161; Z7610

== ENCOUNTER 2018-08-05 12:14 | Inpatient (IN) | payer MEDICARE, MEDICAID ==
[2018-08-05 12:38] VITALS: BP 152/95
[2018-08-05] MEDS ORDERED: GLUCAGON HCl 1 MG KIT SUBQ PRN (12:55)
[2018-08-05] MEDS ORDERED: Albuterol/Ipratropium Neb 3 ML AERS HHN PRN (12:55)
--- NOTE | 2018-08-05 13:28 | History and Physical ---
History of Present Illness - HPI Vital Signs: Last Vital Signs Temp Pulse Resp BP 152/95 08/05/18 12:38 Pulse Ox Family Medical History - Family Member Mother History Unknown: Yes Ethnicity: Unknown Living Status: Unknown Hx Family Cancer: (unknown) Hx Family Coronary Artery Disease: (unknown) Hx Family Congestive Heart Failure: (unknown) Hx Family Hypertension: (unknown) Hx Family Stroke: (unknown) Hx Family Diabetes: (unknown) Hx Family Seizures: (unknown) Hx Family Dementia: (unknown) Hx Family AIDS: (unknown) Hx Family HIV: No Hx Family COPD: (unknown) Hx Family Hepatitis: (unknown) Hx Family Psychiatric Problems: (unknown) Hx Family Tuberculosis: (unknown) - Medications Home Medications: Home Medication Medication Instructions Recorded Type Aspirin [Adult Low Dose Aspirin EC] 81 mg PO DAILY 01/22/18 History Clonazepam [Klonopin] 0.5 mg PO BID 01/22/18 History Glucagon,Human Recombinant 1 mg SUBQ ONCE PRN 01/22/18 History [Glucagon Emergency Kit] Lisinopril 1 tab PO 1300 01/22/18 History Fenofibrate,Micronized 134 mg PO DAILY 08/04/18 History [Fenofibrate] Insulin Aspart Sliding Scale See Protocol SUBQ TID 08/04/18 History [NovoLOG INSULIN SLIDING SCALE] chlorproMAZINE [Thorazine] 300 mg PO TID 08/04/18 History Acetaminophen [Tylenol] 650 mg PO Q4H PRN tab 08/05/18 Rx Albuterol/Ipratropium Neb [Duoneb 3 ml HHN Q2HRT PRN aers 08/05/18 Rx Neb] Insulin Aspart, Recombinant See Protocol SUBQ ACHS unit 08/05/18 Rx [NovoLOG] Insulin Detemir [Levemir Insulin] 34 units SUBQ BID vial 08/05/18 Rx Lisinopril [Zestril] 5 mg PO DAILY@1300 tab 08/05/18 Rx cloNIDine HCl [Catapres] 0.1 mg PO Q6H PRN tab 08/05/18 Rx levOCARNitine [Carnitor] 990 mg PO BID tab 08/05/18 Rx - Allergies Allergies/Adverse Reactions: Allergies Allergy/AdvReac Type Severity Reaction Status Date / Time fluphenazine Allergy Verified 08/04/18 19:33 haloperidol [From Haldol] Allergy Verified 08/04/18 19:33 PROLIXIN Allergy Uncoded 12/21/15 16:57
[2018-08-05] MEDS ORDERED: Maalox 30 mL Cup PO PRN (15:00)
[2018-08-05] MEDS ORDERED: Magnesium Hydroxide (MOM) 30 mL UDC PO PRN (15:00)
[2018-08-05] MEDS ORDERED: INSULIN ASPART, RECOMBINANT 100 UNITS/ML SUBQ SCH (16:30)
[2018-08-05] MEDS: INSULIN ASPART SLIDING SCALE 100 UNITS/ML UNIT SUBQ SCH ×2 (16:38→21:09)
[2018-08-05] MEDS: Insulin Detemir 100 units/mL 10mL Vial SUBQ SCH (16:38)
[2018-08-05] MEDS ORDERED: Pneumococcal Vaccine 0.5 mL Vial IM ONE (20:00)
[2018-08-06] MEDS: INSULIN ASPART SLIDING SCALE 100 UNITS/ML UNIT SUBQ SCH ×4 (06:33→22:49)
[2018-08-06] MEDS: Fenofibrate, Micronized 134 mg Cap PO SCH (08:16)
[2018-08-06] MEDS: Insulin Detemir 100 units/mL 10mL Vial SUBQ SCH ×2 (08:17→17:25)
--- NOTE | 2018-08-06 10:12 | Psychiatric Evaluation ---
DATE OF SERVICE: PATIENT'S AGE: 58-year-old. SEX: Male. PHYSICIAN: Dr. Dhaliwal. CHIEF COMPLAINT: Severe agitation and irritable mood. HISTORY OF PRESENT ILLNESS: The patient is a 58-year-old male with history of schizoaffective disorder. The patient has been under my care in [facility]. He has been very irritable and agitated in the senior living and staff has been having difficulty with him following any of their directions. The patient also was taking Thorazine in a dose of 300 mg 3 times a day and also Risperdal in a dose of 2 mg twice a day. The patient also has been having problems with his mood and problem with following any of staff directions and the patient was admitted to the hospital to adjust psychotropic medications. The patient continued to be extremely irritable and extremely agitated. Also is still in angry mood. The patient also is yelling and screaming and have difficulty following any directions. He also is yelling and screaming and have disorganized thoughts and actively responding. PAST PSYCHIATRIC HISTORY: The patient has history of multiple psychiatric hospitalizations for treatment of psychosis and schizoaffective disorder. PAST MEDICAL HISTORY: The patient has insulin-dependent diabetes mellitus as well as chronic obstructive pulmonary disease. SOCIAL HISTORY: The patient lives in [facility]. No known alcohol or drug use. ALLERGIES: No known allergies. MENTAL STATUS EXAMINATION: The patient appears his stated age. Irritable mood. Angry. Anxious. Restless. Disorganized thoughts. Unable to carry on coherent conversation. Continue yelling and screaming. The patient is alert but unable to assess his orientation or memory at this time because of his severe agitation and irritability. ASSESSMENT: The patient is severely angry and in irritable mood. PRIMARY DIAGNOSIS: Schizoaffective disorder, bipolar type, severe, with psychotic features. MEDICAL DIAGNOSES: 1. Chronic obstructive pulmonary disease. 2. Insulin-dependent diabetes mellitus. 3. Hypertension. TREATMENT PLAN: We will monitor his behavior and his condition closely. Also, we will add Haldol with plan to change to Haldol Decanoate injection when known allergic reaction is established and that is for better compliance with medications and seemed that Thorazine alone is not helping the patient as much. Also, we will work on behavioral modification. ESTIMATED LENGTH OF STAY: 5-7 days. THE PATIENT'S STRENGTHS AND WEAKNESSES: The patient's strength is not clear at this time. Weaknesses are his poor judgment and poor impulse control. AFTER DISCHARGE PLAN: Outpatient treatment and followup will continue as an outpatient. CRITERIA FOR DISCHARGE: The patient will be calmer and will be able to follow instructions and directions. [facility]# [id number]
--- NOTE | 2018-08-06 13:21 | Internal Medicine Prog Note ---
Internal Medicine Subjective - Subjective Service Date: 08/06/18 (refuses off and on to check glucose) Patient seen and examined:: with staff Patient is:: awake Per staff patient has:: tolerating meds Internal Medicine Objective - Results Recent Labs: Laboratory Last Values POC Glucose 176 MG/DL (70 - 105) H 08/06/18 05:51 - Physical Exam Vitals and I&O: Vital Signs Temp 97.8 F 08/05/18 14:59 Pulse 124 08/05/18 14:59 Resp 22 08/05/18 23:53 BP 152/95 08/05/18 12:38 Pulse Ox 0 08/05/18 14:59 Intake & Output 08/05/18 08/06/18 08/06/18 18:59 06:59 18:59 Intake Total 120 Balance 120 Intake: Oral 120 Other: # Voids 1 3 # Bowel Movements 0 Weight Source Estimated Active Medications: Current Medications Acetaminophen (Tylenol) 650 mg PO Q4H PRN PRN Reason: Pain Or Fever above 101 Stop: 10/04/18 12:54 Al Hydrox/Mg Hydrox/Simethicone (Maalox) 30 ml PO Q4HR PRN PRN Reason: GI DISTRESS Stop: 10/04/18 14:59 Albuterol/Ipratropium (Duoneb Neb) 3 ml HHN Q2HRT PRN PRN Reason: Shortness of Breath Stop: 10/04/18 12:54 Aspirin (Ecotrin) 81 mg PO DAILY [facility] Stop: 10/05/18 08:59 Last Admin: 08/06/18 08:16 Dose: 81 mg Chlorpromazine (Thorazine) 300 mg PO TID [facility] Stop: 10/04/18 20:59 Last Admin: 08/06/18 08:17 Dose: 300 mg Clonazepam (Klonopin) 1 mg PO BID CORIE; Protocol Stop: 10/05/18 08:59 Last Admin: 08/06/18 08:16 Dose: 1 mg Fenofibrate (Tricor) 134 mg PO DAILY [facility] Stop: 10/05/18 08:59 Last Admin: 08/06/18 08:16 Dose: 134 mg Glucagon (Glucagen) 1 mg SUBQ PRN PRN PRN Reason: BS BELOW 60 Stop: 10/04/18 12:54 Haloperidol (Haldol) 5 mg PO BID [facility]; Protocol Stop: 10/05/18 08:59 Insulin Aspart (Novolog Insulin Sliding Scale) 0 units SUBQ ACHS [facility]; Protocol Stop: 10/04/18 16:29 Last Admin: 08/06/18 11:34 Dose: Not Given Insulin Detemir (Levemir Insulin) 34 units SUBQ BID [facility]; Protocol Stop: 10/04/18 16:59 Last Admin: 08/06/18 08:17 Dose: Not Given Lisinopril (Zestril) 5 mg PO 1300 CORIE Stop: 10/04/18 12:59 Last Admin: 08/05/18 13:26 Dose: Not Given Lorazepam (Ativan) 0.5 mg PO Q6HR PRN; Protocol PRN Reason: Agitation Stop: 10/04/18 15:00 Last Admin: 08/06/18 08:16 Dose: 0.5 mg Magnesium Hydroxide (Milk Of Magnesia) 30 ml PO HS PRN PRN Reason: Constipation Zolpidem Tartrate (Ambien) 5 mg PO HS PRN PRN Reason: Insomnia Stop: 10/04/18 14:59 General: alert HEENT: NC/AT Neck: Supple Lungs: CTAB Cardiovascular: RRR, Normal S1, Normal S2, without murmur Abdomen: soft, non-tender, non-distended, positive bowel sound Neurological: alert Internal Medicine Assmt/Plan - Assessment Assessment: out of control dm HTN Dyslipidemia agitation Dementia - Plan Plan: monitor s/sx of hypo/hyperglycemia fall precautions continue current plan of care Nutritional Asmnt/Malnutr-PDOC - Dietary Evaluation Malnutrition Findings (Please click <Entered> for more info): Nutritional Asmnt/Malnutrition Start: 08/05/18 16: 23 Text: Status: Complete Freq: Protocol: Document 08/05/18 16:23 LCHENG (Rec: 08/05/18 16:33 [email or web address]) Nutritional Asmnt/Malnutrition Patient General Information Nutritional Screening High Risk Consult Diagnosis psychosis Pertinent Medical Hx/Surgical Hx HTN, DM, dyslipidemia, psychosis agitation, dementia Subjective Information [place] is transfered from [place] this afternoon. Visited pt in [place] this morning, pt seen very confused and agitated, not able to communicate. Consult received for diabetic, glucose level 568 at admission. Per EMR, PO consumed 100% of lunch today. Current Diet Order/ Nutrition Support CCHO 45g protein Pertinent Medications glucagen, novolog, levemir Pertinent Labs 08/04 glucose 568, POC 242 Nutritional Hx/Data Height 5 ft 10 in Height (Calculated Centimeters) 177.8 Current Weight (lbs) 150 lb Weight (Calculated Kilograms) 68.0 Weight (Calculated Grams) 16203.9 [place] Body Weight 166 Body Mass Index (BMI) 21.5 Weight Status Approriate GI Symptoms GI Symptoms None Last BM not indicated Difficult in: None Skin Integrity/Comment: amy [place] Current %PO Good (75-100%) Estimated Nutritional Goals BEE in Kcals: Using Current wt Calories/Kcals/Kg 25-30 Kcals Calculated 8552-7365 Protein: Using Current wt Protein g/k-1.2 Protein Calculated 68-82 Fluid: ml 1700-2040ml (1ml/kcal) Nutritional Problem 1. Problem Problem altered nutrition related labs Etiology hx of DM Signs/Symptoms: glucose 568, POC 242 Malnutrition Alert Is there a minimum of two criteria No selected? Query Text:Check all the applicable criteria. A minimum of two criteria are recommended for diagnosis of either severe or non-severe malnutrition. Intervention/Recommendation Comments 1. Continue with [facility] 45gm diet as ordered. Will send double protein and non-starch veggies per RN request. 2. Monitor PO intake, wt, labs and skin integrity 3. F/U as high risk in 2-3 days, 08/07-08/08 Expected Outcomes/Goals Expected Outcomes/Goals 1. PO intake to meet at least 75% of nutritional needs. 2. Wt stability, skin to remain intact, labs to approach WNL.
[2018-08-07] MEDS: INSULIN ASPART SLIDING SCALE 100 UNITS/ML UNIT SUBQ SCH ×4 (08:33→21:16)
[2018-08-07] MEDS: Fenofibrate, Micronized 134 mg Cap PO SCH (09:13)
[2018-08-07] MEDS: Insulin Detemir 100 units/mL 10mL Vial SUBQ SCH ×2 (10:11→18:06)
--- NOTE | 2018-08-07 13:22 | Internal Medicine Prog Note ---
Internal Medicine Subjective - Subjective Service Date: 08/07/18 Patient seen and examined:: with staff Patient is:: awake Per staff patient has:: tolerating meds Internal Medicine Objective - Results Recent Labs: Laboratory Last Values POC Glucose 434 MG/DL (70 - 105) H 08/07/18 12:03 - Physical Exam Vitals and I&O: Vital Signs Temp 98.0 F 08/06/18 14:00 Pulse 91 08/06/18 14:00 Resp 20 08/06/18 19:55 BP 158/61 08/06/18 14:00 Pulse Ox 97 08/06/18 14:00 Intake & Output 08/06/18 08/07/18 08/07/18 18:59 06:59 18:59 Intake Total 1200 150 Output Total 2 Balance 1200 148 Intake: Oral 1200 150 Output: Urine 2 Other: # Bowel Movements 1 Active Medications: Current Medications Acetaminophen (Tylenol) 650 mg PO Q4H PRN PRN Reason: Pain Or Fever above 101 Stop: 10/04/18 12:54 Last Admin: 08/07/18 09:15 Dose: 650 mg Al Hydrox/Mg Hydrox/Simethicone (Maalox) 30 ml PO Q4HR PRN PRN Reason: GI DISTRESS Stop: 10/04/18 14:59 Albuterol/Ipratropium (Duoneb Neb) 3 ml HHN Q2HRT PRN PRN Reason: Shortness of Breath Stop: 10/04/18 12:54 Aspirin (Ecotrin) 81 mg PO DAILY [facility] Stop: 10/05/18 08:59 Last Admin: 08/07/18 09:15 Dose: 81 mg Chlorpromazine (Thorazine) 300 mg PO TID [facility] Stop: 10/04/18 20:59 Last Admin: 08/07/18 09:13 Dose: 300 mg Clonazepam (Klonopin) 1 mg PO BID [facility]; Protocol Stop: 10/05/18 08:59 Last Admin: 08/07/18 09:15 Dose: 1 mg Fenofibrate (Tricor) 134 mg PO DAILY [facility] Stop: 10/05/18 08:59 Last Admin: 08/07/18 09:13 Dose: 134 mg Glipizide (Glucotrol) 5 mg PO BID [facility] Stop: 10/06/18 16:59 Glucagon (Glucagen) 1 mg SUBQ PRN PRN PRN Reason: BS BELOW 60 Stop: 10/04/18 12:54 Haloperidol (Haldol) 5 mg PO BID [facility]; Protocol Stop: 10/05/18 08:59 Last Admin: 08/07/18 09:15 Dose: 5 mg Insulin Aspart (Novolog Insulin Sliding Scale) 0 units SUBQ ACHS [facility]; Protocol Stop: 10/04/18 16:29 Last Admin: 08/07/18 12:17 Dose: 12 units Insulin Detemir (Levemir Insulin) 34 units SUBQ BID [facility]IE; Protocol Stop: 10/04/18 16:59 Last Admin: 08/07/18 10:11 Dose: 34 units Lisinopril (Zestril) 5 mg PO 1300 [facility] Stop: 10/04/18 12:59 Last Admin: 08/06/18 13:30 Dose: Not Given Lorazepam (Ativan) 0.5 mg PO Q6HR PRN; Protocol PRN Reason: Agitation Stop: 10/04/18 15:00 Last Admin: 08/07/18 04:23 Dose: 0.5 mg Magnesium Hydroxide (Milk Of Magnesia) 30 ml PO HS PRN PRN Reason: Constipation Zolpidem Tartrate (Ambien) 5 mg PO HS PRN PRN Reason: Insomnia Stop: 10/04/18 14:59 General: alert HEENT: NC/AT Neck: Supple Lungs: CTAB Cardiovascular: RRR, Normal S1, Normal S2, without murmur Abdomen: soft, non-tender, non-distended, positive bowel sound Neurological: alert Internal Medicine Assmt/Plan - Assessment Assessment: out of control dm HTN Dyslipidemia agitation Dementia - Plan Plan: monitor s/sx of hypo/hyperglycemia fall precautions continue current plan of care Nutritional Asmnt/Malnutr-PDOC - Dietary Evaluation Malnutrition Findings (Please click <Entered> for more info): Nutritional Asmnt/Malnutrition Start: 08/05/18 16: 23 Text: Status: Complete Freq: Protocol: Document 08/05/18 16:23 LCBRUNAG (Rec: 08/05/18 16:33 [email or web address] [email or web address]) Nutritional Asmnt/Malnutrition Patient General Information Nutritional Screening High Risk Consult Diagnosis psychosis Pertinent Medical Hx/Surgical Hx HTN, DM, dyslipidemia, psychosis agitation, dementia Subjective Information Pt is transfered from [place] this afternoon. Visited pt in [place] this morning, pt seen very confused and agitated, not able to communicate. Consult received for diabetic, glucose level 568 at admission. Per EMR, PO consumed 100% of lunch today. Current Diet Order/ Nutrition Support CCHO 45g protein Pertinent Medications glucagen, novolog, levemir Pertinent Labs 08/04 glucose 568, POC 242 Nutritional Hx/Data Height 5 ft 10 in Height (Calculated Centimeters) 177.8 Current Weight (lbs) 150 lb Weight (Calculated Kilograms) 68.0 Weight (Calculated Grams) 74178.9 [place] Body Weight 166 Body Mass Index (BMI) 21.5 Weight Status Approriate GI Symptoms GI Symptoms None Last BM not indicated Difficult in: None Skin Integrity/Comment: amy 14 Current %PO Good (75-100%) Estimated Nutritional Goals BEE in Kcals: Using Current wt Calories/Kcals/Kg 25-30 Kcals Calculated 0813-7310 Protein: Using Current wt Protein g/k-1.2 Protein Calculated 68-82 Fluid: ml 1700-2040ml (1ml/kcal) Nutritional Problem 1. Problem Problem altered nutrition related labs Etiology hx of DM Signs/Symptoms: glucose 568, POC 242 Malnutrition Alert Is there a minimum of two criteria No selected? Query Text:Check all the applicable criteria. A minimum of two criteria are recommended for diagnosis of either severe or non-severe malnutrition. Intervention/Recommendation Comments 1. Continue with CCHO 45gm diet as ordered. Will send double protein and non-starch veggies per RN request. 2. Monitor PO intake, wt, labs and skin integrity 3. F/U as high risk in 2-3 days, 08/07-08/08 Expected Outcomes/Goals Expected Outcomes/Goals 1. PO intake to meet at least 75% of nutritional needs. 2. Wt stability, skin to remain intact, labs to approach WNL.
--- NOTE | 2018-08-07 22:38 | Progress Notes ---
DATE: SUBJECTIVE: Chart reviewed and the patient interviewed. Also discussed the patient's condition with the staff and reviewed records and labs. The patient is still severely agitated and is still in irritable mood. The patient also is still angry and is still unable to carry on coherent conversation. He also still needs lots of redirections and gets agitated when staff tried to redirect him. Otherwise, the patient is felt to be cooperative and compliant with taking the patient with no side effect of medications. ASSESSMENT: The patient is still psychotic and agitated. TREATMENT PLAN: We will continue to monitor his behavior and his condition closely. Also continue adjusting psychotropic medications and work on behavioral modifications. JOB# [id number]
[2018-08-08] MEDS: INSULIN ASPART SLIDING SCALE 100 UNITS/ML UNIT SUBQ SCH ×4 (06:35→21:15)
--- NOTE | 2018-08-08 06:40 | Progress Notes ---
DATE: 08/08/2018 PSYCHIATRIC PROGRESS NOTE SUBJECTIVE: Chart reviewed and the patient interviewed. Also discussed the patient's condition with the staff and reviewed records and labs. The patient is still severely agitated and is still in angry and in irritable mood. The patient also did not sleep most of last night. The patient also is still restless and also still having difficulty with his mood. Otherwise, the patient did not get his Thorazine yet because it is not available in the pharmacy and staff cannot get it. The patient is still hitting staff and he is still yelling and screaming at them and they cannot control his behavior. ASSESSMENT: The patient is still aggressive and agitated. TREATMENT PLAN: We will increase Haldol to 10 mg twice a day. Also, we will try to get Thorazine for the patient in order to complete his treatment and continue to take his medications and also continue to work on behavioral modification. JOB# [id number]
[2018-08-08] MEDS: Fenofibrate, Micronized 134 mg Cap PO SCH (08:32)
[2018-08-08] MEDS: Insulin Detemir 100 units/mL 10mL Vial SUBQ SCH ×2 (08:47→17:38)
--- NOTE | 2018-08-08 12:50 | Internal Medicine Prog Note ---
Internal Medicine Subjective - Subjective Service Date: 08/08/18 Patient is:: awake Per staff patient has:: tolerating meds Internal Medicine Objective - Results Recent Labs: Laboratory Last Values POC Glucose 425 MG/DL (70 - 105) H 08/08/18 11:43 - Physical Exam Vitals and I&O: Vital Signs Temp 97.8 F 08/08/18 06:18 Pulse 102 08/08/18 06:18 Resp 20 08/08/18 06:18 BP 155/85 08/08/18 06:18 Pulse Ox 97 08/08/18 06:18 Intake & Output 08/07/18 08/08/18 08/08/18 18:59 06:59 18:59 Intake Total 1100 360 Balance 1100 360 Intake: Oral 1100 360 Other: # Voids 3 2 Active Medications: Current Medications Acetaminophen (Tylenol) 650 mg PO Q4H PRN PRN Reason: Pain Or Fever above 101 Stop: 10/04/18 12:54 Last Admin: 08/07/18 09:15 Dose: 650 mg Al Hydrox/Mg Hydrox/Simethicone (Maalox) 30 ml PO Q4HR PRN PRN Reason: GI DISTRESS Stop: 10/04/18 14:59 Albuterol/Ipratropium (Duoneb Neb) 3 ml HHN Q2HRT PRN PRN Reason: Shortness of Breath Stop: 10/04/18 12:54 Aspirin (Ecotrin) 81 mg PO DAILY [facility] Stop: 10/05/18 08:59 Last Admin: 08/08/18 08:33 Dose: 81 mg Chlorpromazine (Thorazine) 300 mg PO TID [facility] Stop: 10/04/18 20:59 Last Admin: 08/08/18 08:32 Dose: 300 mg Clonazepam (Klonopin) 1 mg PO BID [facility]; Protocol Stop: 10/05/18 08:59 Last Admin: 08/08/18 08:33 Dose: 1 mg Fenofibrate (Tricor) 134 mg PO DAILY [facility] Stop: 10/05/18 08:59 Last Admin: 08/08/18 08:32 Dose: 134 mg Glipizide (Glucotrol) 5 mg PO BID [facility] Stop: 10/06/18 16:59 Last Admin: 08/08/18 08:33 Dose: 5 mg Glucagon (Glucagen) 1 mg SUBQ PRN PRN PRN Reason: BS BELOW 60 Stop: 10/04/18 12:54 Haloperidol (Haldol) 10 mg PO BID [facility]; Protocol Stop: 10/07/18 08:59 Last Admin: 08/08/18 08:32 Dose: 10 mg Insulin Aspart (Novolog Insulin Sliding Scale) 0 units SUBQ ACHS [facility]; Protocol Stop: 10/04/18 16:29 Last Admin: 08/08/18 12:00 Dose: 12 units Insulin Detemir (Levemir Insulin) 34 units SUBQ BID [facility]; Protocol Stop: 10/04/18 16:59 Last Admin: 08/08/18 08:47 Dose: 34 units Lisinopril (Zestril) 5 mg PO 1300 [facility] Stop: 10/04/18 12:59 Last Admin: 08/07/18 13:02 Dose: Not Given Lorazepam (Ativan) 0.5 mg PO Q6HR PRN; Protocol PRN Reason: Agitation Stop: 10/04/18 15:00 Last Admin: 08/08/18 02:55 Dose: 0.5 mg Magnesium Hydroxide (Milk Of Magnesia) 30 ml PO HS PRN PRN Reason: Constipation Zolpidem Tartrate (Ambien) 5 mg PO HS PRN PRN Reason: Insomnia Stop: 10/04/18 14:59 Last Admin: 08/08/18 02:55 Dose: 5 mg General: alert HEENT: NC/AT Neck: Supple Lungs: CTAB Cardiovascular: RRR, Normal S1, Normal S2, without murmur Abdomen: soft, non-tender, non-distended, positive bowel sound Neurological: alert Internal Medicine Assmt/Plan - Assessment Assessment: out of control dm HTN Dyslipidemia agitation Dementia - Plan Plan: monitor s/sx of hypo/hyperglycemia fall precautions continue current plan of care Nutritional Asmnt/Malnutr-PDOC - Dietary Evaluation Malnutrition Findings (Please click <Entered> for more info): Nutritional Asmnt/Malnutrition Start: 08/05/18 16: 23 Text: Status: Complete Freq: Protocol: Document 08/05/18 16:23 DELLAG (Rec: 08/05/18 16:33 DELLAG [email or web address]) Nutritional Asmnt/Malnutrition Patient General Information Nutritional Screening High Risk Consult Diagnosis psychosis Pertinent Medical Hx/Surgical Hx HTN, DM, dyslipidemia, psychosis agitation, dementia Subjective Information [place] this [place]. Visited pt in [place] this morning, pt seen very confused and agitated, not able to communicate. Consult received for diabetic, glucose level 568 at admission. Per EMR, PO consumed 100% of lunch today. Current Diet Order/ Nutrition Support CCHO 45g protein Pertinent Medications glucagen, novolog, levemir Pertinent Labs 08/04 glucose 568, POC 242 Nutritional Hx/Data Height 5 ft 10 in Height (Calculated Centimeters) 177.8 Current Weight (lbs) 150 lb Weight (Calculated Kilograms) 68.0 Weight (Calculated Grams) 08233.9 [place] Body Weight 166 Body Mass Index (BMI) 21.5 Weight Status Approriate GI Symptoms GI Symptoms None Last BM not indicated Difficult in: None Skin Integrity/Comment: amy De La Paz Current %PO Good (75-100%) Estimated Nutritional Goals BEE in Kcals: Using Current wt Calories/Kcals/Kg 25-30 Kcals Calculated 8949-9391 Protein: Using Current wt Protein g/k-1.2 Protein Calculated 68-82 Fluid: ml 1700-2040ml (1ml/kcal) Nutritional Problem 1. Problem Problem altered nutrition related labs Etiology hx of DM Signs/Symptoms: glucose 568, POC 242 Malnutrition Alert Is there a minimum of two criteria No selected? Query Text:Check all the applicable criteria. A minimum of two criteria are recommended for diagnosis of either severe or non-severe malnutrition. Intervention/Recommendation Comments 1. [facility]. Will send double protein and non-starch veggies per RN request. 2. Monitor PO intake, wt, labs and skin integrity 3. F/U as high risk in 2-3 days, 08/07-08/08 Expected Outcomes/Goals Expected Outcomes/Goals 1. PO intake to meet at least 75% of nutritional needs. 2. Wt stability, skin to remain intact, labs to approach WNL.
[2018-08-09] MEDS: INSULIN ASPART SLIDING SCALE 100 UNITS/ML UNIT SUBQ SCH ×4 (06:41→22:00)
[2018-08-09] MEDS: Fenofibrate, Micronized 134 mg Cap PO SCH (09:30)
[2018-08-09] MEDS: Insulin Detemir 100 units/mL 10mL Vial SUBQ SCH ×2 (09:39→17:21)
--- NOTE | 2018-08-09 19:44 | Progress Notes ---
DATE: 08/09/2018 SUBJECTIVE: Chart reviewed and the patient interviewed. Also, discussed the patient's condition with the staff and reviewed the records and labs. The patient is still severely agitated and in irritable mood. The patient also is still yelling and screaming and still has difficulty with his mood. He also is still fighting with the staff and he still needs lots of redirections with difficulty following directions. Otherwise, the patient is compliant with taking his medications. Thorazine is back and will discontinue Haldol. The patient saying that he is allergic to HALDOL, but not clear. The patient does not like Haldol and seemed that he just saying he is allergic to HALDOL in order not to take it. ASSESSMENT: The patient is still agitated and irritable. TREATMENT PLAN: Monitor his behavior and his condition closely and continue to adjust psychotropic medications and work on his poor impulse control. JOB# [id number]
[2018-08-10] MEDS: INSULIN ASPART SLIDING SCALE 100 UNITS/ML UNIT SUBQ SCH ×4 (07:03→21:02)
[2018-08-10] MEDS: Fenofibrate, Micronized 134 mg Cap PO SCH (09:14)
[2018-08-10] MEDS: Insulin Detemir 100 units/mL 10mL Vial SUBQ SCH ×2 (09:19→17:14)
--- NOTE | 2018-08-10 15:22 | Internal Medicine Prog Note ---
Internal Medicine Subjective - Subjective Service Date: 08/10/18 Patient is:: awake Per staff patient has:: tolerating meds Internal Medicine Objective - Results Recent Labs: Laboratory Last Values POC Glucose 224 MG/DL (70 - 105) H 08/10/18 11:55 - Physical Exam Vitals and I&O: Vital Signs Temp 98.2 F 08/10/18 14:00 Pulse 91 08/10/18 14:00 Resp 18 08/10/18 14:00 BP 157/73 08/10/18 14:00 Pulse Ox 97 08/10/18 14:00 Intake & Output 08/09/18 08/10/18 08/10/18 18:59 06:59 18:59 Intake Total 1600 120 Balance 1600 120 Intake: Oral 1600 120 Other: # Voids 4 3 # Bowel Movements 1 1 Active Medications: Current Medications Acetaminophen (Tylenol) 650 mg PO Q4H PRN PRN Reason: Pain Or Fever above 101 Stop: 10/04/18 12:54 Last Admin: 08/07/18 09:15 Dose: 650 mg Al Hydrox/Mg Hydrox/Simethicone (Maalox) 30 ml PO Q4HR PRN PRN Reason: GI DISTRESS Stop: 10/04/18 14:59 Albuterol/Ipratropium (Duoneb Neb) 3 ml HHN Q2HRT PRN PRN Reason: Shortness of Breath Stop: 10/04/18 12:54 Aspirin (Ecotrin) 81 mg PO DAILY [facility] Stop: 10/05/18 08:59 Last Admin: 08/10/18 09:14 Dose: 81 mg Chlorpromazine (Thorazine) 300 mg PO TID [facility] Stop: 10/04/18 20:59 Last Admin: 08/10/18 13:53 Dose: 300 mg Clonazepam (Klonopin) 1 mg PO BID [facility]; Protocol Stop: 10/05/18 08:59 Last Admin: 08/10/18 09:15 Dose: 1 mg Diphenhydramine HCl (Benadryl) 25 mg PO Q4H PRN PRN Reason: Itching Stop: 10/08/18 11:05 Fenofibrate (Tricor) 134 mg PO DAILY [facility] Stop: 10/05/18 08:59 Last Admin: 08/10/18 09:14 Dose: 134 mg Glipizide (Glucotrol) 5 mg PO BID [facility] Stop: 10/06/18 16:59 Last Admin: 08/10/18 09:15 Dose: 5 mg Glucagon (Glucagen) 1 mg SUBQ PRN PRN PRN Reason: BS BELOW 60 Stop: 10/04/18 12:54 Insulin Aspart (Novolog Insulin Sliding Scale) 0 units SUBQ ACHS [facility]; Protocol Stop: 10/04/18 16:29 Last Admin: 08/10/18 12:01 Dose: 4 units Insulin Detemir (Levemir Insulin) 34 units SUBQ BID [facility]; Protocol Stop: 10/04/18 16:59 Last Admin: 08/10/18 09:19 Dose: 34 units Lisinopril (Zestril) 5 mg PO 1300 [facility] Stop: 10/04/18 12:59 Last Admin: 08/10/18 13:52 Dose: 5 mg Lorazepam (Ativan) 0.5 mg PO Q6HR PRN; Protocol PRN Reason: Agitation Stop: 10/04/18 15:00 Last Admin: 08/08/18 02:55 Dose: 0.5 mg Magnesium Hydroxide (Milk Of Magnesia) 30 ml PO HS PRN PRN Reason: Constipation Zolpidem Tartrate (Ambien) 5 mg PO HS PRN PRN Reason: Insomnia Stop: 10/04/18 14:59 Last Admin: 08/08/18 21:20 Dose: 5 mg General: alert HEENT: NC/AT Neck: Supple Lungs: CTAB Cardiovascular: RRR, Normal S1, Normal S2, without murmur Abdomen: soft, non-tender, non-distended, positive bowel sound Neurological: alert Internal Medicine Assmt/Plan - Assessment Assessment: out of control dm HTN Dyslipidemia agitation Dementia - Plan Plan: monitor s/sx of hypo/hyperglycemia fall precautions continue current plan of care Nutritional Asmnt/Malnutr-PDOC - Dietary Evaluation Malnutrition Findings (Please click <Entered> for more info): Nutritional Asmnt/Malnutrition Start: 08/05/18 16: 23 Text: Status: Complete Freq: Protocol: Document 08/05/18 16:23 KRISTINE (Rec: 08/05/18 16:33 KRISTINE [email or web address]) Nutritional Asmnt/Malnutrition Patient General Information Nutritional Screening High Risk Consult Diagnosis psychosis Pertinent Medical Hx/Surgical Hx HTN, DM, dyslipidemia, psychosis agitation, dementia Subjective Information [place] is transfered [place] this afternoon. Visited pt in [place] this morning, pt seen very confused and agitated, not able to communicate. Consult received for diabetic, glucose level 568 at admission. Per EMR, PO consumed 100% of lunch today. Current Diet Order/ Nutrition Support CCHO 45g Pertinent Medications glucagen, novolog, levemir Pertinent Labs 08/04 glucose 568, POC 242 Nutritional Hx/Data Height 5 ft 10 in Height (Calculated Centimeters) 177.8 Current Weight (lbs) 150 lb Weight (Calculated Kilograms) 68.0 Weight (Calculated Grams) 94001.9 [place] Body Weight 166 Body Mass Index (BMI) 21.5 Weight Status Approriate GI Symptoms GI Symptoms None Last BM not indicated Difficult in: None Skin Integrity/Comment: amy De La Paz Current %PO Good (75-100%) Estimated Nutritional Goals BEE in Kcals: Using Current wt Calories/Kcals/Kg 25-30 Kcals Calculated 8036-3203 Protein: Using Current wt Protein g/k-1.2 Protein Calculated 68-82 Fluid: ml 1700-2040ml (1ml/kcal) Nutritional Problem 1. Problem Problem altered nutrition related labs Etiology hx of DM Signs/Symptoms: glucose 568, POC 242 Malnutrition Alert Is there a minimum of two criteria No selected? Query Text:Check all the applicable criteria. A minimum of two criteria are recommended for diagnosis of either severe or non-severe malnutrition. Intervention/Recommendation Comments 1. Continue with [facility] 45gm diet as ordered. Will send double protein and non-starch veggies per RN request. 2. Monitor PO intake, wt, labs and skin integrity 3. F/U as high risk in 2-3 days, 08/07-08/08 Expected Outcomes/Goals Expected Outcomes/Goals 1. PO intake to meet at least 75% of nutritional needs. 2. Wt stability, skin to remain intact, labs to approach WNL.
--- NOTE | 2018-08-10 18:12 | Progress Notes ---
DATE: SUBJECTIVE: Chart reviewed and the patient interviewed. Also discussed the patient's condition with the staff and reviewed records and labs. The patient is still forgetful and is still agitated. The patient also still needs lots of redirections. The patient also had episodes of yelling and screaming. Otherwise, the patient started to become more compliant with taking his medications with no side effects of medications. ASSESSMENT: The patient is still agitated. TREATMENT PLAN: Continue to monitor the patient's behavior and condition closely. Also, continue adjusting psychotropic medications and follow up closely. JOB# [id number]
[2018-08-11] MEDS: INSULIN ASPART SLIDING SCALE 100 UNITS/ML UNIT SUBQ SCH ×4 (06:43→21:42)
[2018-08-11] MEDS: Fenofibrate, Micronized 134 mg Cap PO SCH (08:32)
[2018-08-11] MEDS: Insulin Detemir 100 units/mL 10mL Vial SUBQ SCH ×2 (08:47→17:04)
--- NOTE | 2018-08-11 10:54 | Internal Medicine Prog Note ---
Internal Medicine Subjective - Subjective Service Date: 08/11/18 Patient is:: awake, agustin chair Per staff patient has:: tolerating meds Internal Medicine Objective - Results Recent Labs: Laboratory Last Values POC Glucose 200 MG/DL (70 - 105) H 08/11/18 08:39 - Physical Exam Vitals and I&O: Vital Signs Temp 97.4 F 08/10/18 20:00 Pulse 87 08/11/18 07:24 Resp 18 08/11/18 07:24 BP 130/78 08/10/18 20:00 Pulse Ox 96 08/11/18 07:24 Intake & Output 08/10/18 08/11/18 08/11/18 18:59 06:59 18:59 Intake Total 1400 120 Balance 1400 120 Intake: Oral 1400 120 Other: # Voids 4 3 # Bowel Movements 1 1 Active Medications: Current Medications Acetaminophen (Tylenol) 650 mg PO Q4H PRN PRN Reason: Pain Or Fever above 101 Stop: 10/04/18 12:54 Last Admin: 08/07/18 09:15 Dose: 650 mg Al Hydrox/Mg Hydrox/Simethicone (Maalox) 30 ml PO Q4HR PRN PRN Reason: GI DISTRESS Stop: 10/04/18 14:59 Albuterol/Ipratropium (Duoneb Neb) 3 ml HHN Q2HRT PRN PRN Reason: Shortness of Breath Stop: 10/04/18 12:54 Aspirin (Ecotrin) 81 mg PO DAILY [facility] Stop: 10/05/18 08:59 Last Admin: 08/11/18 08:32 Dose: 81 mg Chlorpromazine (Thorazine) 300 mg PO TID [facility] Stop: 10/04/18 20:59 Last Admin: 08/11/18 08:31 Dose: 300 mg Clonazepam (Klonopin) 1 mg PO BID [facility]; Protocol Stop: 10/05/18 08:59 Last Admin: 08/11/18 08:32 Dose: 1 mg Diphenhydramine HCl (Benadryl) 25 mg PO Q4H PRN PRN Reason: Itching Stop: 10/08/18 11:05 Fenofibrate (Tricor) 134 mg PO DAILY [facility] Stop: 10/05/18 08:59 Last Admin: 08/11/18 08:32 Dose: 134 mg Glipizide (Glucotrol) 5 mg PO BID [facility] Stop: 10/06/18 16:59 Last Admin: 08/11/18 08:31 Dose: 5 mg Glucagon (Glucagen) 1 mg SUBQ PRN PRN PRN Reason: BS BELOW 60 Stop: 10/04/18 12:54 Insulin Aspart (Novolog Insulin Sliding Scale) 0 units SUBQ ACHS [facility]; Protocol Stop: 10/04/18 16:29 Last Admin: 08/11/18 06:43 Dose: Not Given Insulin Detemir (Levemir Insulin) 34 units SUBQ BID [facility]; Protocol Stop: 10/04/18 16:59 Last Admin: 08/11/18 08:47 Dose: 34 units Lisinopril (Zestril) 5 mg PO 1300 [facility] Stop: 10/04/18 12:59 Last Admin: 08/10/18 13:52 Dose: 5 mg Lorazepam (Ativan) 0.5 mg PO Q6HR PRN; Protocol PRN Reason: Agitation Stop: 10/04/18 15:00 Last Admin: 08/08/18 02:55 Dose: 0.5 mg Magnesium Hydroxide (Milk Of Magnesia) 30 ml PO HS PRN PRN Reason: Constipation Zolpidem Tartrate (Ambien) 5 mg PO HS PRN PRN Reason: Insomnia Stop: 10/04/18 14:59 Last Admin: 08/08/18 21:20 Dose: 5 mg General: alert HEENT: NC/AT Neck: Supple Lungs: CTAB Cardiovascular: RRR, Normal S1, Normal S2, without murmur Abdomen: soft, non-tender, non-distended, positive bowel sound Neurological: alert Internal Medicine Assmt/Plan - Assessment Assessment: out of control dm HTN Dyslipidemia agitation Dementia - Plan Plan: monitor s/sx of hypo/hyperglycemia fall precautions continue current plan of care Nutritional Asmnt/Malnutr-PDOC - Dietary Evaluation Malnutrition Findings (Please click <Entered> for more info): Nutritional Asmnt/Malnutrition Start: 08/05/18 16: 23 Text: Status: Complete Freq: Protocol: Document 08/05/18 16:23 KRISTINE (Rec: 08/05/18 16:33 KRISTINE [email or web address]) Nutritional Asmnt/Malnutrition Patient General Information Nutritional Screening High Risk Consult Diagnosis psychosis Pertinent Medical Hx/Surgical Hx HTN, DM, dyslipidemia, psychosis agitation, dementia Subjective Information Pt is transfered from [place] this afternoon. Visited pt in [place] this morning, pt seen very confused and agitated, not able to communicate. Consult received for diabetic, glucose level 568 at admission. Per EMR, PO consumed 100% of lunch today. Current Diet Order/ Nutrition Support CCHO 45g Pertinent Medications glucagen, novolog, levemir Pertinent Labs 08/04 glucose 568, POC 242 Nutritional Hx/Data Height 5 ft 10 in Height (Calculated Centimeters) 177.8 Current Weight (lbs) 150 lb Weight (Calculated Kilograms) 68.0 Weight (Calculated Grams) 60725.9 [place] Body Weight 166 Body Mass Index (BMI) 21.5 Weight Status Approriate GI Symptoms GI Symptoms None Last BM not indicated Difficult in: None Skin Integrity/Comment: amy De La Paz Current %PO Good (75-100%) Estimated Nutritional Goals BEE in Kcals: Using Current wt Calories/Kcals/Kg 25-30 Kcals Calculated 1296-9551 Protein: Using Current wt Protein g/k-1.2 Protein Calculated 68-82 Fluid: ml 1700-2040ml (1ml/kcal) Nutritional Problem 1. Problem Problem altered nutrition related labs Etiology hx of DM Signs/Symptoms: glucose 568, POC 242 Malnutrition Alert Is there a minimum of two criteria No selected? Query Text:Check all the applicable criteria. A minimum of two criteria are recommended for diagnosis of either severe or non-severe malnutrition. Intervention/Recommendation Comments 1. [facility] as [facility]. Will send double protein and non-starch veggies per RN request. 2. Monitor PO intake, wt, labs and skin integrity 3. F/U as high risk in 2-3 days, 08/07-08/08 Expected Outcomes/Goals Expected Outcomes/Goals 1. PO intake to meet at least 75% of nutritional needs. 2. Wt stability, skin to remain intact, labs to approach WNL.
--- NOTE | 2018-08-12 06:20 | Progress Notes ---
DATE: 08/11/2018 SUBJECTIVE: Chart reviewed and the patient interviewed. Also discussed the patient's condition with the staff and reviewed records and labs. The patient is still anxious and is still in irritable mood. The patient also is still easily agitated and needs lots of redirections. The patient also still has difficulty following directions and still has episodes of being demanding. ASSESSMENT: The patient is still agitated and needs still close monitoring. TREATMENT PLAN: Continue to monitor his behavior and his condition closely. Also continue adjusting psychotropic medications and continue to follow up. JOB# [id number]
[2018-08-12] MEDS: INSULIN ASPART SLIDING SCALE 100 UNITS/ML UNIT SUBQ SCH ×5 (06:43→20:35)
[2018-08-12] MEDS: Fenofibrate, Micronized 134 mg Cap PO SCH (09:30)
[2018-08-12] MEDS: Insulin Detemir 100 units/mL 10mL Vial SUBQ SCH ×2 (09:30→17:40)
--- NOTE | 2018-08-12 12:55 | Internal Medicine Prog Note ---
Internal Medicine Subjective - Subjective Service Date: 08/12/18 Patient is:: awake, agustin chair Per staff patient has:: tolerating meds Internal Medicine Objective - Results Recent Labs: Laboratory Last Values POC Glucose 388 MG/DL (70 - 105) H 08/12/18 11:19 - Physical Exam Vitals and I&O: Vital Signs Temp 98.2 F 08/11/18 20:51 Pulse 97 08/12/18 12:33 Resp 18 08/12/18 07:37 BP 149/92 08/12/18 12:33 Pulse Ox 96 08/12/18 07:37 Intake & Output 08/11/18 08/12/18 08/12/18 18:59 06:59 18:59 Intake Total 1320 Balance 1320 Intake: Oral 1320 Other: # Voids 4 # Bowel Movements 1 Active Medications: Current Medications Acetaminophen (Tylenol) 650 mg PO Q4H PRN PRN Reason: Pain Or Fever above 101 Stop: 10/04/18 12:54 Last Admin: 08/07/18 09:15 Dose: 650 mg Al Hydrox/Mg Hydrox/Simethicone (Maalox) 30 ml PO Q4HR PRN PRN Reason: GI DISTRESS Stop: 10/04/18 14:59 Albuterol/Ipratropium (Duoneb Neb) 3 ml HHN Q2HRT PRN PRN Reason: Shortness of Breath Stop: 10/04/18 12:54 Aspirin (Ecotrin) 81 mg PO DAILY [facility] Stop: 10/05/18 08:59 Last Admin: 08/12/18 09:30 Dose: 81 mg Chlorpromazine (Thorazine) 300 mg PO TID [facility] Stop: 10/04/18 20:59 Last Admin: 08/12/18 09:30 Dose: 300 mg Clonazepam (Klonopin) 1 mg PO BID [facility]; Protocol Stop: 10/05/18 08:59 Last Admin: 08/12/18 09:30 Dose: 1 mg Diphenhydramine HCl (Benadryl) 25 mg PO Q4H PRN PRN Reason: Itching Stop: 10/08/18 11:05 Fenofibrate (Tricor) 134 mg PO DAILY [facility] Stop: 10/05/18 08:59 Last Admin: 08/12/18 09:30 Dose: 134 mg Glipizide (Glucotrol) 5 mg PO BID [facility] Stop: 10/06/18 16:59 Last Admin: 08/12/18 09:30 Dose: 5 mg Glucagon (Glucagen) 1 mg SUBQ PRN PRN PRN Reason: BS BELOW 60 Stop: 10/04/18 12:54 Insulin Aspart (Novolog Insulin Sliding Scale) 0 units SUBQ ACHS [facility]; Protocol Stop: 10/04/18 16:29 Last Admin: 08/12/18 11:24 Dose: 10 units Insulin Detemir (Levemir Insulin) 34 units SUBQ BID [facility]; Protocol Stop: 10/04/18 16:59 Last Admin: 08/12/18 09:30 Dose: 34 units Lisinopril (Zestril) 5 mg PO 1300 [facility] Stop: 10/04/18 12:59 Last Admin: 08/12/18 12:33 Dose: 5 mg Lorazepam (Ativan) 0.5 mg PO Q6HR PRN; Protocol PRN Reason: Agitation Stop: 10/04/18 15:00 Last Admin: 08/08/18 02:55 Dose: 0.5 mg Magnesium Hydroxide (Milk Of Magnesia) 30 ml PO HS PRN PRN Reason: Constipation Zolpidem Tartrate (Ambien) 5 mg PO HS PRN PRN Reason: Insomnia Stop: 10/04/18 14:59 Last Admin: 08/08/18 21:20 Dose: 5 mg General: alert HEENT: NC/AT Neck: Supple Lungs: CTAB Cardiovascular: RRR, Normal S1, Normal S2, without murmur Abdomen: soft, non-tender, non-distended, positive bowel sound Neurological: alert Internal Medicine Assmt/Plan - Assessment Assessment: out of control dm HTN Dyslipidemia agitation Dementia - Plan Plan: monitor s/sx of hypo/hyperglycemia fall precautions continue current plan of care Nutritional Asmnt/Malnutr-PDOC - Dietary Evaluation Malnutrition Findings (Please click <Entered> for more info): Nutritional Asmnt/Malnutrition Start: 08/05/18 16: 23 Text: Status: Complete Freq: Protocol: Document 08/05/18 16:23 [email or web address] (Rec: 08/05/18 16:33 KRISTINE [email or web address]) Nutritional Asmnt/Malnutrition Patient General Information Nutritional Screening High Risk Consult Diagnosis psychosis Pertinent Medical Hx/Surgical Hx HTN, DM, dyslipidemia, psychosis agitation, dementia Subjective Information Pt is transfered from [place] this afternoon. Visited pt in [place] this morning, pt seen very confused and agitated, not able to communicate. Consult received for diabetic, glucose level 568 at admission. Per EMR, PO consumed 100% of lunch today. Current Diet Order/ Nutrition Support CCHO 45g Pertinent Medications glucagen, novolog, levemir Pertinent Labs 08/04 glucose 568, POC 242 Nutritional Hx/Data Height 5 ft 10 in Height (Calculated Centimeters) 177.8 Current Weight (lbs) 150 lb Weight (Calculated Kilograms) 68.0 Weight (Calculated Grams) 51584.9 [place] Body Weight 166 Body Mass Index (BMI) 21.5 Weight Status Approriate GI Symptoms GI Symptoms None Last BM not indicated Difficult in: None Skin Integrity/Comment: amy De La Paz Current %PO Good (75-100%) Estimated Nutritional Goals BEE in Kcals: Using Current wt Calories/Kcals/Kg 25-30 Kcals Calculated 3304-2741 Protein: Using Current wt Protein g/k-1.2 Protein Calculated 68-82 Fluid: ml 1700-2040ml (1ml/kcal) Nutritional Problem 1. Problem Problem altered nutrition related labs Etiology hx of DM Signs/Symptoms: glucose 568, POC 242 Malnutrition Alert Is there a minimum of two criteria No selected? Query Text:Check all the applicable criteria. A minimum of two criteria are recommended for diagnosis of either severe or non-severe malnutrition. Intervention/Recommendation Comments 1. Continue with [facility] 45gm diet as ordered. Will send double protein and non-starch veggies per RN request. 2. Monitor PO intake, wt, labs and skin integrity 3. F/U as high risk in 2-3 days, 08/07-08/08 Expected Outcomes/Goals Expected Outcomes/Goals 1. PO intake to meet at least 75% of nutritional needs. 2. Wt stability, skin to remain intact, labs to approach WNL.
--- NOTE | 2018-08-13 00:48 | Progress Notes ---
DATE: 08/12/2018 SUBJECTIVE: Chart reviewed and the patient interviewed. Also, discussed the patient's condition with the staff and reviewed records and labs. The patient is still easily agitated and he is still confused. The patient also still has difficulty expressing himself and difficulty expressing his needs. The patient also is still having episodes of resisting care and fighting with the staff. Otherwise, the patient is more compliant with taking his medications with no side effects of Thorazine or Klonopin. ASSESSMENT: The patient is still agitated, but slightly calmer than before. TREATMENT PLAN: Continue to monitor his behavior and condition closely. Also, continue adjusting psychotropic medications and followup. JOB# [id number]
[2018-08-13] MEDS: INSULIN ASPART SLIDING SCALE 100 UNITS/ML UNIT SUBQ SCH ×4 (07:30→20:18)
[2018-08-13] MEDS: Insulin Detemir 100 units/mL 10mL Vial SUBQ SCH ×2 (09:11→16:59)
[2018-08-13] MEDS: Fenofibrate, Micronized 134 mg Cap PO SCH (09:34)
--- NOTE | 2018-08-13 11:09 | Internal Medicine Prog Note ---
Internal Medicine Subjective - Subjective Service Date: 08/13/18 Patient is:: awake, agustin chair Per staff patient has:: tolerating meds Internal Medicine Objective - Results Recent Labs: Laboratory Last Values POC Glucose 298 MG/DL (70 - 105) H 08/13/18 09:02 - Physical Exam Vitals and I&O: Vital Signs Temp 97.2 F 08/13/18 06:00 Pulse 89 08/13/18 07:10 Resp 18 08/13/18 07:10 BP 163/100 08/13/18 06:00 Pulse Ox 97 08/13/18 07:10 Intake & Output 08/12/18 08/13/18 08/13/18 18:59 06:59 18:59 Intake Total 900 180 Balance 900 180 Intake: Oral 900 180 Other: # Voids 3 2 # Bowel Movements 1 0 Active Medications: Current Medications Acetaminophen (Tylenol) 650 mg PO Q4H PRN PRN Reason: Pain Or Fever above 101 Stop: 10/04/18 12:54 Last Admin: 08/07/18 09:15 Dose: 650 mg Al Hydrox/Mg Hydrox/Simethicone (Maalox) 30 ml PO Q4HR PRN PRN Reason: GI DISTRESS Stop: 10/04/18 14:59 Albuterol/Ipratropium (Duoneb Neb) 3 ml HHN Q2HRT PRN PRN Reason: Shortness of Breath Stop: 10/04/18 12:54 Aspirin (Ecotrin) 81 mg PO DAILY [facility] Stop: 10/05/18 08:59 Last Admin: 08/12/18 09:30 Dose: 81 mg Chlorpromazine (Thorazine) 300 mg PO TID CORIE Stop: 10/04/18 20:59 Last Admin: 08/12/18 22:18 Dose: 300 mg Clonazepam (Klonopin) 1 mg PO BID [facility]; Protocol Stop: 10/05/18 08:59 Last Admin: 08/12/18 18:43 Dose: 1 mg Diphenhydramine HCl (Benadryl) 25 mg PO Q4H PRN PRN Reason: Itching Stop: 10/08/18 11:05 Divalproex Sodium (Depakote Dr) 500 mg PO BID [facility]; Protocol Stop: 10/12/18 08:59 Fenofibrate (Tricor) 134 mg PO DAILY [facility] Stop: 10/05/18 08:59 Last Admin: 08/12/18 09:30 Dose: 134 mg Glipizide (Glucotrol) 5 mg PO BID [facility] Stop: 10/06/18 16:59 Last Admin: 08/12/18 18:43 Dose: 5 mg Glucagon (Glucagen) 1 mg SUBQ PRN PRN PRN Reason: BS BELOW 60 Stop: 10/04/18 12:54 Insulin Aspart (Novolog Insulin Sliding Scale) 0 units SUBQ ACHS [facility]; Protocol Stop: 10/04/18 16:29 Last Admin: 08/13/18 07:30 Dose: Not Given Insulin Detemir (Levemir Insulin) 34 units SUBQ BID [facility]; Protocol Stop: 10/04/18 16:59 Last Admin: 08/13/18 09:11 Dose: 34 units Lisinopril (Zestril) 5 mg PO 1300 [facility] Stop: 10/04/18 12:59 Last Admin: 08/12/18 12:33 Dose: 5 mg Lorazepam (Ativan) 0.5 mg PO Q6HR PRN; Protocol PRN Reason: Agitation Stop: 10/04/18 15:00 Last Admin: 08/08/18 02:55 Dose: 0.5 mg Magnesium Hydroxide (Milk Of Magnesia) 30 ml PO HS PRN PRN Reason: Constipation Zolpidem Tartrate (Ambien) 5 mg PO HS PRN PRN Reason: Insomnia Stop: 10/04/18 14:59 Last Admin: 08/08/18 21:20 Dose: 5 mg General: alert HEENT: NC/AT Neck: Supple Lungs: CTAB Cardiovascular: RRR, Normal S1, Normal S2, without murmur Abdomen: soft, non-tender, non-distended, positive bowel sound Neurological: alert Internal Medicine Assmt/Plan - Assessment Assessment: out of control dm HTN Dyslipidemia agitation Dementia - Plan Plan: monitor s/sx of hypo/hyperglycemia fall precautions continue current plan of care Nutritional Asmnt/Malnutr-PDOC - Dietary Evaluation Malnutrition Findings (Please click <Entered> for more info): Nutritional Asmnt/Malnutrition Start: 08/05/18 16: 23 Text: Status: Complete Freq: Protocol: Document 08/05/18 16:23 [email or web address] (Rec: 08/05/18 16:33 LCHENG [email or web address]) Nutritional Asmnt/Malnutrition Patient General Information Nutritional Screening High Risk Consult Diagnosis psychosis Pertinent Medical Hx/Surgical Hx HTN, DM, dyslipidemia, psychosis agitation, dementia Subjective Information Pt is transfered from [place] this afternoon. Visited pt in [place] this morning, pt seen very confused and agitated, not able to communicate. Consult received for diabetic, glucose level 568 at admission. Per EMR, PO consumed 100% of lunch today. Current Diet Order/ Nutrition Support CCHO 45g Pertinent Medications glucagen, novolog, levemir Pertinent Labs 08/04 glucose 568, POC 242 Nutritional Hx/Data Height 5 ft 10 in Height (Calculated Centimeters) 177.8 Current Weight (lbs) 150 lb Weight (Calculated Kilograms) 68.0 Weight (Calculated Grams) 40927.9 [place] Body Weight 166 Body Mass Index (BMI) 21.5 Weight Status Approriate GI Symptoms GI Symptoms None Last BM not indicated Difficult in: None Skin Integrity/Comment: amy 14 Current %PO Good (75-100%) Estimated Nutritional Goals BEE in Kcals: Using Current wt Calories/Kcals/Kg 25-30 Kcals Calculated 6232-3170 Protein: Using Current wt Protein g/k-1.2 Protein Calculated 68-82 Fluid: ml 1700-2040ml (1ml/kcal) Nutritional Problem 1. Problem Problem altered nutrition related labs Etiology hx of DM Signs/Symptoms: glucose 568, POC 242 Malnutrition Alert Is there a minimum of two criteria No selected? Query Text:Check all the applicable criteria. A minimum of two criteria are recommended for diagnosis of either severe or non-severe malnutrition. Intervention/Recommendation Comments 1. Continue with CCHO 45gm diet as ordered. Will send double protein and non-starch veggies per RN request. 2. Monitor PO intake, wt, labs and skin integrity 3. F/U as high risk in 2-3 days, 08/07-08/08 Expected Outcomes/Goals Expected Outcomes/Goals 1. PO intake to meet at least 75% of nutritional needs. 2. Wt stability, skin to remain intact, labs to approach WNL.
--- NOTE | 2018-08-13 18:11 | Progress Notes ---
DATE: 08/13/2018 SUBJECTIVE: Chart reviewed and the patient interviewed. Also, discussed the patient's condition with the staff and reviewed records and labs. The patient's affect is brighter and the patient is less irritable and less agitated, but he is still having mood swings and unpredictable behavior. Also, the patient still needs redirections. He also still has episodes of anger. Otherwise, the patient is compliant with taking his medications with no side effects. ASSESSMENT: The patient still has episodes of agitation and irritability. TREATMENT PLAN: We will continue to monitor his behavior and we will continue to work on his irritability and his agitation. Also, we will add a Depakote in a dose of 500 mg twice a day and will continue to follow up. JOB# [id number]
[2018-08-14] MEDS: INSULIN ASPART SLIDING SCALE 100 UNITS/ML UNIT SUBQ SCH ×2 (06:39→11:47)
--- NOTE | 2018-08-14 09:46 | Internal Medicine Prog Note ---
Internal Medicine Subjective - Subjective Service Date: 08/14/18 Patient is:: awake, agustin chair Per staff patient has:: tolerating meds Internal Medicine Objective - Results Recent Labs: Laboratory Last Values POC Glucose 235 MG/DL (70 - 105) H 08/14/18 06:07 - Physical Exam Vitals and I&O: Vital Signs Temp 97.7 F 08/14/18 05:24 Pulse 92 08/14/18 07:02 Resp 18 08/14/18 07:02 BP 155/87 08/14/18 05:24 Pulse Ox 97 08/14/18 07:02 Intake & Output 08/13/18 08/14/18 08/14/18 18:59 06:59 18:59 Intake Total 1800 120 Balance 1800 120 Intake: Oral 1800 120 Other: # Voids 4 3 # Bowel Movements 1 Active Medications: Current Medications Acetaminophen (Tylenol) 650 mg PO Q4H PRN PRN Reason: Pain Or Fever above 101 Stop: 10/04/18 12:54 Last Admin: 08/07/18 09:15 Dose: 650 mg Al Hydrox/Mg Hydrox/Simethicone (Maalox) 30 ml PO Q4HR PRN PRN Reason: GI DISTRESS Stop: 10/04/18 14:59 Albuterol/Ipratropium (Duoneb Neb) 3 ml HHN Q2HRT PRN PRN Reason: Shortness of Breath Stop: 10/04/18 12:54 Aspirin (Ecotrin) 81 mg PO DAILY [facility] Stop: 10/05/18 08:59 Last Admin: 08/13/18 09:30 Dose: 81 mg Chlorpromazine (Thorazine) 300 mg PO TID CORIE Stop: 10/04/18 20:59 Last Admin: 08/13/18 20:18 Dose: 300 mg Clonazepam (Klonopin) 1 mg PO BID CORIE; Protocol Stop: 10/05/18 08:59 Last Admin: 08/13/18 17:01 Dose: 1 mg Diphenhydramine HCl (Benadryl) 25 mg PO Q4H PRN PRN Reason: Itching Stop: 10/08/18 11:05 Divalproex Sodium (Depakote Dr) 500 mg PO BID [facility]; Protocol Stop: 10/12/18 08:59 Last Admin: 08/13/18 17:01 Dose: 500 mg Fenofibrate (Tricor) 134 mg PO DAILY [facility] Stop: 10/05/18 08:59 Last Admin: 08/13/18 09:34 Dose: 134 mg Glipizide (Glucotrol) 5 mg PO BID [facility] Stop: 10/06/18 16:59 Last Admin: 08/13/18 17:01 Dose: 5 mg Glucagon (Glucagen) 1 mg SUBQ PRN PRN PRN Reason: BS BELOW 60 Stop: 10/04/18 12:54 Insulin Aspart (Novolog Insulin Sliding Scale) 0 units SUBQ ACHS [facility]; Protocol Stop: 10/04/18 16:29 Last Admin: 08/14/18 06:39 Dose: 4 units Insulin Detemir (Levemir Insulin) 34 units SUBQ BID [facility]; Protocol Stop: 10/04/18 16:59 Last Admin: 08/13/18 16:59 Dose: 34 units Lisinopril (Zestril) 5 mg PO 1300 [facility] Stop: 10/04/18 12:59 Last Admin: 08/13/18 13:38 Dose: 5 mg Lorazepam (Ativan) 0.5 mg PO Q6HR PRN; Protocol PRN Reason: Agitation Stop: 10/04/18 15:00 Last Admin: 08/08/18 02:55 Dose: 0.5 mg Magnesium Hydroxide (Milk Of Magnesia) 30 ml PO HS PRN PRN Reason: Constipation Zolpidem Tartrate (Ambien) 5 mg PO HS PRN PRN Reason: Insomnia Stop: 10/04/18 14:59 Last Admin: 08/08/18 21:20 Dose: 5 mg General: alert HEENT: NC/AT Neck: Supple Lungs: CTAB Cardiovascular: RRR, Normal S1, Normal S2, without murmur Abdomen: soft, non-tender, non-distended, positive bowel sound Neurological: alert Internal Medicine Assmt/Plan - Assessment Assessment: out of control dm HTN Dyslipidemia agitation Dementia - Plan Plan: monitor s/sx of hypo/hyperglycemia fall precautions continue current plan of care Nutritional Asmnt/Malnutr-PDOC - Dietary Evaluation Malnutrition Findings (Please click <Entered> for more info): Nutritional Asmnt/Malnutrition Start: 08/05/18 16: 23 Text: Status: Complete Freq: Protocol: Document 08/05/18 16:23 LCBRUNA (Rec: 08/05/18 16:33 BRUNA [email or web address]) Nutritional Asmnt/Malnutrition Patient General Information Nutritional Screening High Risk Consult Diagnosis psychosis Pertinent Medical Hx/Surgical Hx HTN, DM, dyslipidemia, psychosis agitation, dementia Subjective Information Pt is transfered from [place] this afternoon. Visited pt in [place] this morning, pt seen very confused and agitated, not able to communicate. Consult received for diabetic, glucose level 568 at admission. Per EMR, PO consumed 100% of lunch today. Current Diet Order/ Nutrition Support CCHO 45g Pertinent Medications glucagen, novolog, levemir Pertinent Labs 08/04 glucose 568, POC 242 Nutritional Hx/Data Height 5 ft 10 in Height (Calculated Centimeters) 177.8 Current Weight (lbs) 150 lb Weight (Calculated Kilograms) 68.0 Weight (Calculated Grams) 15987.9 [place] Body Weight 166 Body Mass Index (BMI) 21.5 Weight Status Approriate GI Symptoms GI Symptoms None Last BM not indicated Difficult in: None Skin Integrity/Comment: amy [place] Current %PO Good (75-100%) Estimated Nutritional Goals BEE in Kcals: Using Current wt Calories/Kcals/Kg 25-30 Kcals Calculated 0105-0612 Protein: Using Current wt Protein g/k-1.2 Protein Calculated 68-82 Fluid: ml 1700-2040ml (1ml/kcal) Nutritional Problem 1. Problem Problem altered nutrition related labs Etiology hx of DM Signs/Symptoms: glucose 568, POC 242 Malnutrition Alert Is there a minimum of two criteria No selected? Query Text:Check all the applicable criteria. A minimum of two criteria are recommended for diagnosis of either severe or non-severe malnutrition. Intervention/Recommendation Comments 1. [facility]. Will send double protein and non-starch veggies per RN request. 2. Monitor PO intake, wt, labs and skin integrity 3. F/U as high risk in 2-3 days, 08/07-08/08 Expected Outcomes/Goals Expected Outcomes/Goals 1. PO intake to meet at least 75% of nutritional needs. 2. Wt stability, skin to remain intact, labs to approach WNL.
[2018-08-14] MEDS: Fenofibrate, Micronized 134 mg Cap PO SCH (09:50)
[2018-08-14] MEDS: Insulin Detemir 100 units/mL 10mL Vial SUBQ SCH (09:51)
--- NOTE | 2018-08-15 00:24 | Discharge Summary ---
DATE OF DISCHARGE: 08/14/2018 PATIENT'S AGE: 58. SEX: Male. PHYSICIAN: Dr. Dhaliwal. FINAL DIAGNOSIS/PRIMARY DIAGNOSIS: Schizoaffective disorder, bipolar type, severe, with psychotic features. REASON FOR HOSPITALIZATION: The patient was admitted to the hospital because of increased irritability, agitation, and because of inability to follow directions. The patient also was not able to function and was in angry mood. HOSPITAL COURSE: The patient continued to be in irritable and angry mood. The patient also is easily agitated and easily irritable. The patient was started back on Thorazine that was not available in the beginning of hospitalization, but later on Thorazine was available. The patient continued to be in irritable mood. The patient was given Depakote in a dose of 500 mg twice a day. Gradually, the patient's affect was brighter. The patient was less irritable and less agitated and was easier to follow directions and the patient was discharged from the hospital. Physical exam of the patient showed that the patient has diabetes mellitus. AFTER DISCHARGE PLANS: The patient discharged from the hospital with plans to follow him up in [facility]. EXPECTED OUTCOME AFTER DISCHARGE: Fair if the patient continues with his outpatient treatment and follow up with discharge plans. [facility]# [id number]
== END 2018-08-14 15:00 | DRG 885 ==
LOC: GERO 12:14
PROVIDERS: ADMIT Psychiatry & Neurology Psychiatry; ATTEND Psychiatry & Neurology Psychiatry
DX: F25.0 Schizoaffective disorder, bipolar type (principal); E11.9 Type 2 diabetes mellitus without complications; J44.9 Chronic obstructive pulmonary disease, unspecified; I10 Essential (primary) hypertension; Z79.4 Long term (current) use of insulin
CPT/HCPCS: 82948-90; 90732; 90899; 94760; G0410; J1815; Q0161; Z7610